=== PATIENT | female | born 1940 | race Caucasian/White ===

== ENCOUNTER → 2016-07-07 | Outpatient (CLI) | payer BC ==
[~2016-07-07] MED LIST: CALC-388 PO; CALC500C70 PO; CHOL100010 PO; CRD200 PO; CTP/1 PO; DENOINJ SC; DOCU-94 PO; FMR25 PO; FOLI1TAB8 PO; LISI40TA PO; METH2.5T PO; METO25TA3 PO; METO25TA56 PO; MULT-506 PO; ONDA8TAB6 PO; PRD/1 PO; PRED-301 PO; PROC1TAB5 PO; RIVA1TAB4 PO; TRAM-10 PO; TRIA37.5 PO; TRIATAB3 PO; XRL20 PO; ZNTT/150 PO
--- NOTE | 2016-07-07 13:46 | Discharge Instructions ---
Discharge Instructions Procedure Procedure Date: Jul 07, 2016. Reason for visit: Left Neck Mass. Discharge Discharge Date: Jul 07, 2016. Discharge Diagnosis: s/p left supraclavicular node biopsy Instructions Activity Recommendations: No limitations Return to School/Work: no limitations Recommended Home Diet: No Limitations Provider Instructions: ACTIVITY RECOMMENDATIONS: * Rest today. * Resume regular activity in one day. MEDICATIONS: * May take Tylenol or Ibuprofen as needed for pain. DIET: * Resume previous diet. SPECIAL CARE INSTRUCTIONS: Call your doctor if: * Temperature above 101 degrees F. * Pain not relieved by pain medicine ordered. * Increased drainage or redness from incision. * Notify your doctor with any questions or concerns. Call your doctor or go to the nearest Emergency Department if you experience: * Increased chest pain or shortness of breath. FOLLOW UP VISIT: Follow-up with Referring Physician as scheduled. Allergies Coded Allergies: Diphenhydramine (Verified Adverse Reaction, Mild, POOR TOLERANCE OF BENADRYL IV, 08/07/09) POOR TOLERANCE OF BENADRYL No Known Allergies (Verified , 08/19/05) Kendall Kaur Recommendations: Call your doctor if: * Temperature above 101 degrees * Pain not relieved by pain medicine ordered * There is increased drainage or redness from any incision * You have any unanswered questions or concerns. Your Doctors Instructions noted above were prepared by provider Raphael Johnson. Patient Signature Section: Patient Instructions Signature Page Vera Caban Patient (or Guardian) Signature/Date: I have read and understand the instructions given to me by my caregivers. Caregiver/RN/Doctor Signature/Date: The above-named patient and/or guardian has received patient instructions on this date. + Original Patient Signature Page (only) stays with chart. Please make copy for patient.
--- NOTE | 2016-07-07 14:33 | DIAGNOSTIC IMAGING REPORT ---
ULTRASOUND GUIDED FINE NEEDLE ASPIRATION OF LEFT SUPRACLAVICULAR MASS CLINICAL HISTORY: Left neck mass. Request for biopsy. COMPARISON STUDY: Neck CT July 01, 2016. PROCEDURE: Sonography of the left neck demonstrated several hypoechoic irregular left supraclavicular masses which measure up to 1.9 cm and correspond to the lesion shown on CT of July 01, 2016. These may reflect pathologic lymph nodes. The largest was targeted for biopsy. The procedure, risks and benefits were discussed with the patient. Informed written consent was obtained. The procedure was performed by Dr. Johnson following a timeout. Skin of the left supraclavicular region was prepped and draped in sterile fashion and local anesthesia achieved with 1% lidocaine. Under direct ultrasound guidance, 4 fine needle aspirations were performed. Initial aspiration was performed with a 25-gauge needle. The 3 subsequent aspirations were performed with 22-gauge needles. The samples were deemed preliminarily adequate by pathology. Atypical cells suspicious for malignancy were noted. The patient tolerated the procedure well and no immediate complications were evident. IMPRESSION: Ultrasound guided fine needle aspiration of 1.9 cm left supraclavicular mass/lymph node. Electronically signed by: Raphael Johnson M.D. 07/07/2016 2:31 PM Dictated Date/Time: 07/07/2016 2:28 PM
== END | disposition home or self-care (01) ==
LOC: C.ULTR 12:47
DX: C79.89 Secondary malignant neoplasm of other specified sites (principal)

== ENCOUNTER 2016-07-21 14:06 | Inpatient (IN) | payer BC, OTHER ==
[~2016-07-21] VITALS: Ht 165.1 cm; Wt 96.8 kg
[~2016-07-21 14:06] MED LIST changes: -CALC-388 PO; -CRD200 PO; -CTP/1 PO; -DENOINJ SC; -DOCU-94 PO; -FMR25 PO; +FOLI1TAB7 PO; -FOLI1TAB8 PO; -METO25TA3 PO; -METO25TA56 PO; -ONDA8TAB6 PO; -PRD/1 PO; -PROC1TAB5 PO; -RIVA1TAB4 PO; -TRAM-10 PO; -TRIA37.5 PO; -TRIATAB3 PO; -XRL20 PO
[2016-07-21] MEDS ORDERED: ACETAMINOPHEN 325 MG TAB PO PRN (14:15)
[2016-07-21] MEDS ORDERED: ONDANSETRON INJ 2 MG/ML 2 ML VIAL IV PRN (14:15)
[2016-07-21] MEDS ORDERED: POLYETHYLENE (MIRALAX) 17 GM PACK PO PRN (14:15)
[2016-07-21] MEDS ORDERED: MAGNESIUM HYDROXIDE SUSP 30 ML UDC PO PRN (14:15)
[2016-07-21 14:31] VITALS: BP 190/101; PULSE 71; TEMP 36.7; O2SAT 97; Ht 165.1 cm; Wt 96.8 kg
[2016-07-21] MEDS ORDERED: ALBUT/IPRATROP 3MG/0.5MG NEB 3 ML VIAL INH PRN (15:30)
--- NOTE | 2016-07-21 15:52 | History and Physical ---
History & Physical Date & Time of Service: Jul 21, 2016 at 15:38 Chief Complaint: Paracardial Effusion Primary Care Physician: Ernesto Becker M.D. History of Present Illness Source: patient, clinic records, hospital records This patient is a pleasant 76-year-old female that was directly admitted to the hospital from Dr. Barragan's office for worsening shortness of breath. The patient notes that she gets very winded with minimal exertion. The patient has a history of recurrent metastatic breast cancer. She had a biopsy performed on 07/07/2016 of a neck mass that confirmed it was metastatic breast CA. She also underwent a PET scan yesterday, which shows metastatic disease throughout her bones. The patient initially had breast cancer approximate 10 years ago and underwent a mastectomy and chemotherapy. She was also on tamoxifen. It was discovered that the patient had a pericardial effusion and aortic stenosis at the beginning of 2015. She was following with Dr. Jackson. There is concern that the paracardial effusion has gotten larger per PET scan yesterday and may be secondary to her metastatic disease. This is her reason for admission today. She currently denies any chest pain. No shortness of breath at rest. No recent illnesses. No fever or chills. The patient takes chronic immunosuppression, prednisone and methotrexate for a history of ankylosing spondylitis. Past Medical/Surgical History Initial breast cancer of the left breast status post mastectomy and chemotherapy in 2005 Recent discovery of a cervical mass status post biopsy confirms metastatic breast adenocarcinoma Hypertension Osteopenia Thyroid nodules Ankylosing spondylitis History of thyroid nodule status post partial thyroidectomy Secondary hyperparathyroidism GERD Social History Smoking Status: Former Smoker Alcohol Use: none Immunizations History of Influenza Vaccine: Yes History of Tetanus Vaccine?: No History of Pneumococcal: No History of Hepatitis B Vaccine: No Multi-Drug Resistant Organisms History of MDRO: No Allergies Coded Allergies: Diphenhydramine (Verified Adverse Reaction, Mild, POOR TOLERANCE OF BENADRYL IV, 08/07/09) POOR TOLERANCE OF BENADRYL No Known Allergies (Verified , 08/19/05) Home Medications Scheduled Calcium/Vitamin D (Os-Jag 500 Plus D), 1 TAB PO DAILY Cholecalciferol (Vitamin D), 1,000 INTER.UNIT PO DAILY Folic Acid (Folvite), 1 MG PO DAILY Lisinopril (Zestril), 1 TAB PO DAILY Methotrexate (Methotrexate), 2.5 MG PO Monday Multivitamin (Multivitamin), 1 TAB PO DAILY Prednisone (Prednisone), 5 MG PO DAILY Ranitidine (Zantac), 150 MG PO BID Review of Systems 10 system review performed and negative unless noted in HPI or below Physical Exam Vital Signs Date Time Temp Pulse Resp B/P Pulse Ox O2 Delivery O2 Flow Rate FiO2 07/21/16 14:31 36.7 71 18 190/101 97 Room Air GENERAL: 76-year-old female, in no acute distress, nondiaphoretic, well- developed well-nourished. SKIN: The skin was warm and dry HEAD: Normocephalic atraumatic. MOUTH: Mucous membranes slightly dry NECK: . No JVD. HEART: Regular rate and rhythm systolic murmur, muffled, at the right upper sternal border LUNGS: Mild expiratory wheeze noted bilaterally. No crackles or rhonchi. No tachypnea or accessory muscle use. ABDOMEN: Positive bowel sounds x 4.Soft, nontender, without organomegaly. No guarding or rebound tenderness. MUSCULOSKELETAL: Nonpitting edema noted in the left upper extremity. No erythema, edema or tenderness appreciated in the lower extremities bilaterally. NEURO: Patient was alert and oriented to person place and time. Normal sensation to touch. No focal neurological deficits. Diagnostics Laboratory Results Results Past 24 Hours Test 07/21/16 14:14 Range/Units Creatine Kinase MB Ratio 0-3.0 Diagnostic Radiology PET/CT SKULL-THIGH CLINICAL HISTORY: Head and neck cancer COMPARISON STUDY: CT scan dated 07/01/2016 FINDINGS: The patient was injected with 13.2 mCi of F 18 labeled FDG. Findings standard induction phase, PET/CT scanning is performed from the skull base to the upper thigh region. Within the head, there is a focus of increased FDG activity fusing to the right parietal calvarium, consistent with a metastatic deposit. Within the neck, there are multiple intensely FDG avid foci fusing to lytic lesions within the cervical spine, consistent with metastatic disease. There is an infiltrative left-sided neck mass deep to the left sternocleidomastoid muscle measuring 5 x 3.5 x 3 cm. This Is FDG avid with SUV maximum of 6.3. There is a 2.8 cm FDG avid left superior axillary/retropectoral mass with SUV maximum of 7.8. There are FDG avid supraclavicular lymph nodes. There is an FDG avid left peritonsillar mass with SUV maximum of 4.8. There are mildly FDG avid contralateral nonpathologically enlarged right jugular digastric lymph nodes. There is an FDG avid lesion within the right humeral head and right medial clavicle consistent with metastatic disease. Within the chest, there are multiple FDG avid mediastinal lymph nodes. There are multiple FDG avid rib lesions consistent with metastatic disease. There is an FDG avid right scapular lesion consistent with metastatic disease. There is a large pericardial effusion. There are small bilateral pleural effusions right greater than left. There is right middle lobe atelectasis/consolidation which is FDG avid. There are FDG avid lingular airspace opacities. There are multiple FDG avid vertebral lesions. Within the abdomen and pelvis, there are no FDG avid hepatic lesions. There are FDG avid para-aortic lymph nodes. There is an FDG avid lymph node the gastrohepatic ligament. Both adrenal glands are FDG avid, although not pathologically enlarged. There are multiple FDG avid pelvic bony metastasis. There are FDG avid lesions within the proximal femurs. . IMPRESSION: 1. Extensive FDG avid lytic bony disease involving the proximal femurs pelvis lumbar spine thoracic spine cervical spine and calvarium, consistent with metastatic disease 2. FDG avid infiltrative left neck mass measuring 5 x 3.5 x 3 cm, consistent with neoplasm 3. FDG avid left peritonsillar mass consistent with neoplasm 4. Bilateral FDG avid cervical lymph nodes consistent with metastatic disease 5. FDG avid mediastinal and hilar lymph nodes, consistent with metastatic disease 6. Large pericardial effusion 7. Small bilateral pleural effusions 8. FDG avid lymph nodes within the abdomen consistent with metastatic disease. 9. Both adrenal glands are FDG avid. Electronically signed by: Hernandez Brizuela M.D. 07/18/2016 12:12 PM Dictated Date/Time: 07/18/2016 11:54 AM The status of this report is Signed. Draft = Not yet reviewed or approved by Radiologist. Signed = Reviewed and approved by Radiologist. Impression Assessment and Plan 76-year-old female with a history of breast cancer now with recurrence and metastatic disease directly admitted to the hospital with dyspnea on exertion found to have a large pericardial effusion on the PET scan that was performed yesterday Pericardial effusion -Admit to telemetry -Stat EKG -CMP, CBC, cardiac enzymes, magnesium -Cardiology consult -echo Metastatic breast CA -Consult Dr. Barragan from oncology Hypertension-patient is significantly hypertensive today. This is likely secondary to anxiety as she is very upset about her recent diagnosis. -Continue lisinopril 40 mg daily -Hydralazine 10 mg IV q 6 hr PRN Ankylosing spondylitis -Continue outpatient prednisone 4 mg daily for now -Continue methotrexate 75 mg on Tuesdays GERD -Pantoprazole 40 mg daily while in-house -Upon discharge, resume ranitidine 150 mg daily DVT prophylaxis -Lovenox 40 mg subQ daily -TEDS, SCDs CODE STATUS -LEVEL I FULL CODE Level of Care Telemetry Advanced Directives Existing Advance Directive: Yes Existing Living Will: Yes Existing Power of Gis Web Developer: Yes Resuscitation Status FULL RESUSCITATION VTE Prophylaxis VTE Risk Assessment Done? Y/N: Yes Risk Level: Low Given or contraindicated: Enoxaparin (Lovenox)SQ, T.E.D. Stockings, SCD's Assessment and Plan Attending addendum: I have seen and examined this patient, have directed their medical care, and agree with the H&P as noted above.
[2016-07-21 16:00] VITALS: O2SAT 97
[2016-07-21 16:03] LABS: BASO % 0.3 %; BASO ABS # 0.02 K/uL (0-0.2); COMPLETE YES; EOS % 0.1 %; HEMATOCRIT 42.5 % (37-47); IG% 0.1 %; LYMPH % 18.6 %; LYMPH ABS # 1.27 K/uL (1.2-3.4); MEAN CELL VOLUME 97.7 fL (80-100); MEAN CORPUSCULAR HEMOGLOBIN 31.7 pg (25-34); MEAN CORPUSCULAR HGB CONC 32.5 g/dl (32-36); MONO % 4.4 %; NEUT % 76.5 %; PLATELET COUNT 210 K/uL (130-400); RED BLOOD COUNT 4.35 M/uL (4.2-5.4); WHITE BLOOD COUNT 6.82 K/uL (4.8-10.8)
[2016-07-21 16:10] LABS: PROTHROMBIN TIME (PATIENT) 10.9 SECONDS (9.0-12.0)
[2016-07-21 16:26] LABS: BUN/CREATININE RATIO 20.3 (10-20); CALCIUM 9.5 mg/dl (8.5-10.1); CREATININE 0.93 mg/dl (0.60-1.20); MAGNESIUM 2.3 mg/dl (1.8-2.4); POTASSIUM 4.8 mmol/L (3.5-5.1)
[2016-07-21 16:28] VITALS: BP 185/97; PULSE 73; TEMP 36.8; O2SAT 94
[2016-07-21 16:31] LABS: ALB/GLOB RATIO 0.9 (0.9-2); CKMB/CK RATIO 2.6 (0-3.0)
--- NOTE | 2016-07-21 18:36 | CARDIOLOGY CONSULTATION ---
DATE OF CONSULTATION: 07/21/2016 TIME: 1715. CONSULTING PHYSICIAN: Dr. Brasher and Elmira Coyle PA-C. REASON FOR CONSULTATION: Pericardial effusion. PRIMARY COMPLETION MANAGER: Dr. Jackson. HISTORY OF PRESENT ILLNESS: Ms. Caban is a very pleasant 76-year-old female with metastatic breast cancer, nonsevere aortic stenosis, mild cardiomyopathy, and pericardial effusion who presented to [facility] from Dr. Barragan's office due to pericardial effusion and shortness of breath. She was diagnosed with pericardial effusion in September of 2015. It was described as moderate at that time. She also had nonsevere aortic stenosis as well as reduced LV systolic function with an EF of approximately 40%. She was seen initially by Dr. Cummins who recommended cardiac catheterization and pericardiocentesis; however, she declined. She then followed with Dr. Jackson. Etiology of the pericardial effusion was not known at that time. She opted for a wait and watch approach with repeat echocardiogram in October 2015, which demonstrated stable but moderate sized pericardial effusion with no echocardiographic evidence of tamponade physiology. Her EF was 40% at that time with moderate global hypokinesis. Over the last 9 months, she has had progressively worsening dyspnea with exertion. This has slowly progressed. She can now walk only approximately half of a block before having to stop to catch her breath. She also has dyspnea with climbing 1 flight of stairs in her [place]-micky home. Bending over at the waist also causes her to have shortness of breath. She denies shortness of breath at rest, orthopnea, edema, PND, syncope, near syncope, chest pain, diaphoresis. On 07/07/2016, she had a biopsy performed of a left neck mass which demonstrated metastatic breast cancer. She underwent a PET scan earlier this week which demonstrated metastatic cancer including bone metastases. Her breast cancer was treated approximately 16 years ago with left mastectomy and chemotherapy. She did not receive radiation therapy. There was concern on PET scan that the pericardial effusion was larger than previously described. REVIEW OF SYSTEMS: As above and review of systems otherwise negative. PAST MEDICAL HISTORY: 1. Breast cancer status post mastectomy and chemotherapy greater than 10 years ago. 2. Newly found metastatic breast cancer. 3. Hypertension. 4. Aortic stenosis. 5. Cardiomyopathy. 6. Pericardial effusion. 7. Osteopenia. 8. Ankylosing spondylitis. 9. Secondary hyperparathyroidism. 10. GERD. HOME MEDICATIONS: Include lisinopril 40 mg daily, methotrexate, prednisone, multivitamin, folic acid, ranitidine. INPATIENT MEDICATIONS: Include lisinopril 40 mg daily, Lovenox 40 mg subQ daily, methotrexate 7.5 mg daily, prednisone 4 mg daily. ALLERGIES: BENADRYL HAD AN INTOLERANCE LISTED FEELING HYPER. No known drug allergies. SOCIAL HISTORY: Quit smoking in the past. Occasional alcohol. No drugs. 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 She has a son and a daughter. Her daughter, Mayito is present at the bedside. She currently lives at home alone in a 2-micky house. FAMILY HISTORY: Mother had valvular heart disease. PHYSICAL EXAMINATION: VITAL SIGNS: Temperature 36.8 degrees, heart rate 73 beats per minute, respiration rate 18, blood pressure 185/97 mmHg, oxygen saturation 94% on room air. GENERAL: In no acute distress. She is alert and oriented. HEENT: Anicteric sclerae. NECK: No appreciable JVD. No bruits. Normal carotid upstrokes. There is a left neck mass noted. It is nontender and not erythematous. CARDIAC: PMI nonpalpable. There is no ventricular heave. Regular, normal S1, S2. 2/6 mid peaking systolic ejection murmur best heard at the right upper sternal border. No rubs or gallops. LUNGS: Clear to auscultation bilaterally without wheezes, rales or rhonchi. ABDOMEN: Soft, nontender, nondistended, normoactive bowel sounds, no bruits. EXTREMITIES: No cyanosis or edema. 2+ radial pulses bilaterally. 2+ dorsalis pedis pulses bilaterally. No palpable cords. PSYCHIATRIC: Affect appears appropriate. LABORATORY DATA: White blood cell count 6.82, hemoglobin 13.8, platelets 210. Sodium 141, potassium 4.8, BUN 19, creatinine 0.9, AST 21, ALT 21, troponin 0.021, albumin 3.4. INR 1. PET scan report reviewed. PET scan 07/18/2016 demonstrated extensive FDG avid lytic bony disease involving the proximal femurs, pelvis, lumbar spine, thoracic spine, cervical spine and calvarium, consistent with metastatic disease. There is also activity including the left neck mass measuring 5 x 3.5 x 3 cm, left peritonsillar mass consistent with neoplasm, cervical lymph nodes, hilar lymph nodes, mediastinal lymph nodes. There was large pericardial effusion and small bilateral pleural effusions. There were lymph nodes with activity in the abdomen as well. Both adrenal glands also FDG avid. ECG upon presentation personally reviewed. Sinus rhythm at 75 beats per minute. First degree AV block. Echocardiogram reports reviewed. Outpatient records reviewed. ASSESSMENT AND PLAN: 1. Pericardial effusion: No evidence of tamponade physiology clinically. She is actually hypertensive and with a normal heart rate. Agree with echocardiogram which is currently pending. The etiology has not yet been defined but most likely the etiology of her pericardial effusion is metastatic breast cancer. For this reason, if she does have a large pericardial effusion, we would recommend a pericardial window rather than a pericardiocentesis as it is likely to recur. This was discussed with her in detail as well as her daughter. There is no urgent indication for pericardiocentesis and if she does have evidence of tamponade throughout her hospital stay, pericardiocentesis can be done emergently. This is not indicated at this time. 2. Aortic stenosis: Not likely severe. Echocardiogram pending tomorrow. Would likely monitor this over time. Certainly with her most recent PET scan, she is not a good surgical candidate and current plans for her metastatic cancer not yet defined. 3. Cardiomyopathy: Etiology uncertain. She has not had a cardiac catheterization to evaluate for ischemic heart disease. Would not pursue that at this time, given her metastatic cancer and other issues. She has not presented with acute coronary syndrome and her shortness of breath may be due to other factors. Also, chemotherapy could have caused her cardiomyopathy. Repeat echo is pending and if left ventricular systolic dysfunction is noted, would consider carvedilol or metoprolol succinate in addition to her DANAY inhibitor. 4. Hypertension: Continue lisinopril. If she remains hypertensive, would recommend carvedilol, given her left ventricular systolic dysfunction. 5. Shortness of breath: Could be secondary to her metastatic cancer, pericardial effusion, or other etiology. Her aortic valve has not appeared to be severely stenotic and therefore that would not likely account for her symptoms. Definitive ischemic evaluation has not been performed and would hold off on that for now. If she truly has a large pericardial effusion, she may benefit symptomatically from pericardial window as noted above. 6. Disposition: Cardiology will continue to follow highly complex medical issues. Thank you for allowing me to participate in the care of Ms. Caban.
[2016-07-21 19:35] VITALS: BP 148/85; PULSE 71; TEMP 36.8; O2SAT 91
[2016-07-21 20:54] LABS: URINE APPEARANCE CLEAR (CLEAR); URINE BILIRUBIN NEG (NEG); URINE COLOR YELLOW; URINE EPITHELIAL CELL AUTO >30 /lpf (0-5); URINE NITRITE NEG (NEG); URINE SPECIFIC GRAVITY 1.018 (1.000-1.030); UROBILINOGEN NEG (NEG)
[2016-07-21 21:04] LABS: MANUAL MICROSCOPIC REQUIRED? NO; REVIEW REQ? NO
[2016-07-21] MEDS ORDERED: TRAMADOL HCL 50 MG TAB PO PRN (22:00)
[2016-07-22] VITALS (8 sets, daily range): BP systolic 128–160; BP diastolic 78–90; PULSE 68–74; TEMP 36.6–36.9; O2SAT 91–93
[2016-07-22 07:30] LABS: BASO % 0.3 %; EOS % 1.8 %; HEMATOCRIT 41.3 % (37-47); MEAN CELL VOLUME 98.3 fL (80-100); MEAN CORPUSCULAR HEMOGLOBIN 31.7 pg (25-34); MEAN CORPUSCULAR HGB CONC 32.2 g/dl (32-36); MEAN PLATELET VOLUME 10.9 fL (7.4-10.4); MONO % 8.5 %; NEUT % 46.2 %; PLATELET COUNT 213 K/uL (130-400); WHITE BLOOD COUNT 6.03 K/uL (4.8-10.8)
[2016-07-22 07:31] LABS: BASO ABS # 0.02 K/uL (0-0.2); COMPLETE YES; IG% 0.2 %; LYMPH ABS # 2.59 K/uL (1.2-3.4)
[2016-07-22 07:41] LABS: PROTHROMBIN TIME (PATIENT) 11.2 SECONDS (9.0-12.0)
[2016-07-22 07:56] LABS: BUN/CREATININE RATIO 20.5 (10-20); CREATININE 0.99 mg/dl (0.60-1.20); MAGNESIUM 2.3 mg/dl (1.8-2.4); POTASSIUM 4.1 mmol/L (3.5-5.1)
--- NOTE | 2016-07-22 08:56 | ECHOCARDIOGRAM REPORT ---
*NOTICE TO RECEIVING DEMOCRAT AGENCY This information is strictly Confidential and protected under [place] law. [place] law prohibits you from making any further disclosure of this information unless further disclosure is expressly permitted by the written consent of the person to whom it pertains or is authorized by law. A general authorization for the release of medical or other information is not sufficient for this purpose. Hospital accepts no responsibility if the information is made available to any other person, INCLUDING THE PATIENT. Interpretation Summary * Name: IVONNE LEGGETT Study Date: 07/22/2016 07:35 AM BP: 190/101 mmHg * Patient Location: C.2T\S\E215\S\1 HR: 70 * : 1940 (M/d/yyyy) Gender: Female Height: 65 in * Age: 76 yrs Ethnicity: CA Weight: 215 lb * Ordering Physician: Elmira Coyle * Performed By: Martine Vargas RCS * * Reason For Study: PERICARDIAL EFFUSION * BSA: 2.0 m2 * -- Conclusions -- * 1. Normal left ventricular size with mildly reduced systolic function. Estimated EF 45%. Mild global hypokinesis. Mild concentric left ventricular hypertrophy. Type I diastolic dysfunction. * 2. Mild biatrial dilation. * 3. Mild aortic stenosis with trace regurgitation. * 4. Mild mitral regurgitation. * 5. Large circumferential pericardial effusion (greater than 2 cm in some views). There is right atrial compression noted. * 6. No prior study available for comparison. Procedure Details * A complete two-dimensional transthoracic echocardiogram was performed (2D, M-mode, Doppler and color flow Doppler). Left Ventricle * Normal left ventricular size with mildly reduced systolic function. Estimated EF 45%. Mild global hypokinesis. Mild concentric left ventricular hypertrophy. Type I diastolic dysfunction. Right Ventricle * The right ventricle is normal in size and function. * The right ventricular systolic function is normal as assessed by tricuspid annular plane systolic excursion (TAPSE) (normal >1.5 cm). Atria * The left atrium is mildly dilated. * The right atrium is mildly dilated. * There is no evidence of atrial septal defect, but resolution does not allow assessment for a patent foramen ovale. Mitral Valve * There is moderate to severe mitral annular calcification. * There is no mitral valve stenosis. * There is mild mitral regurgitation. Tricuspid Valve * The tricuspid valve is not well visualized, but is grossly normal. * There is no tricuspid stenosis. * There is trace tricuspid regurgitation. Aortic Valve * Mild aortic stenosis with trace regurgitation. * The aortic valve is trileaflet. Pulmonic Valve * The pulmonic valve is not well seen, but is grossly normal. * There is no pulmonic valvular stenosis. * Trace pulmonic valvular regurgitation. Great Vessels * The aortic root is normal size. Pericardium/Pleural * Large circumferential pericardial effusion (greater than 2 cm in some views). There is right atrial compression noted. Great Vessels * Top normal IVC size with normal inspiratory collapse. MMode 2D Measurements and Calculations IVSd 1.2 cm IVSs 1.8 cm LVIDd 4.6 cm LVIDs 3.3 cm LVPWd 1.4 cm LVPWs 1.8 cm IVS/LVPW 0.89 FS 28.1 % EDV(Teich) 98.0 ml ESV(Teich) 44.6 ml EF(Teich) 54.5 % EDV(cubed) 98.2 ml ESV(cubed) 36.4 ml EF(cubed) 62.9 % % IVS thick 51.4 % % LVPW thick 33.5 % LV mass(C)d 229.6 grams LV mass(C)dI 112.6 grams/m\S\2 LV mass(C)s 254.3 grams LV mass(C)sI 124.7 grams/m\S\2 SV(Teich) 53.4 ml SI(Teich) 26.2 ml/m\S\2 SV(cubed) 61.7 ml SI(cubed) 30.3 ml/m\S\2 Ao root diam 2.8 cm Ao root area 6.1 cm\S\2 LA dimension 4.6 cm LA/Ao 1.6 LVOT diam 2.1 cm LVOT area 3.3 cm\S\2 LVAd ap4 34.5 cm\S\2 LVLd ap4 8.9 cm EDV(MOD-sp4) 110.8 ml EDV(sp4-el) 113.9 ml LVAs ap4 23.3 cm\S\2 LVLs ap4 7.9 cm ESV(MOD-sp4) 57.7 ml ESV(sp4-el) 58.4 ml EF(MOD-sp4) 47.9 % EF(sp4-el) 48.7 % LVAd ap2 34.7 cm\S\2 LVLd ap2 9.1 cm EDV(MOD-sp2) 109.1 ml EDV(sp2-el) 112.3 ml LVAs ap2 25.1 cm\S\2 LVLs ap2 8.1 cm ESV(MOD-sp2) 64.2 ml ESV(sp2-el) 66.1 ml EF(MOD-sp2) 41.2 % EF(sp2-el) 41.1 % LVLd %diff -0.74 % EDV(MOD-bp) 119.6 ml LVLs %diff 2.5 % ESV(MOD-bp) 55.7 ml EF(MOD-bp) 53.5 % SV(MOD-sp4) 53.0 ml SI(MOD-sp4) 26.0 ml/m\S\2 SV(MOD-sp2) 44.9 ml SI(MOD-sp2) 22.0 ml/m\S\2 SV(MOD-bp) 64.0 ml SI(MOD-bp) 31.4 ml/m\S\2 SV(sp4-el) 55.5 ml SI(sp4-el) 27.2 ml/m\S\2 SV(sp2-el) 46.2 ml SI(sp2-el) 22.7 ml/m\S\2 Doppler Measurements and Calculations MV E max tisha 111.6 cm/sec MV A max tisha 144.0 cm/sec MV E/A 0.78 MV P1/2t max tisha 93.0 cm/sec MV P1/2t 103.0 msec MVA(P1/2t) 2.1 cm\S\2 MV dec slope 264.4 cm/sec\S\2 MV dec time 0.21 sec Ao V2 max 256.2 cm/sec Ao max PG 26.2 mmHg Ao max PG (full) 23.0 mmHg Ao V2 mean 182.8 cm/sec Ao mean PG 14.9 mmHg Ao mean PG (full) 12.8 mmHg Ao V2 VTI 55.0 cm MARII(I,A) 1.4 cm\S\2 MARII(I,D) 1.4 cm\S\2 MARII(V,A) 1.2 cm\S\2 MARII(V,D) 1.2 cm\S\2 LV V1 max PG 3.3 mmHg LV V1 mean PG 2.0 mmHg LV V1 max 90.4 cm/sec LV V1 mean 65.8 cm/sec LV V1 VTI 22.8 cm SV(Ao) 334.8 ml SI(Ao) 164.1 ml/m\S\2 SV(LVOT) 75.9 ml SI(LVOT) 37.2 ml/m\S\2 TV E max tisha 53.5 cm/sec PA V2 max 90.6 cm/sec PA max PG 3.3 mmHg
[2016-07-22] MEDS ORDERED: LISINOPRIL 40 MG TAB PO SCH (09:00)
[2016-07-22] MEDS ORDERED: ENOXAPARIN 40 MG/0.4 ML SYR SQ SCH (09:00)
[2016-07-22] MEDS ORDERED: RANITIDINE HCL 150 MG TAB PO SCH (09:00)
--- NOTE | 2016-07-22 10:18 | CARDIOLOGY PROGRESS NOTE ---
DATE: 07/22/2016 DATE: 07/22/2016. TIME: 9:34 a.m. SUBJECTIVE: She denies chest pain, shortness of breath, syncope, near syncope, or palpitations. She does feel tired today. OBJECTIVE: VITAL SIGNS: Temperature 36.6 degrees, heart rate 69 beats per minute, respiration rate 20, blood pressure 158/84 mmHg, oxygen saturation 92% on room air, weight 96.8 kg. GENERAL: No acute distress. She is alert. NECK: No appreciable JVD. CARDIAC EXAMINATION: No ventricular heave. Regular, normal S1, S2. 2/6 early to mid peaking systolic ejection murmur best heard at the right upper sternal border. No rubs or gallops. LUNGS: There was inspiratory and expiratory wheezing heard in both lung vargas. ABDOMEN: Obese, soft, nontender, nondistended. Normoactive bowel sounds. EXTREMITIES: No cyanosis or edema. PSYCHIATRIC: Affect appears appropriate. MEDICATIONS: Include lisinopril 40 mg daily, Lovenox 40 mg subQ daily, methotrexate 7.5 mg, prednisone 4 mg. LABORATORY DATA: White blood cell count 6.03, hemoglobin 13.3, platelets 213. Sodium 142, potassium 4.1, BUN 20, creatinine 0.9, magnesium 2.3. Echocardiogram images personally reviewed. Normal LV size with mildly reduced systolic function. Estimated EF 45%. Mild global hypokinesis. Type 1 diastolic dysfunction. Mild aortic stenosis and trace AI. Mild MR. There was a large circumferential pericardial effusion greater than 2 cm in some views. There was right atrial compression noted. Telemetry personally reviewed. No arrhythmia. ASSESSMENT AND PLAN: 1. Pericardial effusion: There is some compression of the right atrium from the pericardial effusion; however, clinically she is not in tamponade. This is concerning however that there is developing hemodynamic significance of the pericardial effusion and she has had worsening dyspnea with exertion. Her effusion is likely malignant given her metastatic malignancy. Recommend diagnostic and therapeutic drainage. We discussed 2 options, pericardiocentesis versus pericardial window. Given the fact that this is likely malignant and there is a higher chance of recurrence, I recommend pericardial window. This is not urgent, but does appear to be indicated and would do during this hospitalization if possible. A consultation for thoracic surgery Dr. Tena has been placed. A page has been sent however he is currently unavailable as he is in the operating room. NPO at this time in case there is a possibility of this procedure being done today. If urgent indications occur, a pericardiocentesis can be done therapeutically while awaiting possible window placement. 2. Aortic stenosis: It is nonsevere. Appeared mild on echo. This can be followed over time and would not account for her dyspnea. 3. Cardiomyopathy: Etiology uncertain but she does have mildly reduced systolic function. Could be related to prior chemotherapy. Continue DANAY inhibitor if blood pressure allows. Would also start carvedilol or metoprolol succinate however would not want to drop her blood pressure too much at this point with large pericardial effusion and therefore this can wait until after surgical intervention. 4. Hypertension: She is on lisinopril. Would not aggressively treat hypertension at this point as hypotension could precipitate worsening hemodynamic compromise from her pericardial effusion. 5. Shortness of breath: Could be related to her pericardial effusion. Hopefully, she feels much improved after therapeutic drainage. 6. Disposition: A consultation with Dr. Tena has been placed. If there are any questions or concerns over the weekend, please do not hesitate to call Dr. Babcock who will be covering from a cardiology perspective.
--- NOTE | 2016-07-22 14:41 | Discharge Instructions ---
Discharge Instructions Admission Reason for Admission: Paracardial Effusion Discharge Discharge Diagnosis / Problem: Pericardial effusion Discharge Goals Goal(s): Decrease discomfort, Improve function, Increase independence Activity Recommendations Activity Limitations: resume your previous activity . Instructions / Follow-Up Instructions / Follow-Up Follow up with Dr. Tena on 07/25/2016, at 6:45am. Do not eat or drink anything after midnight the night before surgery. Current Hospital Diet Patient's current hospital diet: AHA Diet (Heart Healthy) Discharge Diet Recommended Diet: AHA Diet (Heart Healthy) Pending Studies Studies pending at discharge: no Medical Emergencies . Who to Call and When: Medical Emergencies: If at any time you feel your situation is an emergency, please call 911 immediately. . Non-Emergent Contact Non-Emergency issues call your: Primary Care Provider Call Non-Emergent contact if: you have a fever, your pain is not controlled, your pain is worsening, you have any medication questions . . "Provider Documentation" section prepared by Robi Dobbins. VTE Core Measure Inpt VTE Proph given/why not?: Enoxaparin (Lovenox)VAN, T.E.Clare Stockings, SCD's
--- NOTE | 2016-07-22 19:21 | Discharge Summary ---
Discharge Summary Admission Date: Jul 21, 2016 at 14:06 Discharge Date: Jul 22, 2016 Discharge Disposition: Home Principal Diagnosis: Pericardial effusion Problems/Secondary Diagnoses: Metastatic breast ca, anklyosing spondylitis Immunizations: Have You Had Influenza Vaccine: Yes History of Tetanus Vaccine?: No History of Pneumococcal: No History of Hepatitis B Vaccine: No Procedures: TTE: Interpretation Summary * Name: IVONNE LEGGETT Study Date: 07/22/2016 07:35 AM BP: 190/101 mmHg * Patient Location: [facility]\S\1 HR: 70 * : 1940 (M/d/yyyy) Gender: Female Height: 65 in * Age: 76 yrs Ethnicity: CA Weight: 215 lb * Ordering Physician: Elmira Coyle * Performed By: Martine Vargas [facility] * * Reason For Study: PERICARDIAL EFFUSION * BSA: 2.0 m2 * -- Conclusions -- * 1. Normal left ventricular size with mildly reduced systolic function. Estimated EF 45%. Mild global hypokinesis. Mild concentric left ventricular hypertrophy. Type I diastolic dysfunction. * 2. Mild biatrial dilation. * 3. Mild aortic stenosis with trace regurgitation. * 4. Mild mitral regurgitation. * 5. Large circumferential pericardial effusion (greater than 2 cm in some views). There is right atrial compression noted. * 6. No prior study available for comparison. Consultations: Cardiology: Dr. Singh Cardiothoracic surgery: Dr. Tena Medication Reconciliation Continued Medications: Calcium/Vitamin D (Os-Jag 500 Plus D) Tab 1 TAB PO DAILY, TAB Cholecalciferol (Vitamin D) 1,000 Inter.unit Tab 1000 INTER.UNIT PO DAILY, TAB Folic Acid (Folvite) 1 Mg Tab 1 MG PO DAILY, TAB Lisinopril (Zestril) 40 Mg Tab 1 TAB PO DAILY for 90 Days, #90 TAB 1 Refill Methotrexate (Methotrexate) 2.5 Mg Tab 2.5 MG PO Monday, TAB Multivitamin (Multivitamin) Tab 1 TAB PO DAILY, TAB Prednisone (Prednisone) 5 Mg Tab 5 MG PO DAILY, TAB Ranitidine (Zantac) 150 Mg Tab 150 MG PO BID, TAB Discharge Exam Physical Exam: General Appearance: no apparent distress Eyes: sclerae normal Respiratory/Chest: lungs clear, no respiratory distress Cardiovascular: regular rate, rhythm, normal peripheral pulses Abdomen / GI: non tender, soft Extremities: no pedal edema Skin: warm/dry Hospital Course Ms. Leggett is a 76-year-old lady with a history of recurrent metastatic breast cancer. She had an outpatient PET scan that showed a large pericardial effusion and was seen in her oncologist's office for follow up and complained of progressive exertional dyspnea. She was admitted directly to the hospital. She was evaluated by Cardiology and underwent transthoracic echocardiogram this morning that showed some early tamponade physiology. Clinically, she had no signs of tamponade. She was evaluated by Cardiothoracic Surgery and recommended discharge home and return for pericardial window on Monday, 2016. Total Time Spent: Greater than 30 minutes This includes examination of the patient, discharge planning, medication reconciliation, and communication with other providers. Discharge Instructions Please refer to the electronic Patient Visit Report (Discharge Instructions) for additional information. Follow-Up Follow up with CT surgery on 07/25/2016 for pericardial window. Follow up with PCP within one week. Additional Copies To Ernesto Becker M.D.
[2016-08-10] MEDS ORDERED: PRD/1 PO (16:01)
--- NOTE | 2016-08-11 10:33 | SURGICAL CONSULTATION ---
DATE OF CONSULTATION: 07/22/2016 REASON FOR CONSULTATION: pericardial effusion. HISTORY OF PRESENT ILLNESS: This is a 76-year-old female with a history of breast cancer which was resected several years ago who was found to have recurrent disease in a large left neck mass which was biopsied. She also has evidence of bone metastases in her spine. She actually looks quite good. She has a right pleural effusion which was rather small and a pericardial effusion which has gotten larger. Dr. Alex Singh did an echocardiogram and was concerned about the hemodynamic effects of this. The patient is hemodynamically stable; however, I believe we are probably dealing with a malignant pleural effusion. She is going to be discharged today and I am going to bring her back to the hospital on 07/25/2016 and perform a pericardial window thoracoscopically and drain her right pleural effusion as well as her pericardial effusion. For the specifics of the rest of this consultation please refer to my history and physical date 07/22/2016, but which is for her admission on 07/25/2016. ISIDRA
[2016-08-23] MEDS ORDERED: TRIATAB3 PO (12:13)
== END 2016-07-22 16:35 | disposition home or self-care (01) | DRG 315 ==
LOC: C.2T 14:06
PROVIDERS: ADMIT Hospitalist; ATTEND Hospitalist
PROC: 0W9D40Z Drainage of Pericardial Cavity with Drainage Device, Percutaneous Endoscopic Approach (ICD-10-PCS; principal; 2016-07-22)
DX: I31.3 Pericardial effusion (noninflammatory) (principal); C79.51 Secondary malignant neoplasm of bone; I42.9 Cardiomyopathy, unspecified; N25.81 Secondary hyperparathyroidism of renal origin; J90 Pleural effusion, not elsewhere classified; C79.81 Secondary malignant neoplasm of breast; M45.9 Ankylosing spondylitis of unspecified sites in spine; Z85.3 Personal history of malignant neoplasm of breast; Z79.52 Long term (current) use of systemic steroids; Z90.12 Acquired absence of left breast and nipple; E89.0 Postprocedural hypothyroidism; M85.80 Other specified disorders of bone density and structure, unspecified site; K21.9 Gastro-esophageal reflux disease without esophagitis; Z87.891 Personal history of nicotine dependence; Z88.8 Allergy status to other drugs, medicaments and biological substances; Z79.899 Other long term (current) drug therapy; I10 Essential (primary) hypertension; I35.0 Nonrheumatic aortic (valve) stenosis; Z82.49 Family history of ischemic heart disease and other diseases of the circulatory system

== ENCOUNTER 2016-07-25 06:54 | Inpatient (IN) | payer BC, OTHER ==
--- NOTE | 2016-07-22 15:52 | Discharge Instructions ---
Discharge Instructions Admission Reason for Admission: Pericardial Effusion Discharge Discharge Diagnosis / Problem: Pericardial effusion Discharge Goals Goal(s): Decrease discomfort, Improve function, Increase independence Activity Recommendations Activity Limitations: resume your previous activity . Instructions / Follow-Up Instructions / Follow-Up You are scheduled for surgery with Dr. Tena on 07/25/2016 at 8:45am. You should arrive at 6:45am. You should not eat or drink anything after midnight on Monday night before surgery. Current Hospital Diet Patient's current hospital diet: Discharge Diet Recommended Diet: Regular Diet (Nothing to eat or drink after midnight before surgery on 07/25/2016) Procedures Procedures Performed: Echocardiogram: Interpretation Summary * Name: IVONNE LEGGETT Study Date: 07/22/2016 07:35 AM BP: 190/101 mmHg * Patient Location: [facility]\\S\\E215\\S\\1 HR: 70 * : 1940 (M/d/yyyy) Gender: Female Height: 65 in * Age: 76 yrs Ethnicity: CA Weight: 215 lb * Ordering Physician: Elmira Coyle * Performed By: Martine Vargas [facility] * * Reason For Study: PERICARDIAL EFFUSION * BSA: 2.0 m2 * -- Conclusions -- * 1. Normal left ventricular size with mildly reduced systolic function. Estimated EF 45%. Mild global hypokinesis. Mild concentric left ventricular hypertrophy. Type I diastolic dysfunction. * 2. Mild biatrial dilation. * 3. Mild aortic stenosis with trace regurgitation. * 4. Mild mitral regurgitation. * 5. Large circumferential pericardial effusion (greater than 2 cm in some views). There is right atrial compression noted. * 6. No prior study available for comparison. Pending Studies Studies pending at discharge: no Medical Emergencies . Who to Call and When: Medical Emergencies: If at any time you feel your situation is an emergency, please call 911 immediately. . Non-Emergent Contact Non-Emergency issues call your: Primary Care Provider Call Non-Emergent contact if: your pain is not controlled, your pain is worsening, you have any medication questions . . "Provider Documentation" section prepared by Robi Dobbins. VTE Core Measure Inpt VTE Proph given/why not?: Enoxaparin (Lovenox)SQ
--- NOTE | 2016-07-22 20:09 | HISTORY & PHYSICAL EXAMINATION ---
DATE OF ADMISSION: 07/25/2016 PREOPERATIVE HISTORY AND PHYSICAL REASON FOR SURGERY: Pericardial effusion. HISTORY OF PRESENT ILLNESS: Vera Caabn is a delightful 76-year-old female who presented yesterday with a pericardial effusion which has been watched for a while. She was evaluated by Dr. Eddi Barragan for worsening shortness of breath and states that this has been going on for the last few weeks. She has recurrent metastatic breast cancer and had a biopsy done on 07/07/2016 on a large right neck mass which, while not painful, was confirmed to be metastatic breast cancer from a fine needle aspiration. The patient has metastatic bony disease, picked up on PET scan yesterday. She has a history of having breast cancer 11 years ago and had a left mastectomy. She has had a small pericardial effusion which has gotten larger. The CT PET showed this and an echocardiogram was performed today and Dr. Alex Singh called me and stated that there was some collapse of the right atrium and they were concerned given her history of metastatic breast cancer this may be malignant. I agree with him that a simple pericardiocentesis would not be in order and the patient actually looks very good otherwise. I had a long talk with the patient and her daughter at the bedside today. PAST MEDICAL HISTORY: 1. Recurrent breast cancer with possible metastatic pericardial effusion. 2. History of breast cancer 16 years ago. 3. Hypertension. 4. Osteopenia. 5. Ankylosing spondylitis. 6. Secondary hyperparathyroidism. 7. Gastroesophageal reflux disease. PAST SURGICAL HISTORY: 1. 2, para 2, abort 0. 2. Left thyroid lobectomy. 3. Left modified radical mastectomy. MEDICATIONS: 1. Calcium/vitamin supplements. 2. Ranitidine. 3. Prednisone. 4. Vitamin D. 5. Folic catheter. 6. Lisinopril. 7. Methotrexate. 8. Multivitamins. ALLERGIES: 1. THE PATIENT DOES NOT TOLERATE BENADRYL WELL. SOCIAL HISTORY: The patient is originally from [facility] but immigrated to this country when she was 9 years of age. 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 She does not use alcohol, but was a smoker in the past. She is . She lives here in [place]. Her daughter who was with her is lives at [place], but is visiting today. She also has a son in the area. FAMILY MEDICAL HISTORY: The patient's mother did from valvular heart disease. Her 2 children are healthy. She has no grandchildren. REVIEW OF SYSTEMS: Her weight has been stable. Her only real complaint is she is "tired." She denies night sweats. She has no productive cough. She does have marked dyspnea. She gets quite fatigued quite easily. She has metastatic disease not only in femurs, in her pelvis and lumbar and thoracic spine but also her calvarium. Left neck mass is 5 X 3.5 X 3.0 cm and also has a left peritonsillar mass. ASSESSMENT AND PLAN: 1. Pericardial effusion which may be malignant. I had a long talk with the patient. I have her scheduled for surgery at 8:45 on 07/25/2016. She is going to be discharged today and will come back on the for her right thoracoscopy with pericardial window. She understands. I had a long talk on 2 occasions today with the patient and her daughter. ISIDRA
[~2016-07-25] VITALS: Ht 162.6 cm; Wt 96.2 kg
[2016-07-25] VITALS (8 sets, daily range): BP systolic 111–171; BP diastolic 67–89; PULSE 57–75; TEMP 36.5–37; O2SAT 91–95; Ht 162.6 cm; Wt 96.2 kg
[~2016-07-25 06:54] MED LIST changes: +LACTATED RINGER'S 1000ML 1,000 ML IV SCH
[2016-07-25] MEDS ORDERED: FENTANYL CITRATE INJ 50 MCG/1 ML 2 ML VIAL ONE (08:10)
--- NOTE | 2016-07-25 08:27 | History & Physical Bridge Note ---
H&P Re-Evaluation Bridge Note: I have examined the patient, reviewed the History & Physical and in the interval since the performance of the History & Physical I have noted the following changes of clinical significance: No changes noted
[2016-07-25] MEDS ORDERED: CEFAZOLIN SOD 1 GM VIAL ONE (09:10)
[2016-07-25] MEDS ORDERED: ETOMIDATE 2 MG/ML 20 ML VIAL IV ONE (10:00)
[2016-07-25] MEDS ORDERED: ATROPINE SULFATE 0.1 MG/ML 5ML SYR IV PRN (10:00)
[2016-07-25] MEDS ORDERED: ROCURONIUM BROMIDE 10 MG/ML 5 ML VIAL ONE (10:00)
[2016-07-25] MEDS ORDERED: HYDROCORTISONE SOD SUCCINATE 100 MG/2 ML VIAL ONE (10:00)
[2016-07-25] MEDS ORDERED: KETOROLAC TROMETHAMINE 30 MG/ML VIAL IV. PRN (10:00)
[2016-07-25] MEDS ORDERED: PROPOFOL IV EMULSION 10 MG/ML 20 ML VIAL IV ONE (10:00)
[2016-07-25] MEDS ORDERED: ONDANSETRON INJ 2 MG/ML 2 ML VIAL ONE (10:00)
[2016-07-25] MEDS ORDERED: NEOSTIGMINE METHYLSULFATE 5 MG/5 ML SYR ONE (10:00)
[2016-07-25] MEDS ORDERED: GLYCOPYRROLATE INJ 0.2 MG/ML VIAL ONE (10:00)
[2016-07-25] MEDS ORDERED: PROMETHAZINE HCL INJ 6.25 MG in SODIUM CHLORIDE 0.9% 50ML 50 ML IV PRN (10:00)
[2016-07-25] MEDS ORDERED: EpHEDrine SULFATE 50MG/5ML SYR ONE (10:00)
[2016-07-25] MEDS ORDERED: ONDANSETRON INJ 2 MG/ML 2 ML VIAL IV PRN ×2 (10:00→10:30)
[2016-07-25] MEDS ORDERED: DEXAMETHASONE SOD INJ 4 MG/ML VIAL ONE (10:00)
[2016-07-25] MEDS ORDERED: LABETALOL HCL IV 5 MG/ML 20ML IV PRN (10:00)
[2016-07-25] MEDS ORDERED: MoRPHine SULFATE 2 MG/ML CARP IV PRN (10:30)
[2016-07-25] MEDS ORDERED: OXYCODONE/ACETAMINOPHEN 5-325 TAB PO PRN (10:30)
[2016-07-25] MEDS: HYDROmorphone INJ 2 MG/ML SYR/VIAL IV PRN ×4 (10:45→11:00)
[2016-07-25] MEDS ORDERED: MIX: 266 MG EXPAREL + 40 ML INJ SALINE INJ ONE (10:54)
--- NOTE | 2016-07-25 11:18 | DIAGNOSTIC IMAGING REPORT ---
CHEST ONE VIEW PORTABLE HISTORY: pericardial window COMPARISON: Chest 09/21/2015. FINDINGS: Surgical clips within the left axilla. No pneumothorax. The heart remains moderately enlarged. Bilateral midlung zone densities. There is also patchy density left lung base. There may be trace bilateral pleural effusions. Low lung findings. Mild pulmonary vascular congestion without overt edema. IMPRESSION: 1. Stable cardiomegaly. 2. Mild pulmonary vascular congestion without overt edema. 3. Suspect trace bilateral pleural effusions. 4. Linear bilateral midlung zone densities. This favors atelectasis. There is also a patchy density at the left lung base which could represent atelectasis or pneumonia. Electronically signed by: Reynold Winn M.D. 07/25/2016 11:16 AM Dictated Date/Time: 07/25/2016 11:15 AM
--- NOTE | 2016-07-25 11:21 | Anesthesiology Progress Note ---
Anesthesia Post Op Note Date & Time Jul 25, 2016 at 11:20 Vital Signs Pain Intensity: 2 Vital Signs Past 12 Hours Date Time Temp Pulse Resp B/P Pulse Ox O2 Delivery O2 Flow Rate FiO2 07/25/16 11:10 57 16 136/63 92 Nasal Cannula 4 07/25/16 11:00 59 16 141/60 98 Nasal Cannula 4 07/25/16 10:50 59 16 161/67 98 Mask 10 07/25/16 10:40 62 16 194/80 99 Mask 10 07/25/16 10:31 36.2 62 16 224/86 100 Mask 10 07/25/16 07:35 36.7 75 18 171/89 92 Room Air Notes Mental Status: alert / awake / arousable, participated in evaluation Pt Amnestic to Procedure: Yes Nausea / Vomiting: adequately controlled Pain: adequately controlled Airway Patency, RR, SpO2: stable & adequate BP & HR: stable & adequate Hydration State: stable & adequate Anesthetic Complications: no major complications apparent
[2016-07-25] MEDS: ACETAMINOPHEN IV 1,000 MG in EMPTY BAG 0 ML IV SCH ×2 (14:01→21:41)
[2016-07-25] MEDS: D5W AND 1/2NSS 1,000 ML IV SCH ×2 (14:04→21:11)
[2016-07-25] MEDS: METOCLOPRAMIDE HCL INJ 5 MG/ML 2 ML VIAL IV. SCH ×2 (14:04→21:45)
[2016-07-25] MEDS: KETOROLAC TROMETHAMINE 15 MG/ML VIAL IV. SCH ×2 (14:05→21:46)
[2016-07-25] MEDS: CEFAZOLIN IV 2,000 MG in DEXTROSE 5% 50ML 100 ML IV SCH (19:03)
[2016-07-25] MEDS: CEFAZOLIN IV 2,000 MG in DEXTROSE 5% 50ML 50 ML IV SCH (19:19)
[2016-07-25] MEDS: RANITIDINE HCL 150 MG TAB PO SCH (21:13)
[2016-07-25] MEDS: DOCUSATE SODIUM 100 MG CAP PO SCH (21:13)
[2016-07-25] MEDS ORDERED: NURSING VERBAL MED ORDER ONE (21:30)
[2016-07-25] MEDS: TRAMADOL HCL 50 MG TAB PO PRN (21:35)
--- NOTE | 2016-07-25 23:44 | OPERATIVE REPORT ---
DATE OF OPERATION: 07/25/2016 PREOPERATIVE DIAGNOSES: 1. A pericardial effusion. 2. Widely metastatic breast cancer. POSTOPERATIVE DIAGNOSIS: Same. PROCEDURE: Thoracoscopic pericardial window. SURGEON: Dr. Tena. RESIN REMOVER: CINTIA Mcdaniels. ANESTHESIA: General anesthesia with single-lumen tube. SPECIFICS OF PROCEDURE: This is a delightful 76-year-old female I met last week. She has had evidence of widely metastatic breast cancer and I was asked to evaluate her for a pericardial effusion. It appeared to be exhibiting some signs of collapse. After a long discussion, we elected to discharge the patient over the weekend, I brought her back this morning. On 07/25/2016, the patient underwent an uncomplicated thoracoscopic pericardial window. The pericardium was glistening. We did two 5-mm ports and a 10-mm port and easily made a large window. She also had a pleural effusion. We drained both of these and sent both off for evaluation. I did an Exparel block and left the PleurX catheter in place. She tolerated it well. PROCEDURE: The patient was brought to the operating room and laid in supine position. General anesthesia induced and endotracheal intubation was performed. We did not place a Montes catheter, a double-lumen tube or an arterial line. The patient was placed in the left lateral decubitus position. Right chest prepped and draped in usual sterile fashion. We gently ventilated her by hand and I made a small 5-mm incision at the interspace below the tip of the scapula. A 5-mm scope was placed in the trocar. We could see there were no adhesions. There was some fluid. I then placed a 10-mm trocar at about the 7th interspace anteriorly. I then used a sucker tip through this to drain the pleural fluid, which was probably about 400 or 500 mL The pericardium could be seen; however, the lung was overlying this. I placed one more 5-mm incision at the interspace below these 2 original ports and midway between them to triangulate it and then, put a cotton-tipped Kitner in to pull the lung back. I was then able to see the pericardium quite nicely. A hook cautery was placed in the anterior port and I opened the pericardium. About 500 mL of fluid was suctioned out and sent for analysis. I then used a Harmonic scalpel to make a pericardiotomy, about 10 cm in length. I then switched out my Kitner for a grasper and grasped the pericardium and cut about a 5-cm wide strip of pericardium off with some pericardial fat with the Harmonic scalpel. We got into no bleeding with this at all. This was then removed from the field via the 10-mm port. There was no significant bleeding. 266 mg of Exparel were mixed with 40 mL of normal saline to make 60 mL total fluid. I then injected 5 mL above each interspace from the 2nd to the 11th rib spaces. A PleurX catheter was then placed through one of the 5-mm ports and laid along the diaphragm. This was sutured in place with heavy silk suture. A single 0 Vicryl was used to close the 10-mm port. 3-0 Vicryl was used in a running subcuticular fashion to approximate the wound edges. She tolerated it quite well. She was extubated in the room. I attest to the content of the Intraoperative Record and any orders documented therein. Any exceptio ns are noted below.
[2016-07-26] VITALS (11 sets, daily range): BP systolic 119–164; BP diastolic 61–79; PULSE 63–75; TEMP 36.4–36.9; O2SAT 89–96
[2016-07-26] MEDS ORDERED: ZOLPIDEM TARTRATE 5 MG TAB PO PRN (00:30)
[2016-07-26] MEDS: CEFAZOLIN IV 2,000 MG in DEXTROSE 5% 50ML 100 ML IV SCH (02:28)
[2016-07-26] MEDS: CEFAZOLIN IV 2,000 MG in DEXTROSE 5% 50ML 50 ML IV SCH (02:29)
[2016-07-26] MEDS: METOCLOPRAMIDE HCL INJ 5 MG/ML 2 ML VIAL IV. SCH (06:08)
[2016-07-26] MEDS: ACETAMINOPHEN IV 1,000 MG in EMPTY BAG 0 ML IV SCH ×3 (06:08→21:48)
[2016-07-26] MEDS: KETOROLAC TROMETHAMINE 15 MG/ML VIAL IV. SCH ×3 (06:08→21:48)
[2016-07-26] MEDS: D5W AND 1/2NSS 1,000 ML IV SCH (06:18)
--- NOTE | 2016-07-26 07:27 | DIAGNOSTIC IMAGING REPORT ---
CHEST ONE VIEW PORTABLE HISTORY: Status post pericardial window COMPARISON: Chest 07/25/2016. FINDINGS: No pneumothorax. Surgical clips within the left axilla. Bilateral midlung zone densities remain unchanged. Patchy airspace opacities within the left lung base persist. Increasing patchy airspace opacities within the right lung base. The heart remains mildly enlarged. Suspect small bilateral pleural effusions. Mild pulmonary vascular congestion is again noted. IMPRESSION: 1. Bilateral midlung zone linear densities remain unchanged. 2. Right basilar patchy airspace opacity has progressed and the left basilar patchy airspace opacity persists. 3. Small bilateral pleural effusions and mild pulmonary vascular congestion. Electronically signed by: Reynold Winn M.D. 07/26/2016 7:25 AM Dictated Date/Time: 07/26/2016 7:24 AM
[2016-07-26] MEDS: DOCUSATE SODIUM 100 MG CAP PO SCH ×2 (08:59→21:09)
[2016-07-26] MEDS: CALCIUM 600MG + VIT D 400 IU TAB PO SCH (08:59)
[2016-07-26] MEDS: ENOXAPARIN 40 MG/0.4 ML SYR SQ SCH (09:00)
[2016-07-26] MEDS: RANITIDINE HCL 150 MG TAB PO SCH ×2 (09:00→21:09)
[2016-07-26] MEDS: MULTIVITAMIN TAB PO SCH (09:00)
[2016-07-26] MEDS: CHOLECALCIFEROL 1000 INTER.UNIT TAB PO SCH (09:00)
[2016-07-26] MEDS ORDERED: METHOTREXATE 2.5 MG TAB PO SCH (09:00)
[2016-07-26] MEDS: LISINOPRIL 40 MG TAB PO SCH (09:04)
--- NOTE | 2016-07-26 09:59 | Anesthesiology Progress Note ---
Anesthesia Post Op Note Date & Time Jul 26, 2016 at 09:58 Vital Signs Vital Signs Past 12 Hours Date Time Temp Pulse Resp B/P Pulse Ox O2 Delivery O2 Flow Rate FiO2 07/26/16 09:04 120/78 07/26/16 08:09 36.7 63 16 119/74 94 2.0 07/26/16 07:20 94 Nasal Cannula 2.0 07/26/16 06:50 94 Nasal Cannula 4.0 07/26/16 06:35 89 Room Air 07/26/16 03:30 36.4 69 16 164/61 96 Nasal Cannula 4.0 07/26/16 00:00 Nasal Cannula 4.0 07/25/16 23:10 36.7 68 18 111/67 92 Nasal Cannula 4.0 Notes Mental Status: alert / awake / arousable, participated in evaluation Pt Amnestic to Procedure: Yes Nausea / Vomiting: adequately controlled Pain: adequately controlled Airway Patency, RR, SpO2: stable & adequate BP & HR: stable & adequate Hydration State: stable & adequate Anesthetic Complications: no major complications apparent
[2016-07-26] MEDS: TRAMADOL HCL 50 MG TAB PO PRN (11:58)
--- NOTE | 2016-07-26 19:16 | SURGERY PROGRESS NOTE ---
DATE: 07/26/2016 I saw Ms. Caban today with her daughter. We have disconnected her PleurX catheter from the Yazmin and drained her today for about 100 mL of fluid. She had some reexpansion pain. Review of her x-ray shows she does have some fluid in the fissure, but she feels well and I think looks quite good. She is on room air 93% saturations. She has very little in the way of pain. She has walked in the hallway. I am probably going to let her go home tomorrow. I am really quite happy with her. I do want to check a chest x-ray before she leaves in the a.m. to make sure we have not run into a problem with her collecting fluid. ISIDRA
[2016-07-27 00:21] VITALS: O2SAT 93
[2016-07-27] MEDS: TRAMADOL HCL 50 MG TAB PO PRN (02:47)
[2016-07-27] MEDS: KETOROLAC TROMETHAMINE 15 MG/ML VIAL IV. SCH (05:49)
[2016-07-27] MEDS: ACETAMINOPHEN IV 1,000 MG in EMPTY BAG 0 ML IV SCH (05:49)
[2016-07-27 07:17] VITALS: BP 153/81; PULSE 68; TEMP 36.7; O2SAT 95
[2016-07-27 07:20] VITALS: O2SAT 95
[2016-07-27] MEDS: DOCUSATE SODIUM 100 MG CAP PO SCH (08:40)
[2016-07-27] MEDS: CALCIUM 600MG + VIT D 400 IU TAB PO SCH (08:41)
[2016-07-27] MEDS: RANITIDINE HCL 150 MG TAB PO SCH (08:41)
[2016-07-27] MEDS: MULTIVITAMIN TAB PO SCH (08:42)
[2016-07-27] MEDS: CHOLECALCIFEROL 1000 INTER.UNIT TAB PO SCH (08:42)
[2016-07-27] MEDS: LISINOPRIL 40 MG TAB PO SCH (08:46)
[2016-07-27] MEDS: ENOXAPARIN 40 MG/0.4 ML SYR SQ SCH (08:47)
[2016-07-27] MEDS ORDERED: LIDOCAINE HCL 1% 20 ML VIAL ONE (12:32)
[2016-07-27] MEDS ORDERED: XYLOCAINE 1%/SOD BICARB 20 ML VIAL INFIL ONE (12:45)
[2016-07-27] MEDS ORDERED: TRAM-10 PO (12:51)
--- NOTE | 2016-07-27 12:54 | Discharge Instructions ---
Discharge Instructions Admission Reason for Admission: Pericardial Effusion Discharge Discharge Diagnosis / Problem: Pericardial Effusion Discharge Goals Goal(s): Improve function, Learn about illness Activity Recommendations Activity Limitations: resume your previous activity (in 24 hours) Lifting Limitations: none 1. Do not shower until seen by Dr. Tena. . Instructions / Follow-Up Instructions / Follow-Up 1. 1-[address] Tena. Office will call you with date and time of appointment. You will need a chest x-ray prior to appointment. 2. Visiting nurses will assist you with pleurex drainage and dressing changes. 3. If you notice drainage from incision, you may re-dress it with gauze. Current Hospital Diet Patient's current hospital diet: Regular Diet Discharge Diet Recommended Diet: Regular Diet Procedures Procedures Performed: Right thoracoscopy; pericardial window Pending Studies Studies pending at discharge: no Medical Emergencies . Who to Call and When: Medical Emergencies: If at any time you feel your situation is an emergency, please call 911 immediately. . Non-Emergent Contact Non-Emergency issues call your: Surgeon Call Non-Emergent contact if: you have a fever, your pain is not controlled, wound has increased drainage . "Provider Documentation" section prepared by Karl Crain. VTE Core Measure Inpt VTE Proph given/why not?: Enoxaparin (Lovenox)SQ
[2016-07-27 13:12] VITALS: BP 153/81; PULSE 68; TEMP 36.7; O2SAT 95
--- NOTE | 2016-07-27 15:10 | DISCHARGE SUMMARY ---
DISCHARGE DIAGNOSES: 1. Widely metastatic breast cancer. 2. 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 3. 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 PROCEDURE: Right thoracoscopy with pericardial window. HOSPITAL COURSE: This is a very nice 76-year-old female who had a history of breast cancer several years ago underwent a mastectomy on the left side, who was found to have widely metastatic breast cancer to bone. She also had a right pleural effusion which was small but more importantly she had a fairly significant pericardial effusion. We had a long talk about this and felt that a pericardial window should be offered. On 07/25/2016, the patient underwent uncomplicated right thoracoscopy with pericardial window. Pericardium was glistening. She had a small left pleural effusion. She had about 300 mL of pleural fluid and about 500 mL of pericardial fluid. Unfortunately, both of these are metastatic. There was no studding of the pericardium or pleura. The patient tolerated it well, in fact I had considered sending her home on postop day 1 as we watched on the floor and I only placed a PleurX catheter; however, she was a bit uncomfortable with this and had some drainage around her tube. The following day she looked much better. We drained her PleurX and really we did not get very much fluid, this morning only about 10 mL. However, she was draining around it. After draining 480 mL on the first postoperative night. I placed another suture to tighten up the entrance site of the PleurX catheter. She had no evidence of pneumothorax. Quite frankly, I was happy with her despite her terrible prognosis and disease. I will see her back in the office in 1 week to assess her PleurX catheter with a chest x-ray. ISIDRA
[2016-08-10] MEDS ORDERED: PRD/1 PO (16:01)
[2016-08-23] MEDS ORDERED: TRIATAB3 PO (12:13)
== END 2016-07-27 14:24 | disposition home health service (06) | DRG 315 ==
LOC: ENRESERVDT → ENRESERVTM → C.ACU 06:54 → C.MSN 08:25
PROVIDERS: ADMIT Surgery; ATTEND Surgery
PROC: 0W9D40Z Drainage of Pericardial Cavity with Drainage Device, Percutaneous Endoscopic Approach (ICD-10-PCS; principal; 2016-07-25 08:45)
DX: I31.3 Pericardial effusion (noninflammatory) (principal); N25.81 Secondary hyperparathyroidism of renal origin; J90 Pleural effusion, not elsewhere classified; C79.81 Secondary malignant neoplasm of breast; I10 Essential (primary) hypertension; M85.80 Other specified disorders of bone density and structure, unspecified site; K21.9 Gastro-esophageal reflux disease without esophagitis

== ENCOUNTER → 2016-07-29 | Outpatient (CLI) | payer BC ==
[~2016-07-29] MED LIST changes: +CALC-388 PO; +CRD200 PO; +CTP/1 PO; +DOCU-94 PO; -LACTATED RINGER'S 1000ML 1,000 ML IV SCH; +METO25TA3 PO; +ONDA8TAB6 PO; +PRD/1 PO; +PROC1TAB5 PO; +TRAM-10 PO; +TRIATAB3 PO; +XRL20 PO
--- NOTE | 2016-07-29 10:59 | DIAGNOSTIC IMAGING REPORT ---
CHEST 2 VIEWS ROUTINE CLINICAL HISTORY: Pericardial effusion. Right pleural effusion. Note that breast cancer. Status post pericardial window. COMPARISON STUDY: PET/CT July 18, 2016 and chest radiograph July 26, 2016. FINDINGS: Left axillary surgical clips are noted. There is no pneumothorax. Lateral view demonstrates a possible pericardial effusion which is suboptimally assessed on this exam. Linear midlung opacities likely reflect atelectasis with possible right-sided fissural fluid. Small bilateral pleural effusions are noted. IMPRESSION: 1. Small bilateral pleural effusions. 2. Possible pericardial effusion shown on lateral projection. 3. No evidence of pulmonary edema. Electronically signed by: Raphael Johnson M.D. 07/29/2016 10:57 AM Dictated Date/Time: 07/29/2016 10:52 AM
== END | disposition home or self-care (01) ==
LOC: C.RAD 09:27
PROVIDERS: ATTEND Surgery
DX: I31.3 Pericardial effusion (noninflammatory) (principal)

== ENCOUNTER → 2016-08-04 | Outpatient (CLI) | payer BC ==
--- NOTE | 2016-08-04 14:43 | DIAGNOSTIC IMAGING REPORT ---
CHEST 2 VIEWS ROUTINE CLINICAL HISTORY: I31.3 pleural effusion COMPARISON STUDY: 07/29/2016 FINDINGS: Unchanging small bilateral pleural effusions. Unchanging bibasilar atelectatic change. Thickening of the major fissures the mid pulmonary lines. Postoperative changes left axilla. Upper lungs are clear. Postoperative changes left axilla consistent with axonal no dissection. IMPRESSION: Stable evaluation of the chest with unchanging small bilateral pleural effusions and mid lung atelectatic change Electronically signed by: Rios Love M.D. 08/04/2016 2:42 PM Dictated Date/Time: 08/04/2016 2:37 PM
== END | disposition home or self-care (01) ==
LOC: C.RAD 13:59
PROVIDERS: ATTEND Surgery
DX: I31.3 Pericardial effusion (noninflammatory) (principal)

== ENCOUNTER 2016-08-20 16:43 | Emergency (ER) | payer BC ==
[~2016-08-20] VITALS: Ht 162.6 cm; Wt 96.0 kg
[~2016-08-20 16:43] MED LIST changes: -CALC-388 PO; -CRD200 PO; -CTP/1 PO; -DOCU-94 PO; -METO25TA3 PO; -ONDA8TAB6 PO; -PRED-301 PO; -PROC1TAB5 PO; -TRIATAB3 PO; -XRL20 PO
[2016-08-20 16:49] VITALS: TEMP 36.7; O2SAT 96
[2016-08-20] MEDS ORDERED: SODIUM CHLORIDE 0.9% 1000ML 500 ML IV ONE (17:17)
[2016-08-20 17:25] LABS: BASO % 0.4 %; BASO ABS # 0.02 K/uL (0-0.2); COMPLETE YES; EOS % 0.4 %; LYMPH % 34.5 %; LYMPH ABS # 1.72 K/uL (1.2-3.4); MEAN CELL VOLUME 96.4 fL (80-100); MEAN CORPUSCULAR HGB CONC 33.3 g/dl (32-36); MEAN PLATELET VOLUME 10.8 fL (7.4-10.4); MONO % 0.8 %; NEUT % 63.9 %; PLATELET COUNT 208 K/uL (130-400); RED BLOOD COUNT 4.15 M/uL (4.2-5.4); WHITE BLOOD COUNT 4.99 K/uL (4.8-10.8)
[2016-08-20 17:28] VITALS: Ht 162.6 cm; Wt 96.0 kg
[2016-08-20 17:34] LABS: PARTIAL THROMBOPLASTIN RATIO 1.1; PROTHROMBIN TIME (PATIENT) 10.6 SECONDS (9.0-12.0)
--- NOTE | 2016-08-20 17:35 | EMERGENCY ROOM VISIT NOTE ---
History Report prepared by Rajivibkevin: Tomeka Mcmahon Under the Supervision of: Dr. Robi Gordillo M.D. First contact with patient: 17:05 Chief Complaint: SYNCOPE (NEAR SYNCOPE) Stated Complaint: SYNCOPE Nursing Triage Summary: Pt to ED via ALS. 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 Pt states "I feel wobbly. I just don't feel right." Sitting on couch and found self laying on left side. Denies fully passing out or hitting head. Hx breast cancer with recent reoccurance. Pleurex placed left side of rib cage "because the cancer cells are in the fluid." Dressing D/I. Home health drains fluid every other day and was drained today. Pt just started chemo last Monday. Hx lymphodema. History of Present Illness The patient is a 76 year old female who presents to the Emergency Room via ALS with complaints of a near syncopal episode occurring today. She was sitting on her couch when she felt lightheaded. She denies losing consciousness or hitting her head. She also complains of a cough. She currently denies any pain. The patient also denies fevers, chills, abdominal pain, or any other complaints. She was recently diagnosed with recurrent breast cancer. Her last chemotherapy session was 5 days ago. She also recently had a Pleurx placed in the left side of her chest. She had fluid drained today. She normally has fluid drained every other day. She has a history of pericardial effusion. She had an echocardiogram 4 days ago. The patient is on lisinopril. Source of History: patient Onset: today Position: other (global) Symptom Intensity: No pain Quality: other (near syncope) Associated Symptoms: No abdominal pain, No chills, No fevers Review of Systems See HPI for pertinent positives & negatives. A total of 10 systems reviewed and were otherwise negative. Past Medical & Surgical Medical Problems: (1) Ankylosing spondylitis (2) Breast cancer (3) Gastroesophageal reflux disease (4) Hyperparathyroidism (5) Hypertension (6) Osteopenia (7) Pericardial effusion Surgical Problems: (1) H/O mastectomy Family History Patient reports no known family medical history. Social History Smoking Status: Former Smoker Marital Status: Occupation Status: retired Current/Historical Medications Scheduled Calcium/Vitamin D (Os-Jag 500 Plus D), 1 TAB PO QAM Cholecalciferol (Vitamin D), 1,000 INTER.UNIT PO QAM Folic Acid (Folvite), 1 MG PO QAM Lisinopril (Zestril), 1 TAB PO QAM Methotrexate (Methotrexate), 2.5 MG PO Monday Metoprolol Succinate (Toprol Xl), 1 TAB PO DAILY Multivitamin (Multivitamin), 1 TAB PO QAM Prednisone (Prednisone), 4 TAB PO QAM Ranitidine (Zantac), 150 MG PO QAM Scheduled PRN Tramadol (Ultram), 50 MG PO Q4H PRN for Pain Allergies Coded Allergies: Diphenhydramine (Verified Adverse Reaction, Mild, POOR TOLERANCE OF BENADRYL IV, 08/20/16) POOR TOLERANCE OF BENADRYL Physical Exam Vital Signs Date Time Temp Pulse Resp B/P Pulse Ox O2 Delivery O2 Flow Rate FiO2 08/20/16 20:56 79 16 175/99 99 08/20/16 18:55 77 18 193/118 96 Room Air 08/20/16 17:50 75 08/20/16 16:49 36.7 79 18 193/77 94 Room Air 08/20/16 16:49 96 Room Air Physical Exam GENERAL: Patient is a healthy-appearing well-nourished HEAD: Normocephalic atraumatic EYES: Ocular movements intact pupils equal and react to light OROPHARYNX mucous membranes are moist no exudates present no erythema or edema present NECK: Supple no nuchal rigidity CHEST: Good equal expansion LUNGS: Clear and equal to auscultation CARDIAC: Normal S1 and S2 ABDOMEN: Soft nontender no guarding BACK: No CVA tenderness EXTREMITIES: No pain upon palpation normal muscle strength in all groups no clubbing cyanosis or edema NEURO: Patient is following commands is answering questions appropriately. Alert and oriented x3 Cranial Nerves 2-12 grossly intact Medical Decision & Procedures ER Provider Diagnostic Interpretation: X-ray results as stated below per my interpretation and radiologist interpretation. CT results as stated below per my review and radiologist interpretation: CHEST ONE VIEW PORTABLE HISTORY: Sepsis COMPARISON: Chest 08/04/2016. FINDINGS: No change in the right greater than left midlung zone linear densities and small bilateral pleural effusions. The heart remains mildly enlarged. Surgical clips within the left axilla. No pneumothorax. Bibasilar linear densities are also unchanged. These favor subsegmental atelectasis are scarring. No evidence for pulmonary edema. IMPRESSION: Overall, no significant change compared to the prior study. Small bilateral pleural effusions and bibasilar linear densities persist. Electronically signed by: Reynold Winn M.D. 08/20/2016 5:48 PM Dictated Date/Time: 08/20/2016 5:[address] CT DOSE: 623.48 mGy.cm HISTORY: Altered mental status. TECHNIQUE: Multiaxial CT images of the head were performed without the use of intravenous contrast. Automated exposure control was utilized for this study. Comparison: Head CT 03/28/2005. PET CT 07/18/2016. Findings: The paranasal sinuses and mastoid air cells are clear. There are 2 adjacent lytic left parietal bone lesions within largest measuring 2 cm consistent with metastatic foci. These remain unchanged. Mild motion artifact. No definite mass, hematoma, midline shift, acute infarct. Patchy. White matter hypodensity is nonspecific but favors microvascular ischemic change. Impression: No acute intracranial abnormality. Metastatic calvarial lesions are again noted. Electronically signed by: Reynold Winn M.D. 08/20/2016 6:44 PM Dictated Date/Time: 08/20/2016 6:37 PM Laboratory Results 08/20/16 17:00 Red Blood Count 4.15, Mean Corpuscular Volume 96.4, Mean Corpuscular Hemoglobin 32.0, Mean Corpuscular Hemoglobin Concent 33.3, Mean Platelet Volume 10.8, Neutrophils (%) (Auto) 63.9, Lymphocytes (%) (Auto) 34.5, Monocytes (%) (Auto) 0.8, Eosinophils (%) (Auto) 0.4, Basophils (%) (Auto) 0.4, Neutrophils # (Auto) 3.19, Lymphocytes # (Auto) 1.72, Monocytes # (Auto) 0.04, Eosinophils # (Auto) 0.02, Basophils # (Auto) 0.02 08/20/16 17:00 Test 08/20/16 17:00 08/20/16 17:40 08/20/16 18:07 White Blood Count 4.99 K/uL (4.8-10.8) Red Blood Count 4.15 M/uL (4.2-5.4) Hemoglobin 13.3 g/dL (12.0-16.0) Hematocrit 40.0 % (37-47) Mean Corpuscular Volume 96.4 fL (80-100) Mean Corpuscular Hemoglobin 32.0 pg (25-34) Mean Corpuscular Hemoglobin Concent 33.3 g/dl (32-36) Platelet Count 208 K/uL (130-400) Mean Platelet Volume 10.8 fL (7.4-10.4) Neutrophils (%) (Auto) 63.9 % Lymphocytes (%) (Auto) 34.5 % Monocytes (%) (Auto) 0.8 % Eosinophils (%) (Auto) 0.4 % Basophils (%) (Auto) 0.4 % Neutrophils # (Auto) 3.19 K/uL (1.4-6.5) Lymphocytes # (Auto) 1.72 K/uL (1.2-3.4) Monocytes # (Auto) 0.04 K/uL (0.11-0.59) Eosinophils # (Auto) 0.02 K/uL (0-0.5) Basophils # (Auto) 0.02 K/uL (0-0.2) RDW Standard Deviation 47.7 fL (36.4-46.3) RDW Coefficient of Variation 13.5 % (11.5-14.5) Immature Granulocyte % (Auto) 0.0 % Immature Granulocyte # (Auto) 0.00 K/uL (0.00-0.02) Prothrombin Time 10.6 SECONDS (9.0-12.0) Prothromb Time International Ratio 1.0 (0.9-1.1) Activated Partial Thromboplast Time 27.5 SECONDS (21.0-31.0) Partial Thromboplastin Ratio 1.1 Anion Gap 8.0 mmol/L (3-11) Est Creatinine Clear Calc Drug Dose 48.2 ml/min Estimated GFR () 56.1 Estimated GFR (Non- 48.4 BUN/Creatinine Ratio 16.0 (10-20) Calcium Level 8.5 mg/dl (8.5-10.1) Total Bilirubin 0.4 mg/dl (0.2-1) Aspartate Amino Transf (AST/SGOT) 38 U/L (15-37) Alanine Aminotransferase (ALT/SGPT) 54 U/L (12-78) Alkaline Phosphatase 138 U/L (45-117) Total Creatine Kinase 58 U/L (26-192) Creatine Kinase MB 1.7 ng/ml (0.5-3.6) Creatine Kinase MB Ratio 2.9 (0-3.0) Troponin I 0.027 ng/ml (0-0.045) Total Protein 7.2 gm/dl (6.4-8.2) Albumin 3.3 gm/dl (3.4-5.0) Globulin 3.9 gm/dl (2.5-4.0) Albumin/Globulin Ratio 0.8 (0.9-2) Urine Color YELLOW Urine Appearance CLEAR (CLEAR) Urine pH 6.5 (4.5-7.5) Urine Specific [place] 1.003 (1.000-1.030) Urine Protein NEG (NEG) Urine Glucose (UA) NEG (NEG) Urine Ketones NEG (NEG) Urine Occult Blood NEG (NEG) Urine Nitrite NEG (NEG) Urine Bilirubin NEG (NEG) Urine Urobilinogen NEG (NEG) Urine Leukocyte Esterase NEG (NEG) Urine WBC (Auto) 1-5 /hpf (0-5) Urine RBC (Auto) 0-4 /hpf (0-4) Urine Hyaline Casts (Auto) 1-5 /lpf (0-5) Urine Epithelial Cells (Auto) >30 /lpf (0-5) Urine Bacteria (Auto) NEG (NEG) Bedside Lactic Acid Venous 1.01 mmol/L (0.90-1.70) Labs reviewed by ED physician. Medications Administered Medications (Trade) Dose Ordered Sig/Mau Route Start Time Stop Time Status Last Admin Dose Admin Sodium Chloride (Nss 1000ml) 500 ml @ 999 mls/hr Q31M ONCE IV 08/20/16 17:17 08/20/16 17:47 DC 08/20/16 18:16 999 MLS/HR Metoprolol Tartrate (Lopressor Tab) 25 mg NOW STAT PO 08/20/16 19:50 08/20/16 19:51 DC 08/20/16 20:39 25 MG Procedure Bed pericardial view which did not show any evidence of free fluid. ECG Indication: syncope (near) Rate (beats per minute): 80 Rhythm: sinus rhythm Findings: 1st degree AV block, no acute ischemic change, no ectopy, other (no electrical alternans present) ED Course 1704: Past medical records reviewed. The patient was evaluated in room B10. A complete history and physical examination was performed. 1716: Sodium Chloride 500 ml @ 999 mls/hr IV 1949: Lopressor Tab 25 mg PO 2044: Upon reexamination the patient is resting comfortably. I discussed results and treatment plan with the patient. She verbalizes agreement and understanding. The patient is ready for discharge. Medical Decision Differential diagnosis: Etiologies such as metabolic, infection, hypo/hyperglycemia, electrolyte abnormalities, cardiac sources, intracerebral event, toxicologic, neurologic, as well as others were entertained. This is a 76-year-old female who presents emergency department complaining of near syncopal episode at home. The patient recently restarted chemotherapy. Based on this finding along with the patient's hypertension IV was established, patient given a bolus. She has a normal CBC normal renal profile normal liver profile. CAT scan of the head is concerning for what appears to be to the bones of the skull. I offered the patient admission to the hospital however she is requesting ago home. For this reason I will trial the patient on a beta gianna with close follow-up with cardiology on Monday. The patient will return for symptoms worsen. Patient was in agreement with the treatment plan. Impression Primary Impression: Near syncope Additional Impression: Hypertension Scribe Attestation The scribe's documentation has been prepared under my direction and personally reviewed by me in its entirety. I confirm that the note above accurately reflects all work, treatment, procedures, and medical decision making performed by me. Departure Information Dispostion Home / Self-Care Prescriptions Metoprolol Succinate (TOPROL XL) 25 Mg Tabcr 1 TAB PO DAILY for 10 Days, #10 TAB Prov: Robi Gordillo MD 08/20/16 Referrals Ernesto Becker M.D. (PCP) Rubio Jackson M.D. Forms HOME CARE DOCUMENTATION FORM, IMPORTANT VISIT INFORMATION Patient Instructions ED Hypertension Poss, ED Near Syncope Unkn, Hypertension Control, My [facility] Additional Instructions You have been examined and treated today on an emergency basis only. This is not a substitute for, or an effort to provide, complete comprehensive medical care. It is impossible to recognize and treat all injuries or illnesses in a single emergency department visit. It is therefore important that you follow up closely with Dr Pro. Call as soon as possible for an appointment. Thank you for your time and consideration. I look forward to speaking with you again soon. Please don't hesitate to call us if you have any questions. Problem Qualifiers Additional Impression: Hypertension Hypertension type: essential hypertension Qualified Codes: I10 - Essential ( primary) hypertension
[2016-08-20 17:37] LABS: CALCIUM 8.5 mg/dl (8.5-10.1); CREATININE 1.1 mg/dl (0.60-1.20)
[2016-08-20 17:42] LABS: ALB/GLOB RATIO 0.8 (0.9-2); CKMB/CK RATIO 2.9 (0-3.0)
--- NOTE | 2016-08-20 17:49 | DIAGNOSTIC IMAGING REPORT ---
CHEST ONE VIEW PORTABLE HISTORY: Sepsis COMPARISON: Chest 08/04/2016. FINDINGS: No change in the right greater than left midlung zone linear densities and small bilateral pleural effusions. The heart remains mildly enlarged. Surgical clips within the left axilla. No pneumothorax. Bibasilar linear densities are also unchanged. These favor subsegmental atelectasis are scarring. No evidence for pulmonary edema. IMPRESSION: Overall, no significant change compared to the prior study. Small bilateral pleural effusions and bibasilar linear densities persist. Electronically signed by: Reynold Winn M.D. 08/20/2016 5:48 PM Dictated Date/Time: 08/20/2016 5:47 PM
[2016-08-20 18:20] LABS: URINE APPEARANCE CLEAR (CLEAR); URINE BILIRUBIN NEG (NEG); URINE COLOR YELLOW; URINE EPITHELIAL CELL AUTO >30 /lpf (0-5); URINE NITRITE NEG (NEG); URINE PH 6.5 (4.5-7.5); URINE SPECIFIC GRAVITY 1.003 (1.000-1.030); UROBILINOGEN NEG (NEG); ZZUR CULT IF INDIC CLEAN CATCH NO
[2016-08-20 18:21] LABS: MANUAL MICROSCOPIC REQUIRED? NO; REVIEW REQ? YES
--- NOTE | 2016-08-20 18:45 | DIAGNOSTIC IMAGING REPORT ---
HEAD CT NONCONTRAST CT DOSE: 623.48 mGy.cm HISTORY: Altered mental status. TECHNIQUE: Multiaxial CT images of the head were performed without the use of intravenous contrast. Automated exposure control was utilized for this study. Comparison: Head CT 03/28/2005. PET CT 07/18/2016. Findings: The paranasal sinuses and mastoid air cells are clear. There are 2 adjacent lytic left parietal bone lesions within largest measuring 2 cm consistent with metastatic foci. These remain unchanged. Mild motion artifact. No definite mass, hematoma, midline shift, acute infarct. Patchy. White matter hypodensity is nonspecific but favors microvascular ischemic change. Impression: No acute intracranial abnormality. Metastatic calvarial lesions are again noted. Electronically signed by: Reynold Winn M.D. 08/20/2016 6:44 PM Dictated Date/Time: 08/20/2016 6:37 PM
[2016-08-20] MEDS ORDERED: METOPROLOL TARTRATE 25 MG TAB PO STA (19:50)
[2016-08-20] MEDS ORDERED: METO25TA3 PO (19:53)
[2016-08-20 20:56] VITALS: BP 175/99; PULSE 79; O2SAT 99
[2016-08-23] MEDS ORDERED: TRIATAB3 PO (12:13)
== END 2016-08-20 20:59 | disposition home or self-care (01) ==
LOC: EDBD 16:43 → C.EDB 16:46
DX: R55 Syncope and collapse (principal); I10 Essential (primary) hypertension; E21.3 Hyperparathyroidism, unspecified; K21.9 Gastro-esophageal reflux disease without esophagitis; Z85.3 Personal history of malignant neoplasm of breast; Z90.10 Acquired absence of unspecified breast and nipple; Z87.891 Personal history of nicotine dependence

== ENCOUNTER 2016-08-24 07:03 | Day surgery (SDC) | payer BC ==
[2016-08-10 16:01] VITALS: BMI 35.0
[~2016-08-24] VITALS: Ht 165.1 cm; Wt 93.5 kg
--- NOTE | 2016-08-24 06:30 | History and Physical ---
History & Physical Date Aug 24, 2016. History of Present Illness The patient is a 76 year old female with recurrent metastatic breast cancer in need of chemotherapy for access port placement h/o Rt pleural effusion, and pericardial effusion (malignant)- s/p drainage Past Medical/Surgical History Medical Problems: (1) Ankylosing spondylitis (2) Breast cancer (3) Gastroesophageal reflux disease (4) Hyperparathyroidism (5) Hypertension (6) Osteopenia (7) Pericardial effusion Surgical Problems: (1) H/O mastectomy Additional History Endocrine Disorder: No Kidney Disease: No Hypertension: Yes Heart Disease: No Allergies Coded Allergies: Diphenhydramine (Verified Adverse Reaction, Mild, POOR TOLERANCE OF BENADRYL IV, 08/24/16) POOR TOLERANCE OF BENADRYL Home Medications Scheduled Calcium/Vitamin D (Os-Jag 500 Plus D), 1 TAB PO QAM Cholecalciferol (Vitamin D), 1,000 INTER.UNIT PO QAM Folic Acid (Folvite), 1 MG PO QAM Lisinopril (Zestril), 1 TAB PO QAM Methotrexate (Methotrexate), 2.5 MG PO Monday Metoprolol Succinate (Toprol Xl), 1 TAB PO DAILY Multivitamin (Multivitamin), 1 TAB PO QAM Prednisone (Prednisone), 4 TAB PO QAM Ranitidine (Zantac), 150 MG PO QAM Triamterene/Hctz (Triamterene/Hctz 37.5-25MG), 1 TAB PO Q2D Scheduled PRN Ondansetron Hcl (Zofran), 8 MG PO Q8 PRN for Nausea Prochlorperazine Maleate (Compazine), 1 TAB PO Q6 PRN for Nausea or Vomiting Tramadol (Ultram), 50 MG PO Q4H PRN for Pain Physical Examination Skin: warm/dry Eyes: sclerae normal Head: normocephalic Neck: supple Cardiovascular: regular rate, rhythm Abdomen / GI: non tender Extremities: normal inspection Neurologic/Psych: alert Diagnosis metastatic breast cancer Plan of Treatment for access port
[~2016-08-24 07:03] MED LIST changes: +CEFAZOLIN 2000 MG/60 ML D5W IV SCH; +LACTATED RINGER'S 1000ML 1,000 ML IV SCH; +METO25TA3 PO; +TRIATAB3 PO
[2016-08-24] MEDS ORDERED: FENTANYL CITRATE INJ 50 MCG/1 ML 2 ML VIAL ONE (07:19)
[2016-08-24] MEDS ORDERED: PROPOFOL IV EMULSION 10 MG/ML 20 ML VIAL IV ONE (07:19)
[2016-08-24] MEDS ORDERED: LIDOCAINE HCL 2% 2 ML VIAL (20MG/ML) ONE (07:19)
[2016-08-24] MEDS ORDERED: MIDAZOLAM HCL 1 MG/ML 2ML VIAL ONE (07:20)
[2016-08-24] MEDS ORDERED: ONDA8TAB6 PO (07:32)
[2016-08-24] MEDS ORDERED: PROC1TAB5 PO (07:32)
[2016-08-24 07:36] VITALS: BP 150/76; PULSE 86; TEMP 37.1; O2SAT 92; Ht 165.1 cm; Wt 93.5 kg
[2016-08-24] MEDS ORDERED: NURSING VERBAL MED ORDER ONE (08:00)
[2016-08-24] MEDS ORDERED: ONDANSETRON INJ 2 MG/ML 2 ML VIAL IV STA (08:19)
[2016-08-24] MEDS ORDERED: THROMBIN FOR SOLN 20000 UNIT KIT ONE (08:22)
[2016-08-24] MEDS ORDERED: CEFAZOLIN SOD 1 GM VIAL ONE (08:23)
[2016-08-24] MEDS ORDERED: HEPARIN SOD (PORCINE) 1000 UNIT/ML 10 ML VIAL ONE (08:23)
[2016-08-24] MEDS ORDERED: LIDOCAINE HCL 1% 20 ML VIAL ONE (08:23)
--- NOTE | 2016-08-24 09:15 | Discharge Instructions ---
Discharge Instructions Visit Reason for Visit: Malignant Neoplasm Of Female Breast Discharge Discharge Diagnosis / Problem: A-port placement Activity Recommendations Activity Limitations: as noted below Shower/Bathe: keep incision dry (for 2 days) Anesthesia . Post Anesthesia Instructions: If you have had General Anesthesia or IV Sedation: * Do not drive today. * Resume driving when surgeon permits. * Do not make important decisions or sign legal documents today. * Call surgeon for: 1. Temperature elevations greater than 101 degrees F. 2. Uncontrollable pain. 3. Excessive bleeding. 4. Persistent nausea and vomiting. 5. Medication intolerance (nausea, vomiting or rash). * For nausea and vomiting use only clear liquids such as: tea, soda, bouillon until nausea subsides, then gradually increase diet as tolerated. * If you have any concerns or questions, call your surgeon's office. If physician is unavailable and it is an emergency, call 911 or go to the nearest emergency room. . Instructions / Follow-Up Instructions / Follow-Up Dr. Soria's office in 2 weeks to have sutures removed Diet Recommendations Recommended Home Diet: no limitations Pending Studies Studies pending at discharge: no Medical Emergencies . Who to Call and When: Medical Emergencies: If at any time you feel your situation is an emergency, please call 911 immediately. . Non-Emergent Contact Non-Emergency issues call your: Surgeon Call Non-Emergent contact if: you have a fever, temperature is above 101.5, your pain is not controlled, wound has increased redness . . "Provider Documentation" section prepared by Rolo Stokes.
[2016-08-24] MEDS ORDERED: EpHEDrine SULFATE INJ 50 MG/ML AMP IV PRN (09:30)
[2016-08-24] MEDS ORDERED: ONDANSETRON INJ 2 MG/ML 2 ML VIAL IV PRN ×3 (09:30→09:45)
[2016-08-24] MEDS ORDERED: FENTANYL CITRATE INJ 50 MCG/1 ML 2 ML VIAL IV PRN (09:30)
[2016-08-24] MEDS ORDERED: ATROPINE SULFATE 0.1 MG/ML 5ML SYR IV PRN (09:30)
[2016-08-24] MEDS ORDERED: LACTATED RINGER'S 1000ML 1,000 ML IV SCH (09:33)
--- NOTE | 2016-08-24 09:41 | [facility] Post Operative Brief Note ---
Immediate Operative Summary Operative Date Aug 24, 2016. Pre-Operative Diagnosis Recurrent metastatic breast cancer Post-Operative Diagnosis same as preop Procedure(s) Performed Infusaport insertion into right subclavian vein Surgeon Dr. 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
[2016-08-24] MEDS ORDERED: HYDROCODONE/ACETAMOPHEN 5/325MG TAB PO PRN ×2 (09:45)
[2016-08-24] MEDS ORDERED: MoRPHine SULFATE 2 MG/ML CARP IV PRN (09:45)
[2016-08-24] MEDS ORDERED: TRAMADOL HCL 50 MG TAB PO PRN (09:45)
--- NOTE | 2016-08-24 10:19 | Anesthesiology Progress Note ---
Anesthesia Post Op Note Date & Time Aug 24, 2016 at 10:20 Vital Signs Pain Intensity: 0 Vital Signs Past 12 Hours Date Time Temp Pulse Resp B/P Pulse Ox O2 Delivery O2 Flow Rate FiO2 08/24/16 10:13 37.3 77 20 193/100 94 Nasal Cannula 2 08/24/16 10:12 36.6 79 20 194/99 95 Nasal Cannula 2 08/24/16 10:00 36.6 84 20 201/84 96 Nasal Cannula 2 08/24/16 09:50 36.6 82 18 176/100 96 Nasal Cannula 2 08/24/16 09:40 36.6 89 18 182/87 97 Nasal Cannula 2 08/24/16 07:36 37.1 86 20 150/76 92 Room Air Notes Mental Status: alert / awake / arousable, participated in evaluation Pt Amnestic to Procedure: Yes Nausea / Vomiting: adequately controlled Pain: adequately controlled Airway Patency, RR, SpO2: stable & adequate BP & HR: stable & adequate Hydration State: stable & adequate Anesthetic Complications: no major complications apparent
--- NOTE | 2016-08-24 10:19 | DIAGNOSTIC IMAGING REPORT ---
CHEST ONE VIEW PORTABLE CLINICAL HISTORY: port placement COMPARISON STUDY: 08/20/2016 FINDINGS: Central catheter place in superior vena cava. No evidence of pneumothorax. All remaining findings are similar. IMPRESSION: Central catheter place in superior vena cava. No evidence pneumothorax. Electronically signed by: Rios Love M.D. 08/24/2016 10:17 AM Dictated Date/Time: 08/24/2016 10:08 AM
--- NOTE | 2016-08-24 10:24 | OPERATIVE REPORT ---
DATE OF OPERATION: 08/24/2016 PREOPERATIVE DIAGNOSIS: Metastatic breast cancer. POSTOPERATIVE DIAGNOSIS: Same. NAME OF OPERATION: Access port placement. STAFF SURGEON: Dr. Soria. ANESTHESIA: 1% plain lidocaine with sedation. PROCEDURE: The patient brought in the operating room and placed on the operating table in supine position. Her chest was prepped and draped in usual fashion, on the right side specifically. Using 1% plain lidocaine, skin and subcutaneous tissue over the right deltopectoral groove were anesthetized. Incision made carrying dissection down through significant adipose tissue. I did identify the deltopectoral groove, but could not identify significant cephalic vein. At this point, patient was placed in Trendelenburg position. Then, using a puncture technique, the right subclavian vein was localized with a needle, a wire passed under fluoroscopy and then the needle removed. At this point, the wire was in place. A dilator and introducer passed over the wire under fluoroscopy. The dilator and wire removed. Catheter then passed down into the distal superior vena cava and then the introducer removed. At this point, the catheter was aspirated and flushed with heparinized solution. A pocket was fashioned in the subcutaneous tissue and then the port attached to the catheter. The port was then placed into the pocket and secured to the tissue using 3-0 Prolene suture. It was irrigated with antibiotic solution. The port was aspirated and flushed with heparinized solution. Then the subcutaneous tissue was reapproximated using 2-0 chromic catgut suture then the skin reapproximated using 4-0 nylon suture. The patient was transferred to recovery room in stable condition. I attest to the content of the Intraoperative Record and any orders documented therein. Any exceptio ns are noted below.
[2016-08-24 10:30] VITALS: BP 178/79; PULSE 89; TEMP 36.5; O2SAT 91
[2016-08-24 11:00] VITALS: BP 194/85; PULSE 84; O2SAT 91
[2016-08-24 11:25] VITALS: BP 198/83; PULSE 80; TEMP 36.9; O2SAT 95
[2016-08-24] MEDS ORDERED: CTP/1 PO (17:54)
[2016-08-24] MEDS ORDERED: CALC-388 PO (17:54)
[2016-08-24] MEDS ORDERED: CHOL100010 PO (17:54)
== END 2016-08-24 11:30 | disposition home or self-care (01) ==
LOC: C.ACU 07:03
PROVIDERS: ATTEND Surgery
DX: C79.81 Secondary malignant neoplasm of breast (principal); I10 Essential (primary) hypertension; E66.9 Obesity, unspecified; Z68.35 Body mass index [BMI] 35.0-35.9, adult; Z90.10 Acquired absence of unspecified breast and nipple; Z96.653 Presence of artificial knee joint, bilateral; Z98.41 Cataract extraction status, right eye; Z98.42 Cataract extraction status, left eye; Z87.891 Personal history of nicotine dependence

== ENCOUNTER 2016-08-24 16:56 | Observation (INO) | payer BC ==
[~2016-08-24] VITALS: Ht 165.1 cm; Wt 92.5 kg
[~2016-08-24 16:56] MED LIST changes: -CEFAZOLIN 2000 MG/60 ML D5W IV SCH; -LACTATED RINGER'S 1000ML 1,000 ML IV SCH; +ONDA8TAB6 PO; +PROC1TAB5 PO
[2016-08-24] MEDS ORDERED: ONDANSETRON INJ 2 MG/ML 2 ML VIAL IV STA (17:27)
[2016-08-24] MEDS ORDERED: ACETAMINOPHEN 500 MG TAB PO STA (17:28)
--- NOTE | 2016-08-24 17:50 | DIAGNOSTIC IMAGING REPORT ---
CHEST ONE VIEW PORTABLE HISTORY: fever COMPARISON: Chest 08/24/2016. FINDINGS: Right subclavian Port-A-Cath terminates in the SVC. No pneumothorax. Low lung volumes. Left axillary clips. Linear densities within the mid to lower lung zones persist. Small bilateral pleural effusions and mild cardiomegaly remain unchanged. Mild central pulmonary vascular congestion without overt edema. IMPRESSION: Overall, similar appearance to the prior study. Bilateral mid to lower lung zone densities and small bilateral pleural effusions persist. There is mild central pulmonary vascular congestion without overt edema. Electronically signed by: Reynold Winn M.D. 08/24/2016 5:48 PM Dictated Date/Time: 08/24/2016 5:47 PM
[2016-08-24] MEDS ORDERED: CHOL100010 PO (17:54)
[2016-08-24] MEDS ORDERED: CALC-388 PO (17:54)
[2016-08-24] MEDS ORDERED: CTP/1 PO (17:54)
[2016-08-24 18:36] LABS: COMPLETE YES; HEMATOCRIT 42.7 % (37-47); LYMPH % 5.6 %; LYMPH ABS # 0.39 K/uL (1.2-3.4); MEAN CELL VOLUME 96.6 fL (80-100); MEAN CORPUSCULAR HEMOGLOBIN 32.8 pg (25-34); MEAN PLATELET VOLUME 10.6 fL (7.4-10.4); MONO % 0.1 %; NEUT % 94.3 %; PLATELET COUNT 106 K/uL (130-400); RED BLOOD COUNT 4.42 M/uL (4.2-5.4); WHITE BLOOD COUNT 6.98 K/uL (4.8-10.8)
--- NOTE | 2016-08-24 18:37 | EMERGENCY ROOM VISIT NOTE ---
History Report prepared by Jewel: Mao Chicas Under the Supervision of: Dr. Ian Walker M.D. First contact with patient: 17:21 Chief Complaint: OTHER COMPLAINT Stated Complaint: PORT PUT IN THIS MORNING; VOMITING, FEVER History of Present Illness The patient is a 76 year old female who presents to the Emergency Room with complaints of a persistent fever beginning five and a half hours prior to arrival. She associates nausea, cough, and shortness of breath with today's symptoms. As per daughter, the patient had a port placed in her right chest this morning by Dr. Soria for chemotherapy for breast cancer. She states the patient began experiencing her symptoms upon returning home. The patient notes she received her second session of chemotherapy two days ago. She states she has not vomited but coughs up phlegm. The patient notes a history of a hysterectomy. She denies a rash, burning with urination, diarrhea, and abdominal pain. 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 A total of 10 systems reviewed and were otherwise negative. Past Medical & Surgical Medical Problems: (1) Ankylosing spondylitis (2) Breast cancer (3) Gastroesophageal reflux disease (4) Hyperparathyroidism (5) Hypertension (6) Metastatic breast cancer (7) Osteopenia (8) Pericardial effusion (9) Vomiting Surgical Problems: (1) H/O mastectomy (2) S/P hysterectomy Family History Patient reports no known family medical history. Social History Smoking Status: Former Smoker Marital Status: Occupation Status: retired Current/Historical Medications Scheduled Calcium Carbonate-Vitamin D (Calcium + D3 600-200 mg-Unit), 1 TAB PO QAM Cholecalciferol (Vitamin D), 2,000 UNIT PO QAM Folic Acid (Folvite), 1 MG PO QAM Lisinopril (Zestril), 40 MG PO QAM Methotrexate (Methotrexate), 2.5 MG PO Monday Prednisone (Prednisone), 4 MG PO QAM Ranitidine (Zantac), 150 MG PO QAM Triamterene/Hctz (Triamterene/Hctz 37.5-25MG), 1 TAB PO Q2D Scheduled PRN Clonidine Hcl (Catapres), 0.1 MG PO BID PRN for PRN Ondansetron Hcl (Zofran), 8 MG PO Q8 PRN for Nausea Prochlorperazine Maleate (Compazine), 1 TAB PO Q6 PRN for Nausea or Vomiting Tramadol (Ultram), 50 MG PO Q4H PRN for Pain Allergies Coded Allergies: Diphenhydramine (Verified Adverse Reaction, Mild, POOR TOLERANCE OF BENADRYL IV, 08/24/16) POOR TOLERANCE OF BENADRYL Physical Exam Vital Signs Date Time Temp Pulse Resp B/P Pulse Ox O2 Delivery O2 Flow Rate FiO2 08/24/16 22:59 88 18 121/59 96 Room Air 08/24/16 18:42 178/80 08/24/16 17:16 38.5 99 20 151/73 87 Room Air Physical Exam GENERAL: Patient is ill appearing and in mild distress. HEENT: No acute trauma, normocephalic atraumatic, mucous membranes moist, no nasal congestion, no scleral icterus. NECK: No stridor, no adenopathy, no meningismus, trachea is midline. LUNGS: Mildly dyspneic. Decreased breath sounds in right lower lobe. HEART: Regular rate and rhythm. No murmurs, rubs, gallops appreciated. ABDOMEN: Soft, nontender, bowel sounds positive, no masses appreciated, no peritonitis. BACK: No midline tenderness, no CVA tenderness EXTREMITIES: Lymphedema of left arm. Mild edema in bilateral lower legs. Normal motion all extremities, no cyanosis. NEUROLOGIC: Alert and oriented, no acute motor or sensory deficits, no focal weakness, cranial nerves grossly intact. SKIN: Recently placed Mediport in right upper chest, dressed. PeriVac in right lower chest. No rash, no jaundice, no diaphoresis. Medical Decision & Procedures ER Provider Diagnostic Interpretation: X ray results are stated below per my interpretation and the radiologist's interpretation. CHEST ONE VIEW PORTABLE HISTORY: fever COMPARISON: Chest 08/24/2016. FINDINGS: Right subclavian Port-A-Cath terminates in the SVC. No pneumothorax. Low lung volumes. Left axillary clips. Linear densities within the mid to lower lung zones persist. Small bilateral pleural effusions and mild cardiomegaly remain unchanged. Mild central pulmonary vascular congestion without overt edema. IMPRESSION: Overall, similar appearance to the prior study. Bilateral mid to lower lung zone densities and small bilateral pleural effusions persist. There is mild central pulmonary vascular congestion without overt edema. Electronically signed by: Reynold Winn M.D. 08/24/2016 5:48 PM Laboratory Results 08/24/16 18:20 Red Blood Count 4.42, Mean Corpuscular Volume 96.6, Mean Corpuscular Hemoglobin 32.8, Mean Corpuscular Hemoglobin Concent 34.0, Mean Platelet Volume 10.6, Neutrophils (%) (Auto) 94.3, Lymphocytes (%) (Auto) 5.6, Monocytes (%) (Auto) 0.1, Eosinophils (%) (Auto) 0.0, Basophils (%) (Auto) 0.0, Neutrophils # (Auto) 6.58, Lymphocytes # (Auto) 0.39, Monocytes # (Auto) 0.01, Eosinophils # (Auto) 0.00, Basophils # (Auto) 0.00 08/24/16 18:20 Test 08/24/16 18:20 White Blood Count 6.98 K/uL (4.8-10.8) Red Blood Count 4.42 M/uL (4.2-5.4) Hemoglobin 14.5 g/dL (12.0-16.0) Hematocrit 42.7 % (37-47) Mean Corpuscular Volume 96.6 fL (80-100) Mean Corpuscular Hemoglobin 32.8 pg (25-34) Mean Corpuscular Hemoglobin Concent 34.0 g/dl (32-36) Platelet Count 106 K/uL (130-400) Mean Platelet Volume 10.6 fL (7.4-10.4) Neutrophils (%) (Auto) 94.3 % Lymphocytes (%) (Auto) 5.6 % Monocytes (%) (Auto) 0.1 % Eosinophils (%) (Auto) 0.0 % Basophils (%) (Auto) 0.0 % Neutrophils # (Auto) 6.58 K/uL (1.4-6.5) Lymphocytes # (Auto) 0.39 K/uL (1.2-3.4) Monocytes # (Auto) 0.01 K/uL (0.11-0.59) Eosinophils # (Auto) 0.00 K/uL (0-0.5) Basophils # (Auto) 0.00 K/uL (0-0.2) RDW Standard Deviation 47.8 fL (36.4-46.3) RDW Coefficient of Variation 13.5 % (11.5-14.5) Immature Granulocyte % (Auto) 0.0 % Immature Granulocyte # (Auto) 0.00 K/uL (0.00-0.02) Anion Gap 8.0 mmol/L (3-11) Est Creatinine Clear Calc Drug Dose 54.0 ml/min Estimated GFR () 68.7 Estimated GFR (Non- 59.3 BUN/Creatinine Ratio 14.8 (10-20) Calcium Level 9.1 mg/dl (8.5-10.1) Magnesium Level 2.3 mg/dl (1.8-2.4) Total Bilirubin 0.9 mg/dl (0.2-1) Direct Bilirubin 0.2 mg/dl (0-0.2) Aspartate Amino Transf (AST/SGOT) 29 U/L (15-37) Alanine Aminotransferase (ALT/SGPT) 40 U/L (12-78) Alkaline Phosphatase 145 U/L (45-117) Total Creatine Kinase 136 U/L (26-192) Creatine Kinase MB 1.5 ng/ml (0.5-3.6) Creatine Kinase MB Ratio 1.1 (0-3.0) Troponin I 0.041 ng/ml (0-0.045) Total Protein 8.2 gm/dl (6.4-8.2) Albumin 3.5 gm/dl (3.4-5.0) Laboratory results as reviewed by me. Medications Administered Medications (Trade) Dose Ordered Sig/Mau Route Start Time Stop Time Status Last Admin Dose Admin Ondansetron HCl (Zofran Inj) 4 mg NOW STAT IV 08/24/16 17:27 08/24/16 17:29 DC 08/24/16 18:41 4 MG Acetaminophen (Tylenol Tab) 1,000 mg NOW STAT PO 08/24/16 17:28 08/24/16 17:29 DC 08/24/16 18:07 1,000 MG ECG Indication: nausea Rate (beats per minute): 87 Rhythm: normal sinus Findings: no acute ischemic change, no ectopy ED Course 1725: The patient was evaluated in room C10. A complete history and physical exam was performed. 172: Ordered Zofran Inj 4 mg IV. 1727: Ordered Tylenol Tab 1,000 mg PO. 1815: Reevaluated the patient at this time, and she is breathing better on oxygen. 1919: I spoke to ANDREE Rouse (Hospitalist) about the patient's case, and he will follow the patient for further evaluation. Medical Decision Differential: Viral, Pharyngitis, Cellulitis, Pneumonia, Influenza, Meningitis, Sepsis, Bacteremia, UTI/Pyelonephritis, Endocrine, Toxicologic, amongst other pathologies entertained. 76 yr old female arrives with complaint of shortness of breath and not feeling well. Just had port placed this morning. CXR without acute change nor pneumothorax. WBC OK, no overt clear source of fever. Will defer abx to hospitalist though with hypoxia will clearly need to come in. I suspect that she has post op atelectasis and possibly some fluid overload. Question is whether she has risk of seeding new port? Will plan on bringing in for further evaluation/treatment. Stable throughout ED stay while on [place] O2. Consults Time Called: 1917 Consulting Physician: ANDREE Rouse (Hospitalist) Returned Call: 1919 I spoke to ANDREE Rouse (Hospitalist) about the patient's case, and he will follow the patient for further evaluation. Impression Primary Impression: Postoperative fever Additional Impression: Hypoxia Scribe Attestation The scribe's documentation has been prepared under my direction and personally reviewed by me in its entirety. I confirm that the note above accurately reflects all work, treatment, procedures, and medical decision making performed by me. Departure Information Dispostion Being Evaluated By Hospitalist (ANDREE Rouse (Hospitalist)) Referrals Pro,Ernesto Arguelles M.D. (PCP) Problem Qualifiers
[2016-08-24 18:58] LABS: BUN/CREATININE RATIO 14.8 (10-20); CALCIUM 9.1 mg/dl (8.5-10.1); CREATININE 0.93 mg/dl (0.60-1.20); MAGNESIUM 2.3 mg/dl (1.8-2.4); POTASSIUM 4.5 mmol/L (3.5-5.1)
[2016-08-24 19:13] LABS: CKMB/CK RATIO 1.1 (0-3.0)
[2016-08-24] MEDS ORDERED: DOCUSATE SODIUM 100 MG CAP PO PRN (20:00)
[2016-08-24] MEDS ORDERED: POLYETHYLENE (MIRALAX) 17 GM PACK PO PRN (20:00)
[2016-08-24] MEDS ORDERED: TRAMADOL HCL 50 MG TAB PO PRN (20:00)
[2016-08-24] MEDS ORDERED: ONDANSETRON INJ 2 MG/ML 2 ML VIAL IV PRN ×2 (20:00)
[2016-08-24] MEDS ORDERED: SODIUM CHLORIDE 0.9% 1000ML 1,000 ML IV ONE (20:00)
[2016-08-24] MEDS ORDERED: ACETAMINOPHEN 325 MG TAB PO PRN (20:00)
[2016-08-24] MEDS ORDERED: MAGNESIUM HYDROXIDE SUSP 30 ML UDC PO PRN (20:00)
[2016-08-24] MEDS ORDERED: CLONIDINE HCL 0.1 MG TAB PO PRN (20:00)
[2016-08-24] MEDS ORDERED: ALUMINUM/MAGNESIUM/SIMETH (MAALOX MAX) 30 ML UDC PO PRN (20:00)
[2016-08-24] MEDS ORDERED: ONDANSETRON 8 MG TAB PO PRN (20:00)
[2016-08-24] MEDS ORDERED: IV FLUIDS COMPLETED PRN (20:15)
--- NOTE | 2016-08-24 20:56 | History and Physical ---
History & Physical Date & Time of Service: Aug 24, 2016 at 20:38 Chief Complaint: Port Put In This Morning; Vomiting, Fever Primary Care Physician: Ernesto Becker M.D. History of Present Illness Source: patient, family (daughter) The patient is a 76-year-old female who presents to the hospital today with sudden onset nausea and vomiting. This morning at 7 AM she had a port placement procedure done by Dr. Soria in the [facility] [place]. Postoperatively she did well and was discharged home at approximately 11:30. She did get food at home and ate a sandwich with cheese, but no meat or mayonnaise. Then at 13:30 PM had sudden onset nausea and vomiting. He did have a home nurse come to the house today who recommended having her come to the ED for further evaluation. She notes that prior to her procedure this morning she has been doing extremely well. She has not had any nausea or vomiting. No abdominal pain. No diarrhea. She does not being constipated for the past 2 days and has not had a BM since then. She has not had fevers chills or night sweats. Her daughter does note that she has been coughing more in the past 2 days, and has been bringing up a mixed clear/yellow sputum. No blood. She does have a noted history of metastatic breast cancer. He is currently following with Dr. Barragan. She has been on a combination of paclitaxel and Gemzar. She has had 2 treatment sessions thus far, her last one was 3 days ago. She notes that up until now she has tolerated it. She has had complications from the malignancy including a persistent right-sided malignant effusion for which she has had Pleurx catheter placed one month ago by Dr. Tena. She has also had a pericardial effusion and has had a pericardial window procedure. Past Medical/Surgical History Medical Problems: (1) Ankylosing spondylitis Status: Chronic (2) Breast cancer Status: Resolved (3) Gastroesophageal reflux disease Status: Chronic (4) Hyperparathyroidism Status: Chronic (5) Hypertension Status: Chronic (6) Osteopenia Status: Resolved Surgical Problems: (1) H/O mastectomy Status: Resolved (2) S/P hysterectomy Status: Resolved Hypertension Family History Patient reports no known family medical history. 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[employer]) Immunizations History of Influenza Vaccine: Yes History of Tetanus Vaccine?: No History of Pneumococcal: No History of Hepatitis B Vaccine: No Multi-Drug Resistant Organisms History of MDRO: No Allergies Coded Allergies: Diphenhydramine (Verified Adverse Reaction, Mild, POOR TOLERANCE OF BENADRYL IV, 08/24/16) POOR TOLERANCE OF BENADRYL Home Medications Scheduled Calcium Carbonate-Vitamin D (Calcium + D3 600-200 mg-Unit), 1 TAB PO QAM Cholecalciferol (Vitamin D), 2,000 UNIT PO QAM Folic Acid (Folvite), 1 MG PO QAM Lisinopril (Zestril), 40 MG PO QAM Methotrexate (Methotrexate), 2.5 MG PO Monday Prednisone (Prednisone), 4 MG PO QAM Ranitidine (Zantac), 150 MG PO QAM Triamterene/Hctz (Triamterene/Hctz 37.5-25MG), 1 TAB PO Q2D Scheduled PRN Clonidine Hcl (Catapres), 0.1 MG PO BID PRN for PRN Ondansetron Hcl (Zofran), 8 MG PO Q8 PRN for Nausea Prochlorperazine Maleate (Compazine), 1 TAB PO Q6 PRN for Nausea or Vomiting Tramadol (Ultram), 50 MG PO Q4H PRN for Pain Review of Systems A 10 point review of systems was negative unless stated above in the history of present illness Physical Exam Vital Signs Date Time Temp Pulse Resp B/P Pulse Ox O2 Delivery O2 Flow Rate FiO2 08/24/16 18:42 178/80 08/24/16 17:16 38.5 99 20 151/73 87 Room Air General Appearance: WD/WN, no apparent distress Head: normocephalic, atraumatic Eyes: normal inspection, EOMI ENT: hearing grossly normal, pharynx normal Neck: supple, no adenopathy, no JVD Respiratory/Chest: chest non-tender, + pertinent finding (diminished breath sounds right greater than left, questionable crackles at the right base) Cardiovascular: regular rate, rhythm, no gallop, no murmur Abdomen/GI: normal bowel sounds, non tender, soft Back: normal inspection, no CVA tenderness, no muscle spasm Extremities/Musculoskelatal: no calf tenderness, no pedal edema Neurologic/Psych: alert, normal mood/affect, oriented x 3 Skin: normal color, warm/dry, no rash Lymphatic: no adenopathy Diagnostics Laboratory Results Results Past 24 Hours Test 08/24/16 18:20 Range/Units White Blood Count 6.98 4.8-10.8 K/uL Red Blood Count 4.42 4.2-5.4 M/uL Hemoglobin 14.5 12.0-16.0 g/dL Hematocrit 42.7 37-47 % Mean Corpuscular Volume 96.6 80-100 fL Mean Corpuscular Hemoglobin 32.8 25-34 pg Mean Corpuscular Hemoglobin Concent 34.0 32-36 g/dl Platelet Count 106 130-400 K/uL Mean Platelet Volume 10.6 7.4-10.4 fL Neutrophils (%) (Auto) 94.3 % Lymphocytes (%) (Auto) 5.6 % Monocytes (%) (Auto) 0.1 % Eosinophils (%) (Auto) 0.0 % Basophils (%) (Auto) 0.0 % Neutrophils # (Auto) 6.58 1.4-6.5 K/uL Lymphocytes # (Auto) 0.39 1.2-3.4 K/uL Monocytes # (Auto) 0.01 0.11-0.59 K/uL Eosinophils # (Auto) 0.00 0-0.5 K/uL Basophils # (Auto) 0.00 0-0.2 K/uL RDW Standard Deviation 47.8 36.4-46.3 fL RDW Coefficient of Variation 13.5 11.5-14.5 % Immature Granulocyte % (Auto) 0.0 % Immature Granulocyte # (Auto) 0.00 0.00-0.02 K/uL Sodium Level 134 136-145 mmol/L Potassium Level 4.5 3.5-5.1 mmol/L Chloride Level 98 98-107 mmol/L Carbon Dioxide Level 28 21-32 mmol/L Anion Gap 8.0 3-11 mmol/L Blood Urea Nitrogen 14 7-18 mg/dl Creatinine 0.93 0.60-1.20 mg/dl Est Creatinine Clear Calc Drug Dose 54.0 ml/min Estimated GFR () 68.7 Estimated GFR (Non- 59.3 BUN/Creatinine Ratio 14.8 10-20 Random Glucose 122 70-99 mg/dl Calcium Level 9.1 8.5-10.1 mg/dl Magnesium Level 2.3 1.8-2.4 mg/dl Total Bilirubin 0.9 0.2-1 mg/dl Direct Bilirubin 0.2 0-0.2 mg/dl Aspartate Amino Transf (AST/SGOT) 29 15-37 U/L Alanine Aminotransferase (ALT/SGPT) 40 12-78 U/L Alkaline Phosphatase 145 45-117 U/L Total Creatine Kinase 136 26-192 U/L Creatine Kinase MB 1.5 0.5-3.6 ng/ml Creatine Kinase MB Ratio 1.1 0-3.0 Troponin I 0.041 0-0.045 ng/ml Total Protein 8.2 6.4-8.2 gm/dl Albumin 3.5 3.4-5.0 gm/dl Microbiology Results 08/24/16 Blood Culture, Received Pending 08/24/16 Blood Culture, Darren Batch Pending Diagnostic Radiology CHEST ONE VIEW PORTABLE HISTORY: fever COMPARISON: Chest 08/24/2016. FINDINGS: Right subclavian Port-A-Cath terminates in the SVC. No pneumothorax. Low lung volumes. Left axillary clips. Linear densities within the mid to lower lung zones persist. Small bilateral pleural effusions and mild cardiomegaly remain unchanged. Mild central pulmonary vascular congestion without overt edema. IMPRESSION: Overall, similar appearance to the prior study. Bilateral mid to lower lung zone densities and small bilateral pleural effusions persist. There is mild central pulmonary vascular congestion without overt edema. Electronically signed by: Reynold Winn M.D. 08/24/2016 5:48 PM Dictated Date/Time: 08/24/2016 5:47 PM Impression Assessment and Plan 76-year-old female with metastatic breast cancer currently on chemotherapy, who presents for nausea vomiting following A-port placement this morning. Having examined her clinically, she is noted to have diminished breath sounds worse in the right base compared to the left, and despite negatively reported radiographic findings, there may be evidence of right-sided crackles per my exam. With her history of vomiting combined with likely degree of immunosuppression from chemotherapy, I would be concerned that she may have an underlying pneumonia, maybe secondary to aspiration. However she does have a chronic right-sided pleural effusion which gets drained every 2 days, which may confound with this finding. At this time she is comfortable and not in any pain. Our plan for her is as follows. Nausea and vomiting - ? Self-limited gastroenteritis? ?UTI? vs ?PNA? vs. ? Side effect of chemotherapy? - Blood cultures are pending - Urinalysis with reflex culture indicated - IV Zofran 4 mg every 4 when necessary; if this does not help, we can try IV Compazine which patient takes at home - Patient does not appear clinically dehydrated. Labs do not suggest biochemical dehydration Start patient on gentle hydration with maintenance fluid, NSS 125 mL/hour , Aspiration pneumonia - Patient has crackles at the right base - Hypoxic on arrival - Chest x-ray reported negative for acute process, but would consider an underlying pneumonia due to background of possible immunosuppression - I strongly recommended to the patient and antibiotic treatment at least until the Pleurx catheter can be drained and a repeat chest x-ray couldn't rule out a superimposing pneumonia The patient refuses antibiotic treatment at this time stating "I want as little as done as possible, until I speak to Dr. Barragan and Dr. Tena" Patient was counseled on the risks of not having IV antibiotic treatment in case there was an underlying infection, particularly worsening of infection and prolonged hospital course, along with risk of septicemia and ultimately if untreated Patient agrees to risks and continues to refuse empiric IV antibiotics until discussed with Dr. Barragan Chronic metastatic right-sided pleural effusion - Pleurx catheter in place, draining every 2 days by home nurse - Last drainage was 2 days ago - Patient was hypoxic on arrival, maintaining saturations on 2 L by nasal cannula - I recommended the patient have effusion drained. Patient is uncomfortable having a floor nurse drain the Pleurx and as such is requesting Dr. Tena be consulte to drain Pleurx at the bedside - I have placed orders for nursing to drain the Pleurx catheter if patient will allow If patient refuses, it is okay to defer to CT surgery as long as the patient' s oxygen saturations can be maintained on nasal cannula If patient desaturates, without improvement from supplemental oxygen, Pleurx catheter will need to be drained emergently - CT surgery consulted Metastatic breast cancer - Follows with Dr. Brooks - Dr. Barragan consulted to be consulted to determine whether her presentation main fact be secondary effect of her chemotherapy and if so any recommendations for regarding her treatment Ankylosing spondylitis - Patient takes Methotrexate every Monday; continue in hospital if needed Hypertension - Continue triamterene/hydrochlorothiazide - Continue lisinopril - Continue clonidine Constipation - Colace ordered for patient, she notes this helps with constipation - Milk of Magnesia ordered DVT prophylaxis - SCD - Teds - Will hold off on pharmacological anticoagulation, at least until tomorrow as patient has just had a procedure this morning - She would be moderate to high risk for DVT/PE given metastatic malignancy, so I would start her on pharmacological prophylaxis as soon as tolerated CODE STATUS - Level V DO NOT RESUSCITATE - She designates her daughter Kristi Caban, as substitute decision-maker if she cannot make decisions for herself Disposition - Med/Surg - OT/PT consults have been placed - Patient gets 3 days of home nursing visits facilitated through home nursing agency Level of Care Med/Surg Resuscitation Status DO NOT RESUSCITATE VTE Prophylaxis VTE Risk Assessment Done? Y/N: Yes Risk Level: Moderate Given or contraindicated: Contraindicated (procedure done this morning) Assessment and Plan Attending Addendum: I have physically seen and examined this patient, have directed their medical care, have supervised the medical residents activities, and agree with the H&P as noted above, with the following changes: NONE The patient is awake, well-developed and adequately nourished, alert and oriented 3, normocephalic and atraumatic, lying in bed and in no acute distress. HEENT--PERRL, EOMI, mucous membranes and oropharynx dry. Neck--supple, no JVD or bruits, thyroid normal, trachea midline, no adenopathy. Heart--normal S1 and S2, no extra beats, no murmurs, rubs or gallops. Lungs--decreased breath sounds at the bases bilaterally right greater than left , crackles at right base, no respiratory distress, no accessory muscle use. Abdomen--normal bowel sounds and soft, nontender and nondistended, no hernias or masses, no organomegaly. Extremities--no cyanosis, clubbing or edema. There are good distal pulses b/l. Dermatologic--normal skin turgor, normal color, warm and dry, no abnormal lymph nodes, no rash. Neurologic--cranial nerves II through XII grossly intact, motor and sensory examination normal. Rheumatologic--normal range of motion, nontender, muscles and joints. Psychiatric--normal affect. Assessment and Plan: Right lower lobe pneumonia/right sided Pleurx catheter--patient has not had the Pleurx drained in 3 days, and this may be the cause of her breathing issues, but she also has a strong possibility of an infection. Patient refuses to take any form of treatment until seen by Dr. Brooks and Dr. Tena. She does agree to continue nasal cannula 2 L O2 in the interim. Chronic metastatic right pleural effusion/status post Pleurx catheter-- management per Dr. Tena. Metastatic breast cancer--for Dr. Brooks. Hypertension--continue triamterene/HCTZ, lisinopril, clonidine.
[2016-08-25 00:45] VITALS: BP 158/78; PULSE 84; TEMP 37.2; O2SAT 90; BMI 34.2
[2016-08-25 03:56] VITALS: BP 149/77; PULSE 77; TEMP 37.3; O2SAT 98
[2016-08-25 06:49] VITALS: Ht 165.1 cm; Wt 92.5 kg
[2016-08-25 07:51] VITALS: PULSE 79; TEMP 37.5; O2SAT 95
[2016-08-25] MEDS ORDERED: CALCIUM 600MG + VIT D 400 IU TAB PO SCH (08:00)
[2016-08-25] MEDS ORDERED: RANITIDINE HCL 150 MG TAB PO SCH (08:00)
[2016-08-25] MEDS ORDERED: LISINOPRIL 40 MG TAB PO SCH (08:00)
--- NOTE | 2016-08-25 08:34 | Discharge Instructions ---
Discharge Instructions Admission Reason for Admission: Metastatic Breast Cancer, Vomiting Discharge Discharge Diagnosis / Problem: Metastatic breast cancer, vomiting Discharge Goals Goal(s): Decrease discomfort, Improve function, Increase independence, Improve disease control, Learn about illness, Diagnostic testing, Therapeutic intervention Activity Recommendations Activity Limitations: resume your previous activity Exercise/Sports Limitations: none . Instructions / Follow-Up Instructions / Follow-Up Patient to be discharged home Will need to follow up with Dr Barragan and Dr Tena in 1-2 weeks Will need to follow up with Dr. Becker in 1-2 weeks If worsening fevers, nausea, vomiting, chest pain, or shortness of breath please report to ER Current Hospital Diet Patient's current hospital diet: Regular Diet Discharge Diet Recommended Diet: Regular Diet Pending Studies Studies pending at discharge: no Medical Emergencies . Who to Call and When: Medical Emergencies: If at any time you feel your situation is an emergency, please call 911 immediately. . Non-Emergent Contact Non-Emergency issues call your: Primary Care Provider Call Non-Emergent contact if: you have a fever, your pain is worsening . . "Provider Documentation" section prepared by Tirso Love. VTE Core Measure Inpt VTE Proph given/why not?: Contraindicated (procedure done this morning)
--- NOTE | 2016-08-25 08:45 | Medical Consult ---
Consultation Note Date of Service Aug 25, 2016. Consultation Note Consult Dictated #[id number]
--- NOTE | 2016-08-25 08:55 | ONCOLOGY CONSULTATION ---
DATE OF CONSULTATION: 08/25/2016 REASON FOR CONSULTATION: Intractable nausea secondary to chemotherapeutic effect. HISTORY OF PRESENT ILLNESS: Vera is a 76-year-old female patient, well known to [facility], recently diagnosed with metastatic breast cancer involving regional lymphadenopathy and pericardial effusion. Apparently, the patient had had her port placed by Dr. Soria in the morning of admission. Postoperatively, she did well and was discharged home around noon. She did eat small amount of lunch. She then developed sudden nausea and vomiting roughly an hour later. Visiting nurses were contacted and recommended she come to the ED. Vera's original diagnosis was established many years ago. More recently, she had developed decline in exercise tolerance, shortness of breath and chest pain. She had also developed a left cervical mass, which was subsequently biopsied, confirming metastatic breast cancer. She was hospitalized after a PET scan, revealing pericardial and bilateral pleural effusions. PleurX catheter was placed in the right side and continues to yield pleural fluid, which was also proven to be malignant. More recently, she was started on modified paclitaxel and gemcitabine. Her last chemotherapy was administered about 3 days ago. PAST MEDICAL HISTORY: Significant for metastatic breast cancer, ankylosing spondylitis, gastroesophageal reflux disease, hyperparathyroidism, hypertension, and osteopenia. PAST SURGICAL HISTORY: Problems including mastectomy and previous hysterectomy. MEDICATIONS: Prior to admission include triamterene/hydrochlorothiazide 37.5/25 one tablet p.o. daily, Zantac 150 mg p.o. q. daily, prednisone 4 mg p.o. q. daily, methotrexate 2.5 mg p.o. once weekly, lisinopril 40 mg p.o. q.a.m., folic acid 1 mg p.o. q.a.m., cholecalciferol 2000 units p.o. q. daily, and calcium with vitamin D 1 tablet p.o. q. daily. ALLERGIES: DIPHENHYDRAMINE. FAMILY HISTORY: No history of breast or ovarian cancer. SOCIAL HISTORY: The patient is retired. She is nonsmoker and nondrinker. Lives independently. REVIEW OF SYSTEMS: GENERAL: As per HPI and most notably for a low-grade fever and nausea and vomiting. SKIN: No rashes or lesions. HEENT: She denies headaches, lightheadedness or dizziness. No visual or hearing deficits. No sinus symptoms, sore throat or dysphagia. LYMPHATICS: Positive for metastatic lymphadenopathy. CARDIAC: Positive for previous pericardial effusion, status post pericardial window with malignant effusion. She currently denies chest pain or palpitations. PULMONARY: Positive for malignant pleural effusion, status post PleurX catheter placement in the right side. She is not presently short of breath or dyspneic. No orthopnea reported. GASTROINTESTINAL: Positive for nausea and vomiting. No abdominal pain. Positive for constipation. She reports no diarrhea, hematochezia or melena. GENITOURINARY: No hematuria, dysuria, or urinary incontinence. PSYCHIATRIC: Negative for anxiety, depression or psychoses. ENDOCRINE: Positive for hyperparathyroidism. NEUROLOGIC: Negative for seizure, stroke, or migraine headache. HEMATOLOGIC: Negative for anemia or thrombophilia. Positive for mild thrombocytopenia, most likely attributable to chemotherapeutic effect. PHYSICAL EXAMINATION: GENERAL: Vera is sitting at bedside, awake, alert, conversant and appropriate. VITAL SIGNS: Temperature 37.5, pulse 79, respirations 16, and blood pressure 149/77. SKIN: Warm, dry, and noncyanotic without petechia, rash or ecchymosis. HEENT: Head: Atraumatic and normocephalic. Eyes: PERRLA, EOMI. Sclerae nonicteric. Nares are patent. Throat is clear. Tongue midline. No buccal lesions or ulcerations. NECK: Supple. HEART: Regular rate and rhythm, 2/6 holosystolic murmur heard in the left precordium. RESPIRATORY: Breath sounds are diminished in the right base. Otherwise, no rales or rhonchi appreciated. ABDOMEN: Soft, nontender, and nondistended without palpable hepatosplenomegaly. EXTREMITIES: No calf tenderness or swelling. No clubbing, cyanosis or edema. MUSCULOSKELETAL: Strength and pulses are equal. NEUROLOGICALLY: She is awake, alert and oriented x3. Cranial nerves II-XII are intact. LABORATORY DATA: WBC count 6980, hemoglobin 14.5, and platelet count 106,000. Sodium 134, potassium 4.5, chloride 98, carbon dioxide 28, BUN 14, and creatinine 0.93. LFTs otherwise unremarkable. Chest x-ray done on admission, overall similar appearance to prior study, bilateral mid to lower lung zone densities, small bilateral pleural effusions persist. IMPRESSION: 1. Adverse chemotherapeutic effect. 2. Pleural and pericardial effusions by history. 3. Metastatic breast cancer. 4. Thrombocytopenia (mild). 5. Low grade fever. PLAN: Vera is a pleasant 76-year-old female patient who is currently suffering from metastatic breast cancer as described in the HPI. She recently started salvage modified gemcitabine and paclitaxel. Her last chemo was administered 3 days ago. She recently had a MediPort placed and shortly thereafter developed nausea, which I suspect is attributable to chemotherapeutic effect as is her mild thrombocytopenia. Low grade fever is also commonly associated with gemcitabine. She appears to have no other evidence of infection. Blood cultures are pending. I would continue to provide IV hydration and aggressive anti-emesis therapy. She also was somewhat constipated and will work on her bowels throughout the day. I would prefer she not remain in hospital for a prolonged period of time unless there is a medical reason to do so. We will consider changing her anti-emesis regimen. I encouraged Vera to call the office if she develops nausea, especially during the business week as we can manage these symptoms readily as an outpatient. I have nothing further to add at this time. Thank you for allowing me to participate in her care.
[2016-08-25] MEDS ORDERED: TRIAMTERENE/HCTZ 37.5/25MG TAB PO SCH (09:00)
[2016-08-25 09:05] VITALS: BP 149/77; PULSE 79; TEMP 37.5; O2SAT 95
--- NOTE | 2016-08-25 09:09 | CONSULTATION REPORT ---
DATE OF CONSULTATION: 08/25/2016 HISTORY OF PRESENT ILLNESS: PleurX catheter management. HISTORY OF PRESENT ILLNESS: This is a 76-year-old female, well known to our service. The patient has a history of metastatic breast cancer and she subsequently developed a metastatic pericardial effusion. Dr. Tena was consulted during her previous hospitalization. The patient ultimately underwent a thorascopic pericardial window as well as placement of a left PleurX catheter on July 25. The patient has continued to have a PleurX catheter drained by visiting nurse as an outpatient and has done quite well. The patient subsequently had an A-port placed by Dr. Soria yesterday and following this procedure, developed some intractable nausea and vomiting. Because of this, she was admitted to the hospital and it was felt the patient was suffering from self-limiting gastroenteritis. I discussed with the patient at bedside and she says that her nausea and vomiting is largely resolved. Concerning other symptomatology, there have been no falls, head injuries, visual changes, tinnitus or sore throat. She denies neck pain, chest pain and has not been short of breath. She currently denies any nausea, vomiting, or abdominal pain. No dysuria is noted. She has no history of stroke, seizure, migraine headache, anxiety, depression, DVT, or PE. Concerning the patient's PleurX catheter, the patient says that she has been having a PleurX catheter drained every other day and sometimes, she is getting approximately 100 mL or more. We have been asked to see the patient as the patient was reluctant to have the floor nurses drain her PleurX catheter without Dr. Tena's involvement. She did, however, allow the bedside nurses to drain the PleurX catheter for approximately 500 mL of fluid yesterday and she is doing quite well. PAST MEDICAL HISTORY: Includes the followin. Breast cancer. 2. History of metastatic pericardial effusion. 3. Hypertension. 4. Osteopenia. 5. Ankylosing spondylitis. 6. Secondary hyperparathyroidism. 7. GERD. PAST SURGICAL HISTORY: Includes, 1. Left thyroid lobectomy. 2. Left mastectomy. 3. Pericardial window with a left PleurX catheter placement on July 25 of this year. 4. A-port placement yesterday. ALLERGIES: BENADRYL. OUTPATIENT MEDICATIONS: Include the followin. Calcium carbonate with vitamin D daily. 2. Vitamin D 2000 units daily. 3. Catapres 0.1 mg twice daily as needed. 4. Folic acid 1 mg daily except for Tuesdays. 5. Lisinopril 40 mg daily. 6. Methotrexate 2.5 mg daily. 7. Zofran as needed. 8. Prednisone 4 mg daily. 9. Compazine as needed. 10. Zantac 150 mg daily. 11. Ultram as needed. 12. Triamterene/HCTZ 37.5/25 daily. SOCIAL HISTORY: She is a former smoker. FAMILY HISTORY: Positive for valvular heart disease. REVIEW OF SYSTEMS: See above. PHYSICAL EXAMINATION: VITAL SIGNS: The patient is afebrile with temperature 37.5, pulse 79 and regular, respirations are 16 unlabored, blood pressure 149/77, and pulse ox 95% on 2 liters. SKIN: Warm with good turgor. GENERAL: She is alert. She is oriented x3. She is in no distress. HEENT: Head is atraumatic and normocephalic. Eyes: Pupils equal, round and reactive to light and accommodation. Extraocular motions are intact. Ears: Auditory acuity is grossly intact. Nose: Nasal patency was intact. Sinuses are nontender. Mouth: Moist without exudates. NECK: Supple. There is no JVD. CARDIOVASCULAR: Regular rate and rhythm. LUNGS: Bilaterally clear to auscultation with good air movement even at the bases. No use of accessory muscles noted. ABDOMEN: Soft and nontender. EXTREMITIES: Revealed no cyanosis, clubbing or edema. NEUROLOGIC: Revealed cranial nerves II through XII are grossly intact. No focal deficits are noted. DIAGNOSTIC DATA: The patient did have a chest x-ray yesterday that showed small bilateral pleural effusions. CBC at the time of admission showed hemoglobin, hematocrit, and white blood cell count were all normal. platelet count was slightly low at 106. Chemistry profile showed sodium was low at 134. Potassium, BUN and creatinine were all within the normal range. IMPRESSION: A 76-year-old female with metastatic breast cancer. PLAN: I have discussed with the patient that while she remains hospitalized, it is okay for the bedside nurses to drain her PleurX catheter once daily and also as needed. She is agreeable to this. I have discussed with her that upon discharge from the hospital, she will continue to have visiting nurses to drain her PleurX catheter and she will see us in the office next week for further management concerning her PleurX.
--- NOTE | 2016-08-25 13:32 | Discharge Summary ---
Discharge Summary Date of Service Aug 25, 2016. Discharge Summary Admission Date: Aug 24, 2016 at 19:58 Discharge Date: Aug 25, 2016 Discharge Disposition: Home Principal Diagnosis: Fever, metastatic breast cancer Immunizations: Have You Had Influenza Vaccine: Yes History of Tetanus Vaccine?: No History of Pneumococcal: No History of Hepatitis B Vaccine: No Consultations: Thoracic surgery Hematology/oncology Medication Reconciliation Continued Medications: Calcium Carbonate-Vitamin D (Calcium + D3 600-200 mg-Unit) 1 Tab Tab 1 TAB PO QAM Cholecalciferol (Vitamin D) 1,000 Unit Tab 2000 UNIT PO QAM Clonidine Hcl (Catapres) 0.1 Mg Tab 0.1 MG PO BID PRN for PRN, TAB PRN BP 170 MMHG OR HIGH MAY TAKE UPTO 2 TABS Folic Acid (Folvite) 1 Mg Tab 1 MG PO QAM, TAB DOES NOT TAKE ON TUESDAYS Lisinopril (Zestril) 40 Mg Tab 40 MG PO QAM for 90 Days, #90 TAB 1 Refill Methotrexate (Methotrexate) 2.5 Mg Tab 2.5 MG PO Monday, TAB TAKES IN AM Ondansetron Hcl (Zofran) 8 Mg Tab 8 MG PO Q8 PRN for Nausea, TAB Prednisone (Prednisone) 1 Mg Tab 4 MG PO QAM, TAB Prochlorperazine Maleate (Compazine) 10 Mg Tab 1 TAB PO Q6 PRN for Nausea or Vomiting for 7 Days, #30 TAB 3 Refills Ranitidine (Zantac) 150 Mg Tab 150 MG PO QAM, TAB Tramadol (Ultram) 50 Mg Tab 50 MG PO Q4H PRN for Pain for 30 Days, #120 TAB Triamterene/Hctz (Triamterene/Hctz 37.5-25MG) 1 Tab Tab 1 TAB PO Q2D, TAB Discharge Exam Review of Systems: Constitutional: No chills, No fever Respiratory: No cough, No dyspnea on exertion, No shortness of breath, No sputum, No wheezing Cardiovascular: No chest pain, No orthopnea Abdomen: No diarrhea, No nausea, No pain, No vomiting Musculoskeletal: No joint pain, No muscle pain Genitourinary - Female: No dysuria, No urinary frequency, No urinary urgency Neurologic: No paralysis, No weakness Physical Exam: General Appearance: WD/WN, no apparent distress Neck: supple, no adenopathy Respiratory/Chest: lungs clear, normal breath sounds Cardiovascular: no edema, no gallop Abdomen / GI: non tender, soft Neurologic/Psychiatric: alert, oriented x 3 Hospital Course 76-year-old female with metastatic breast cancer currently on chemotherapy, who presents for nausea vomiting following A-port placement this morning. Nausea and vomiting - ? Self-limited gastroenteritis? ?UTI? vs ?PNA? vs. ? Side effect of chemotherapy? - Blood cultures are pending - Urinalysis with reflex culture indicated - IV Zofran 4 mg every 4 when necessary - Patient does not appear clinically dehydrated. Labs do not suggest biochemical dehydration Start patient on gentle hydration with maintenance fluid, NSS 125 mL/hour -Discharged pt home following day, no further fevers, likely from chemo vs cancer, f/u with Dr Barragan and Dr Tena Aspiration pneumonia - Patient has crackles at the right base - Hypoxic on arrival - Chest x-ray reported negative for acute process, but would consider an underlying pneumonia due to background of possible immunosuppression - I strongly recommended to the patient and antibiotic treatment at least until the Pleurx catheter can be drained and a repeat chest x-ray couldn't rule out a superimposing pneumonia The patient refuses antibiotic treatment at this time stating "I want as little as done as possible, until I speak to Dr. Barragan and Dr. Tena" Patient was counseled on the risks of not having IV antibiotic treatment in case there was an underlying infection, particularly worsening of infection and prolonged hospital course, along with risk of septicemia and ultimately if untreated Patient agrees to risks and continues to refuse empiric IV antibiotics until discussed with Dr. Barragan Chronic metastatic right-sided pleural effusion - Pleurx catheter in place, draining every 2 days by home nurse - Last drainage was 2 days ago - Patient was hypoxic on arrival, maintaining saturations on 2 L by nasal cannula - I recommended the patient have effusion drained. Patient is uncomfortable having a floor nurse drain the Pleurx and as such is requesting Dr. Tena be consulted to drain Pleurx at the bedside - I have placed orders for nursing to drain the Pleurx catheter if patient will allow If patient refuses, it is okay to defer to CT surgery as long as the patient' s oxygen saturations can be maintained on nasal cannula If patient desaturates, without improvement from supplemental oxygen, Pleurx catheter will need to be drained emergently - CT surgery consulted Metastatic breast cancer - Follows with Dr. Brooks - Dr. Barragan consulted to be consulted to determine whether her presentation main fact be secondary effect of her chemotherapy and if so any recommendations for regarding her treatment Ankylosing spondylitis - Patient takes Methotrexate every Monday; continue in hospital if needed Hypertension - Continue triamterene/hydrochlorothiazide - Continue lisinopril - Continue clonidine Constipation - Colace ordered for patient, she notes this helps with constipation - Milk of Magnesia ordered DVT prophylaxis - SCD - Teds - Will hold off on pharmacological anticoagulation, at least until tomorrow as patient has just had a procedure this morning - She would be moderate to high risk for DVT/PE given metastatic malignancy, so I would start her on pharmacological prophylaxis as soon as tolerated CODE STATUS - Level V DO NOT RESUSCITATE - She designates her daughter Kristi Caban, as substitute decision-maker if she cannot make decisions for herself Total Time Spent: Greater than 30 minutes This includes examination of the patient, discharge planning, medication reconciliation, and communication with other providers. Discharge Instructions Please refer to the electronic Patient Visit Report (Discharge Instructions) for additional information. Additional Copies To Ernesto Becker M.D.
[2016-08-30] MEDS ORDERED: METHOTREXATE 2.5 MG TAB PO SCH (09:00)
== END 2016-08-25 10:14 | disposition home or self-care (01) ==
LOC: ENRESERVDT → ENRESERVTM → C.EDB 16:57 → C.4E 19:58 → EDBEDREQSVC 20:14
PROVIDERS: ADMIT Student in an Organized Health Care Education/Training Program; ATTEND Hospitalist
DX: J69.0 Pneumonitis due to inhalation of food and vomit (principal); R11.2 Nausea with vomiting, unspecified; R50.9 Fever, unspecified; C50.912 Malignant neoplasm of unspecified site of left female breast; J91.0 Malignant pleural effusion; K59.00 Constipation, unspecified; K21.9 Gastro-esophageal reflux disease without esophagitis; M45.9 Ankylosing spondylitis of unspecified sites in spine; I10 Essential (primary) hypertension; N25.81 Secondary hyperparathyroidism of renal origin; Z79.52 Long term (current) use of systemic steroids; Z90.12 Acquired absence of left breast and nipple; Z87.891 Personal history of nicotine dependence; Z90.710 Acquired absence of both cervix and uterus; Z79.899 Other long term (current) drug therapy; Z66 Do not resuscitate; Z82.49 Family history of ischemic heart disease and other diseases of the circulatory system; C79.81 Secondary malignant neoplasm of breast; E66.9 Obesity, unspecified; Z68.35 Body mass index [BMI] 35.0-35.9, adult; Z90.10 Acquired absence of unspecified breast and nipple; Z96.653 Presence of artificial knee joint, bilateral; Z98.41 Cataract extraction status, right eye; Z98.42 Cataract extraction status, left eye

== ENCOUNTER → 2016-09-04 | Outpatient (CLI) | payer BC ==
[~2016-09-04] MED LIST changes: +CALC-388 PO; -CALC500C70 PO; +CRD200 PO; +CTP/1 PO; +DOCU-94 PO; -METO25TA3 PO; -MULT-506 PO; +XRL20 PO
== END | disposition home or self-care (01) ==
LOC: C.LABSPEC 12:09
PROVIDERS: ATTEND Internal Medicine
DX: I31.3 Pericardial effusion (noninflammatory) (principal)

== ENCOUNTER → 2016-09-22 | Outpatient (CLI) | payer BC ==
--- NOTE | 2016-09-22 12:12 | DIAGNOSTIC IMAGING REPORT ---
CHEST 2 VIEWS ROUTINE HISTORY: I31.3 Pericardial [id number] COMPARISON: Chest 08/24/2016. FINDINGS: No pneumothorax. Right subclavian Port-A-Cath terminates in the distal SVC. The heart remains mildly enlarged. Small bilateral pleural effusions persist. Pulmonary gastric congestion has improved. There are surgical clips within the left axilla. Patchy bibasilar densities persist. Stable right midlung zone density which may represent fluid within the minor fissure. IMPRESSION: 1. Improved interstitial thickening/edema. 2. Small bilateral pleural effusions and bibasilar densities persist. 3. Stable cardiomegaly. Electronically signed by: Reynold Winn M.D. 09/22/2016 12:11 PM Dictated Date/Time: 09/22/2016 12:07 PM
== END | disposition home or self-care (01) ==
LOC: C.RAD1850 11:53
PROVIDERS: ATTEND Surgery
DX: I31.3 Pericardial effusion (noninflammatory) (principal)

== ENCOUNTER → 2016-10-11 | Outpatient (CLI) | payer BC ==
[~2016-10-11] MED LIST changes: +DENOINJ SC; +FMR25 PO; +METO25TA56 PO; +RIVA1TAB4 PO; +TRIA37.5 PO
--- NOTE | 2016-10-11 11:29 | DIAGNOSTIC IMAGING REPORT ---
TWO VIEW CHEST CLINICAL HISTORY: Pericardial effusion. FINDINGS: PA and lateral chest radiographs are compared to study dated 09/22/2016. A right subclavian central venous infusion port is unchanged in position. The cardiac silhouette is enlarged and there is atherosclerotic calcification of the thoracic aorta. The pulmonary vasculature is noncongested. Chronic interstitial thickening is observed. Linear atelectasis versus scarring is again noted in the right midlung. Small pleural effusions are identified and there are bibasilar airspace opacities. There is no pneumothorax. The skeletal structures are osteopenic. Degenerative change is present throughout the thoracic spine. Surgical clips are present in the left axilla. IMPRESSION: 1. Cardiomegaly without radiographic evidence of congestive failure. 2. Small pleural effusions and bibasilar airspace opacities are similar to previous. Electronically signed by: Luigi Leon M.D. 10/11/2016 11:27 AM Dictated Date/Time: 10/11/2016 11:25 AM
== END | disposition home or self-care (01) ==
LOC: C.RAD1850 10:22
PROVIDERS: ATTEND Physician Assistant
DX: I31.3 Pericardial effusion (noninflammatory) (principal); I51.7 Cardiomegaly; J90 Pleural effusion, not elsewhere classified

== ENCOUNTER 2016-10-14 08:08 | Inpatient (IN) | payer BC, OTHER ==
[~2016-10-14] VITALS: Ht 165.1 cm; Wt 92.1 kg
[2016-10-14] VITALS (10 sets, daily range): BP systolic 81–133; BP diastolic 44–71; PULSE 56–69; TEMP 36.4–37.1; O2SAT 94–98; Ht 165.1 cm; Wt 92.1 kg
[~2016-10-14 08:08] MED LIST changes: -CRD200 PO; -DENOINJ SC; -DOCU-94 PO; -FMR25 PO; -METO25TA56 PO; -RIVA1TAB4 PO; -TRAM-10 PO; -TRIA37.5 PO; -XRL20 PO
[2016-10-14] MEDS ORDERED: TRAM-10 PO (08:39)
[2016-10-14] MEDS ORDERED: DOCU-94 PO (08:39)
[2016-10-14] MEDS ORDERED: NURSING VERBAL MED ORDER ONE ×2 (10:15→10:30)
[2016-10-14] MEDS ORDERED: TRAMADOL HCL 50 MG TAB ONE (10:28)
[2016-10-14] MEDS ORDERED: TALC 6 GM/PKT EXT ONE (11:00)
--- NOTE | 2016-10-14 11:06 | Discharge Instructions ---
Discharge Instructions Date of Service Oct 14, 2016. Visit Reason for Visit: Breast Cancer -Talc Pleurodesis Discharge Discharge Diagnosis / Problem: alc Pleurodesis Discharge Goals Goal(s): Decrease discomfort, Increase independence Activity Recommendations Activity Limitations: resume your previous activity Lifting Limitations: none Anesthesia . Post Anesthesia Instructions: If you have had General Anesthesia or IV Sedation: * Do not drive today. * Resume driving when surgeon permits. * Do not make important decisions or sign legal documents today. * Call surgeon for: 1. Temperature elevations greater than 101 degrees F. 2. Uncontrollable pain. 3. Excessive bleeding. 4. Persistent nausea and vomiting. 5. Medication intolerance (nausea, vomiting or rash). * For nausea and vomiting use only clear liquids such as: tea, soda, bouillon until nausea subsides, then gradually increase diet as tolerated. * If you have any concerns or questions, call your surgeon's office. If physician is unavailable and it is an emergency, call 911 or go to the nearest emergency room. . Instructions / Follow-Up Instructions / Follow-Up 1. Keep your scheduled appointment with Dr. Tena on October 18, 2016 @ 2:30. You will need a chest x-ray prior to this appointment. 2. Report to the Emergency Department at [facility] on October 15 at 8:[address] Tena when you arrive and he will drain your catheter and consider removing it if the the drainage amount is acceptable. 3. You may experience aches, chills, and fevers--this is the result of the talc. You may take ultram or tylenol for pain or discomfort. Call physician if your fever exceeds 101.5. Diet Recommendations Recommended Home Diet: resume previous diet Pending Studies Studies pending at discharge: no Medical Emergencies . Who to Call and When: Medical Emergencies: If at any time you feel your situation is an emergency, please call 911 immediately. . Non-Emergent Contact Non-Emergency issues call your: Surgeon Call Non-Emergent contact if: temperature is above 101.5 . . "Provider Documentation" section prepared by Karl Crain.
--- NOTE | 2016-10-14 12:18 | History and Physical ---
History & Physical Date of Service Oct 14, 2016. History & Physical H & P Dictated #[id number]
[2016-10-14] MEDS ORDERED: ONDANSETRON INJ 2 MG/ML 2 ML VIAL IV PRN (12:30)
[2016-10-14] MEDS ORDERED: ONDANSETRON INJ 2 MG/ML 2 ML VIAL ONE (12:39)
--- NOTE | 2016-10-14 12:46 | HISTORY & PHYSICAL EXAMINATION ---
DATE OF ADMISSION: 10/14/2016 CHIEF COMPLAINT: Nausea and vomiting. HISTORY OF PRESENT ILLNESS: This is a very pleasant 76-year-old female, well known to our service. The patient is known to our service as she has had a previous left video-assisted thoracoscopy with drainage of pericardial effusion as well as placement of PleurX catheter on July 25 of this year. The patient has since been discharged home and we have been following her PleurX catheter on an outpatient basis. During the patient's most recent office visit, it was determined that the patient's PleurX catheter drainage was such a sclerosing process. We had talked pleurisy that was to be attempted and she presented to the ambulatory staging unit today for this issue. Earlier today, the patient had a PleurX catheter drained and then approximately 6 grams of talc was instilled using 60 mL of sterile water. Following the procedure, the patient had significant back pain. She recovered nicely from this issue; however, shortly after, the patient went to sit up and she became lightheaded and diaphoretic and she had some significant nausea and vomiting. Due to this condition, it was felt that it would be best if the patient would be admitted to the hospital. I revisited the patient in the ambulatory stage unit and her previous complaints other than some lightheadedness had resolved. The patient does have a history of breast cancer and appears somewhat weak and dehydrated. She was also noted to be hypotensive, so we elected to admit the patient to the hospital. Since arrival to the hospital, she has not had any falls or loss of consciousness. She denies any blurred vision. No tinnitus was reported. No neck pain or chest pain is noted. She did note some pain in her left arm that has resolved spontaneously. She is currently not short of breath. No abdominal pain is noted, but she does have nausea, vomiting and experienced some emesis. No dysuria is noted. The patient has no history of stroke and there has been no witnessed seizure activity. The patient's most recent labs performed by her oncology team were reviewed, were from 2 days ago on October 12 and her hemoglobin, hematocrit, platelet count and white blood cell count were all noted to be normal. Sodium and potassium were noted to be normal. Her BUN and creatinine were elevated at 25 and 1.4. The patient notes that her most recent chemotherapy session was held due to these labs. PAST MEDICAL HISTORY: Includes the followin. Breast cancer. 2. History of metastatic pericardial effusion. 3. Hypertension. 4. Osteopenia. 5. Ankylosing spondylitis. 6. Secondary hyperparathyroidism. 7. GERD. 8. Moderate aortic stenosis. 9. History of cardiomyopathy with a 40% ejection fraction. It should be noted that her most recent dobutamine stress echo was in December of 2015, which was negative for myocardial ischemia. PAST SURGICAL HISTORY: Includes, 1. Left thyroid lobectomy. 2. History of left mastectomy. 3. Left PleurX catheter via left VATs along with a pericardial window at the same time. 4. A-port placement. 5. Talc pleurodesis performed today. ALLERGIES: INCLUDE BENADRYL. OUTPATIENT MEDICATION REGIMEN: Includes the followin. Calcium with vitamin D daily. 2. Vitamin D 2000 units daily. 3. Catapres 0.1 mg twice daily as needed. 4. Colace 100 mg twice daily. 5. Folic acid 1 mg daily. 6. Lisinopril 40 mg daily. 7. Methotrexate 2.5 mg on Tuesdays. 8. Zofran as needed for nausea. 9. Prednisone 4 mg daily. 10. Carbamazepine 10 mg every 6 hours as needed for nausea and vomiting. 11. Ranitidine 150 mg daily. 12. Ultram 50 mg every 8 hours as needed for pain. 13. Triamterene/HCTZ 37.5/25 tablet every other day. SOCIAL HISTORY: She is a former smoker. FAMILY HISTORY: Positive for valvular heart disease. REVIEW OF SYSTEMS: As described above. PHYSICAL EXAMINATION: VITAL SIGNS: The patient is afebrile with temperature 36.8, pulse 63 and regular, respirations are 20 and unlabored, blood pressure is 85/64, and pulse ox 96% on room air. SKIN: Warm with good turgor. GENERAL: She is alert. She is oriented x3. She is not in any distress at this time. HEENT: Head is atraumatic and normocephalic. EYES: Pupils equal, round and reactive to light and accommodation. Extraocular motions are intact. EARS: Auditory acuity is grossly intact. NOSE: Nasal patency was intact. Sinuses are nontender. MOUTH: Has dry mucous membranes. NECK: Supple. There is no tracheal shift or stridor. CARDIOVASCULAR: Regular rate and rhythm. LUNGS: Revealed no rales, rhonchi or wheezing. She was not using accessory muscles. She had breath sounds noted bilaterally. ABDOMEN: Rotund, soft and nonpainful to palpation. EXTREMITIES: Revealed the patient to have significant lymphedema in the left upper extremity. There is no edema noted in the right extremity. Her lower extremities exhibited trace lower extremity edema. NEUROLOGIC: Revealed cranial nerves II through XII are grossly intact. No focal deficits are noted. IMPRESSION: A 76-year-old female with a history of breast cancer with nausea, vomiting and lightheadedness. PLAN: Due to these symptoms that the patient exhibited following her talc pleurodesis, we will admit the patient to the hospital. She does appear to be clinically dehydrated. We will therefore admit her to the hospital. We will check some repeat labs. We will hydrate her with IV fluids, antiemetics will be provided and analgesics will be provided. Due to left arm pain that the patient exhibited, we will check a baseline EKG with appropriate interventions to follow thereafter. Concerning her recent talc pleurodesis, we will reassess this tomorrow while draining her PleurX and if the drainage is acceptable, we will consider removing the PleurX tomorrow. The patient does have a history of hypertension. As she is hypotensive at this time, we will hold her hypertensive medications, particularly her diuretic and monitor her clinical response and reinitiate her medicines as indicated. We will place the patient on Lovenox for DVT prevention. I discussed with the patient and her daughter at bedside a code status and she is a level 5, do not resuscitate.
[2016-10-14 14:34] LABS: BASO % 0.1 %; BASO ABS # 0.01 K/uL (0-0.2); COMPLETE YES; EOS % 0.4 %; HEMATOCRIT 38.8 % (37-47); IG% 0.2 %; LYMPH % 13.5 %; LYMPH ABS # 1.13 K/uL (1.2-3.4); MEAN CELL VOLUME 98.5 fL (80-100); MEAN CORPUSCULAR HGB CONC 32.5 g/dl (32-36); MEAN PLATELET VOLUME 10.7 fL (7.4-10.4); MONO % 6.8 %; PLATELET COUNT 241 K/uL (130-400); RED BLOOD COUNT 3.94 M/uL (4.2-5.4); WHITE BLOOD COUNT 8.34 K/uL (4.8-10.8)
[2016-10-14] MEDS: SODIUM CHLORIDE 0.9% 1000ML 1,000 ML IV SCH ×2 (15:05→22:48)
[2016-10-14 15:07] LABS: BUN/CREATININE RATIO 16.1 (10-20); CALCIUM 8.7 mg/dl (8.5-10.1); CREATININE 1.2 mg/dl (0.60-1.20); MAGNESIUM 2.1 mg/dl (1.8-2.4); POTASSIUM 3.9 mmol/L (3.5-5.1)
[2016-10-14] MEDS: TRAMADOL HCL 50 MG TAB PO PRN ×2 (15:13→23:45)
--- NOTE | 2016-10-14 15:57 | DIAGNOSTIC IMAGING REPORT ---
CHEST ONE VIEW PORTABLE HISTORY: s/p talc pleurodesis COMPARISON: Chest 10/11/2016. FINDINGS: Right subclavian Port-A-Cath terminus in the distal SVC. The heart remains mildly enlarged. No pneumothorax. Small bilateral pleural effusions have slightly progressed. The right midlung zone linear density remains unchanged. Stable mild right pleural thickening. Linear density within the left midlung zone favors atelectasis. This is also unchanged. Surgical clips within the left axilla. No evidence for pulmonary edema. The bibasilar densities have slightly progressed. IMPRESSION: 1. Slight increase in size in the small bilateral pleural effusions and bibasilar densities. 2. Stable cardiomegaly. Electronically signed by: Reynold Winn M.D. 10/14/2016 3:55 PM Dictated Date/Time: 10/14/2016 3:53 PM
--- NOTE | 2016-10-14 16:29 | HISTORY & PHYSICAL EXAMINATION ---
DATE OF ADMISSION: 10/14/2016 HISTORY OF PRESENT ILLNESS: Ms. Caban has a right pleural catheter which is in place since July. We have been draining pleural fluid for malignant effusion from breast cancer. It had gotten to the point where we felt we could sclerose her and brought her in today on 10/14/2016 and instilled 5 grams of talc and 60 mL of normal saline. She had an extreme amount of pain with this. Also, she became a bit more hypoxic. She then developed nausea and vomiting and became lightheaded. After extended period of time in the resident care director unit, I elected to admit her. By the time she was seen a few hours later, she looked better, but I am still concerned about her. Her x-ray showed no evidence of acute lung injury or ARDS. She has a very little in the way of pleural effusion on the right, although she has one on the left is a little larger. If her x-ray looks good tomorrow, we will pull her PleurX catheter and let her go home. [id number]
[2016-10-14] MEDS: ACETAMINOPHEN 325 MG TAB PO PRN (19:29)
[2016-10-14] MEDS: DOCUSATE SODIUM 100 MG CAP PO SCH (21:30)
[2016-10-14] MEDS: ENOXAPARIN 30 MG/0.3 ML SYR SC SCH (21:32)
[2016-10-15] VITALS (11 sets, daily range): BP systolic 107–129; BP diastolic 60–82; PULSE 74–92; TEMP 36.7–37.1; O2SAT 90–95
[2016-10-15] MEDS: ACETAMINOPHEN 325 MG TAB PO PRN ×3 (03:55→22:00)
[2016-10-15] MEDS: TRAMADOL HCL 50 MG TAB PO PRN ×2 (07:24→16:28)
[2016-10-15] MEDS: MoRPHine SULFATE 2 MG/ML CARP IV PRN ×2 (08:26→12:46)
[2016-10-15] MEDS: SODIUM CHLORIDE 0.9% 1000ML 1,000 ML IV SCH (08:27)
[2016-10-15] MEDS ORDERED: ONDANSETRON 8 MG/54 ML D5W IV ONE (08:30)
[2016-10-15] MEDS ORDERED: LIDOCAINE HCL 1% 20 ML VIAL ONE (08:41)
[2016-10-15] MEDS ORDERED: ONDANSETRON INJ 8 MG in DEXTROSE 5% 50ML 50 ML IV SCH (08:45)
[2016-10-15] MEDS ORDERED: ONDANSETRON 8 MG/54 ML D5W IV PRN (09:00)
--- NOTE | 2016-10-15 09:23 | SURGERY PROGRESS NOTE ---
DATE: 10/15/2016 DATE: 10/15/2016. Ms. Caban is seen today. She had pain overnight with the talc. Her maximal temperature is 37.1. Her vital signs have been stable. Her saturations are 94% on 2 liters. I drained her for about 150 mL of a yellow fluid removed from her PleurX catheter this morning. She tolerated it well. Her site was clean. She still is in a considerable amount of pain and is requiring oxygen which she did not at home. I am going to keep her 1 more day and admit her as a full admission, as she is concerning to me with her chest pain which was precipitated by the talc confusion. She is going to require parenteral narcotics and antiemetics.
--- NOTE | 2016-10-15 09:29 | OPERATIVE REPORT ---
DATE OF OPERATION: 10/15/2016 PROCEDURE NOTE: PROCEDURE: Removal of right PleurX catheter. SURGEON: Dr. Tena. ANESTHESIA: Local. SPECIFICS OF PROCEDURE: With the patient in a left lateral decubitus position, right chest was evaluated and prepped with alcohol. The suture was cut and removed. I then used a forceps and scissors to remove the adhesions to the fibrous cuff. After draining her for about 150 mL of fluid I then removed her PleurX catheter. Antimicrobial dressing was placed. She tolerated it well. I attest to the content of the Intraoperative Record and any orders documented therein. Any exceptio ns are noted below.
--- NOTE | 2016-10-15 09:40 | DIAGNOSTIC IMAGING REPORT ---
CHEST 2 VIEWS ROUTINE HISTORY: s/p pleurx removal COMPARISON: Chest 10/14/2016. FINDINGS: No pneumothorax. Small bilateral pleural effusions and bibasilar densities. The heart remains mildly enlarged. Right subclavian Port-A-Cath terminates in the distal SVC. Left axillary surgical clips. Increased density within the right lung base. IMPRESSION: 1. No pneumothorax. 2. Small bilateral pleural effusions persist. 3. Increased density within the right lung base. Electronically signed by: Reynold Winn M.D. 10/15/2016 9:37 AM Dictated Date/Time: 10/15/2016 9:36 AM
[2016-10-15] MEDS: RANITIDINE HCL 150 MG TAB PO SCH (09:58)
[2016-10-15] MEDS: PROCHLORPERAZINE MALEATE 10 MG TAB PO PRN (09:58)
[2016-10-15] MEDS: CALCIUM 600MG + VIT D 400 IU TAB PO SCH (09:59)
[2016-10-15] MEDS: DOCUSATE SODIUM 100 MG CAP PO SCH ×2 (10:00→21:29)
[2016-10-15] MEDS: CHOLECALCIFEROL 1000 INTER.UNIT TAB PO SCH (10:00)
[2016-10-15] MEDS ORDERED: NURSING DECISION MEDICATION ORDER SCH (12:00)
[2016-10-15] MEDS: ONDANSETRON INJ 8 MG in DEXTROSE 5% 50ML 50 ML IV PRN ×2 (12:09→16:28)
[2016-10-15] MEDS ORDERED: ONDANSETRON INJ 8 MG in DEXTROSE 5% 50ML 50 ML IV PRN (12:15)
[2016-10-15] MEDS: ENOXAPARIN 30 MG/0.3 ML SYR SC SCH (21:00)
[2016-10-16] VITALS (9 sets, daily range): BP systolic 115–162; BP diastolic 60–82; PULSE 73–95; TEMP 36.7–37.1; O2SAT 78–97
[2016-10-16] MEDS: TRAMADOL HCL 50 MG TAB PO PRN ×3 (00:15→21:53)
[2016-10-16] MEDS: CHOLECALCIFEROL 1000 INTER.UNIT TAB PO SCH (08:24)
[2016-10-16] MEDS: RANITIDINE HCL 150 MG TAB PO SCH (08:25)
[2016-10-16] MEDS: CALCIUM 600MG + VIT D 400 IU TAB PO SCH (08:25)
[2016-10-16] MEDS: DOCUSATE SODIUM 100 MG CAP PO SCH ×2 (10:13→19:39)
--- NOTE | 2016-10-16 10:24 | SURGERY PROGRESS NOTE ---
DATE: 10/16/2016 Ms. Caban seen today. She has now been in the hospital for 2 days. She is requiring oxygen, which she did not require before. She does have decreased breath sounds in the right base. I am concerned about her. I am going to keep her in the hospital another day and as her pain is still not well controlled even with parenteral narcotics. I am going to check her chest x-ray tomorrow. Her dressings are dry. I was a bit surprised how decreased her breath sounds in the right base posteriorly are. She is moving air much better anteriorly. We will see how her x-ray looks in the morning and hopefully will be able to discharge her. ISIDRA
[2016-10-16] MEDS: ENOXAPARIN 30 MG/0.3 ML SYR SC SCH (19:38)
[2016-10-16] MEDS: ONDANSETRON INJ 8 MG in DEXTROSE 5% 50ML 50 ML IV PRN (21:23)
[2016-10-17] MEDS: TRAMADOL HCL 50 MG TAB PO PRN ×2 (06:37→15:48)
[2016-10-17] MEDS: PROCHLORPERAZINE MALEATE 10 MG TAB PO PRN (06:38)
[2016-10-17 07:03] VITALS: BP 121/76; PULSE 75; TEMP 37; O2SAT 96
[2016-10-17] MEDS: DOCUSATE SODIUM 100 MG CAP PO SCH (08:35)
[2016-10-17] MEDS: CHOLECALCIFEROL 1000 INTER.UNIT TAB PO SCH (08:35)
[2016-10-17] MEDS: CALCIUM 600MG + VIT D 400 IU TAB PO SCH (08:36)
[2016-10-17] MEDS: RANITIDINE HCL 150 MG TAB PO SCH (08:36)
--- NOTE | 2016-10-17 09:33 | DIAGNOSTIC IMAGING REPORT ---
CHEST ONE VIEW PORTABLE HISTORY: s/p pleurodesis COMPARISON: Chest 10/15/2016. FINDINGS: No pneumothorax. Left axillary surgical clips. The heart remains mildly enlarged. Small bilateral pleural effusions have progressed. Bibasilar densities are again noted. There is slight progression of the mild interstitial pulmonary edema. IMPRESSION: 1. Slight progression of the mild interstitial pulmonary edema and small bilateral pleural effusions. 2. No pneumothorax. 3. Bibasilar densities persist. Electronically signed by: Reynold Winn M.D. 10/17/2016 9:31 AM Dictated Date/Time: 10/17/2016 9:30 AM
--- NOTE | 2016-10-17 10:51 | Discharge Instructions ---
Discharge Instructions Date of Service Oct 17, 2016. Admission Reason for Admission: Breast Cancer -Talc Pleurodesis Discharge Discharge Diagnosis / Problem: Breast Cancer -Talc Pleurodesis Discharge Goals Goal(s): Increase independence Activity Recommendations Activity Limitations: resume your previous activity Lifting Limitations: none . Instructions / Follow-Up Instructions / Follow-Up 1. Your appointment with Dr. Tena on October 18 has been canceled. His office will call you to re-schedule the appointment. You will need a chest x- ray prior to your appointment. 2. Yo may shower, but no tub baths. 3. Use oxygen with activity. Current Hospital Diet Patient's current hospital diet: Regular Diet Discharge Diet Recommended Diet: Regular Diet Procedures Procedures Performed: Bedside talc pleurodesis Pending Studies Studies pending at discharge: no Medical Emergencies . Who to Call and When: Medical Emergencies: If at any time you feel your situation is an emergency, please call 911 immediately. . Non-Emergent Contact Non-Emergency issues call your: Surgeon Call Non-Emergent contact if: temperature is above 101.5, your pain is not controlled, your pain is worsening . "Provider Documentation" section prepared by Karl Crain. VTE Core Measure Inpt VTE Proph given/why not?: Enoxaparin (Lovenox)SQ
--- NOTE | 2016-10-17 14:49 | DISCHARGE SUMMARY ---
DATE OF DISCHARGE: 10/17/2016. DISCHARGE DIAGNOSES: 1. 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 2. Relative hypoxemia after undergoing a talc pleurodesis. 3. Widely metastatic breast cancer. 4. Obesity. HOSPITAL COURSE: Vera Caban is a delightful 76-year-old female who has a history of breast cancer years ago but then had a recurrence and had a malignant right pleural effusion, malignant pericardial effusion. Back in July of this year, I performed a right thoracoscopy and a pericardial window. The PleurX catheter was inserted at that time and we had been using that to drain her effusion but it has gotten less and less over the last few weeks. She really does not have much in the way of accumulation of fluid. She has a tremendous amount of pain when this is drained. After much discussion, we elected to proceed with removal of this catheter. On 10/14/2016 in the care transition mgr unit I drained this catheter and then we placed 5 grams of talc. She had terrible pain with this, became relatively hypoxemic and lightheaded. We watched her for a couple hours in the medical treatment unit and finally elected to admit her. The following morning I was happy with her from a pleural fluid standpoint and removed her PleurX catheter. She still continued to do poorly. She had pain that had to be controlled with parenteral narcotics. She was requiring more oxygen, which she did not require before. This eventually improved and on the morning of 10/17/2016 her pain improved to the point where we could transition her to oral medications. We will continue the Zofran for her. One thing is she is going to have to be on oxygen and we will arrange for that. I will see her back in the office in a week or two with an x-ray.
[2016-10-17 15:19] VITALS: BP 121/76; PULSE 75; TEMP 37; O2SAT 96
[2016-10-18] MEDS ORDERED: METHOTREXATE 2.5 MG TAB PO SCH (09:00)
--- NOTE | 2016-10-20 09:57 | OPERATIVE REPORT ---
DATE OF OPERATION: 10/14/2016 DATE OF PROCEDURE: 10/14/2016. PREOPERATIVE DIAGNOSIS: Instillation of talc for talc pleurodesis for malignant right pleural effusion. SURGEON: Dr. Tena. ROVING INSPECTOR: Peyman Crain PA-C. SPECIFICS OF PROCEDURE: Five grams of talc was reconstituted with 50 mL of normal saline. This had been adequately mixed together in a sterile syringe. The PleurX catheter cap was removed and under sterile conditions this was prepped with alcohol and then 50 mL of talc slurry was injected without difficulty. Unfortunately, she had a tremendous amount of pain with this. We did inject it and clamped it. This should settle down and hopefully we will be able to discharge her today. I attest to the content of the Intraoperative Record and any orders documented therein. Any exceptio ns are noted below.
[2017-05-05] MEDS ORDERED: TRIA37.5 PO (14:45)
[2017-05-05] MEDS ORDERED: METO25TA56 PO (14:45)
[2017-05-05] MEDS ORDERED: DENOINJ SC (14:45)
[2017-05-05] MEDS ORDERED: RIVA1TAB4 PO (14:45)
[2017-05-05] MEDS ORDERED: FMR25 PO (14:45)
== END 2016-10-17 14:00 | disposition home health service (06) | DRG 315 ==
LOC: ENRESERVTM → ENRESERVDT → C.ACU 08:08 → C.2E 12:28 → EDBEDREQ 10-15 09:33 → C.MSN 10-15 10:43
PROVIDERS: ADMIT Surgery; ATTEND Surgery
PROC: 0BPQX0Z Removal of Drainage Device from Pleura, External Approach (ICD-10-PCS; principal; 2016-10-15)
DX: I95.9 Hypotension, unspecified (principal); J91.0 Malignant pleural effusion; I42.9 Cardiomyopathy, unspecified; C79.9 Secondary malignant neoplasm of unspecified site; C50.919 Malignant neoplasm of unspecified site of unspecified female breast; G89.18 Other acute postprocedural pain; R09.02 Hypoxemia; E86.0 Dehydration; I10 Essential (primary) hypertension; M45.9 Ankylosing spondylitis of unspecified sites in spine; K21.9 Gastro-esophageal reflux disease without esophagitis; E21.1 Secondary hyperparathyroidism, not elsewhere classified; M85.80 Other specified disorders of bone density and structure, unspecified site; E66.9 Obesity, unspecified; Z68.33 Body mass index [BMI] 33.0-33.9, adult; Z79.899 Other long term (current) drug therapy; Z79.52 Long term (current) use of systemic steroids; Z79.891 Long term (current) use of opiate analgesic; I31.3 Pericardial effusion (noninflammatory); I51.7 Cardiomegaly; J90 Pleural effusion, not elsewhere classified

== ENCOUNTER → 2016-10-25 | Outpatient (CLI) | payer BC, OTHER ==
[~2016-10-25] MED LIST changes: +CRD200 PO; +DENOINJ SC; +DOCU-94 PO; +FMR25 PO; +METO25TA56 PO; +RIVA1TAB4 PO; +TRAM-10 PO; +TRIA37.5 PO; +XRL20 PO
--- NOTE | 2016-10-25 13:21 | DIAGNOSTIC IMAGING REPORT ---
CHEST 2 VIEWS ROUTINE HISTORY: I31.3 Pericardial [id number] History of breast [id number] COMPARISON: Chest 10/17/2016. FINDINGS: Mild interstitial pulmonary edema is again noted. No pneumothorax. Bilateral pleural effusions and bibasilar densities persist. The heart remains mildly enlarged. Right subclavian catheter terminates in the SVC. Surgical clips within the left axilla. IMPRESSION: No change in the mild interstitial pulmonary edema, small bilateral pleural effusions, and bibasilar densities. Electronically signed by: Reynold Winn M.D. 10/25/2016 1:18 PM Dictated Date/Time: 10/25/2016 1:17 PM
== END | disposition home or self-care (01) ==
LOC: C.RAD1850 12:54
PROVIDERS: ATTEND Surgery
DX: Z85.3 Personal history of malignant neoplasm of breast (principal); I31.3 Pericardial effusion (noninflammatory)

== ENCOUNTER → 2016-11-16 | Outpatient (CLI) | payer BC ==
--- NOTE | 2016-11-16 13:09 | DIAGNOSTIC IMAGING REPORT ---
CT ABD/PELVIS IV AND ORAL CONT CLINICAL HISTORY: Metastatic breast carcinoma COMPARISON STUDY: None. TECHNIQUE: Following the IV administration of 94 mL of Optiray-320, CT scan of the abdomen and pelvis was performed from the lung bases to the proximal femurs. Images are reviewed in the axial, sagittal, and coronal planes. IV contrast was administered without complication. CT DOSE: FINDINGS: Lower chest: There are moderate bilateral pleural effusions. There is dependent hyperdense material within the right pleural space. There are bilateral airspace opacities likely representing compressive atelectasis. Liver: The contrast-enhanced liver is normal in size, contour, and attenuation. There is no intrahepatic biliary ductal dilatation. The hepatic veins and portal veins are patent. Gallbladder: Unremarkable. Spleen: Normal in size and attenuation. Pancreas: Unremarkable. Adrenal glands: Unremarkable. Kidneys: No solid renal masses are visualized. The right kidney is small and demonstrates diminished enhancement. There is dense plaque at right renal artery origin, and renal artery stenosis is suspected. There is a 2 mm nonobstructing lower pole right renal calculus. Bowel: There are no transition zones to indicate bowel obstruction. By history the appendix is absent. There is no acute diverticulitis. Peritoneum: There is no intraperitoneal free air or abdominal ascites. Vasculature: The abdominal aorta is normal in course and caliber. Adenopathy: There is no pathologic adenopathy by size criteria. There are few calcified central mesenteric lymph nodes. Pelvic viscera: The uterus appears surgically absent. Skeletal structures: There are scattered mixed lytic and sclerotic lesions, viewed as suspicious for widespread skeletal metastasis. IMPRESSION: 1. Moderate bilateral pleural effusions 2. Multiple lytic and mixed lytic and blastic skeletal lesions viewed as highly suspicious for skeletal metastasis 3. Small right kidney with diminished enhancement. Right renal artery stenosis is suspected 4. No evidence of hepatic metastasis Electronically signed by: Hernandez Brizuela M.D. 11/16/2016 1:08 PM Dictated Date/Time: 11/16/2016 1:02 PM
--- NOTE | 2016-11-16 13:11 | DIAGNOSTIC IMAGING REPORT ---
CHEST CT WITH CONTRAST CT DOSE: 1194.80 mGy.cm HISTORY: Breast carcinoma HX BREAST CA TECHNIQUE: Multiaxial CT images of the chest were performed following the intravenous administration of contrast. COMPARISON: PET scan 07/18/2016 FINDINGS: Moderate interval decrease in size of a left axillary mass with multiple surrounding surgical clips. Left supraclavicular and left parapharyngeal mass is mildly diminished. Mediastinal and hilar nodes are stable to slightly diminished. Pericardial effusion the prior study. Resolving. There are bilateral pleural effusions slightly increased from the prior study. Bilateral lower lobe atelectatic changes are present. Partial atelectasis medial aspect right middle lobe slightly progressive compared to the prior study. Bony metastatic disease considered generally stable. IMPRESSION: 1. Somewhat mixed findings compared to the prior study. 2. Mild improvement in the patient's left supraclavicular soft tissue mass, left axillary mass, as well as mediastinal adenopathy. 3. Slight increase in volume bilateral pleural effusions with slightly progressive bilateral lower lobe and right middle lobe atelectatic change. 4. Stable diffuse bony metastatic change. Electronically signed by: Rios Love M.D. 11/16/2016 1:10 PM Dictated Date/Time: 11/16/2016 1:02 PM
== END ==
LOC: C.CTS 12:08
PROVIDERS: ATTEND Nurse Practitioner Family
DX: C50.912 Malignant neoplasm of unspecified site of left female breast (principal)

== ENCOUNTER → 2016-12-05 | Outpatient (CLI) | payer BC ==
--- NOTE | 2016-12-05 10:34 | DIAGNOSTIC IMAGING REPORT ---
CHEST 2 VIEWS ROUTINE CLINICAL HISTORY: C50.919 Breast [id number] COMPARISON STUDY: 10/25/2016 FINDINGS: The heart remains enlarged. There are persistent bilateral pleural effusions. There is thickening of the minor fissure. Surgical clips project over the left axillary region. A right-sided A-Port catheter is again visualized. There are bibasilar opacities, similar to the prior study, and likely atelectatic.[ IMPRESSION: 1. Cardiomegaly and persistent bilateral pleural effusions 2. Persistent bibasilar opacities, likely atelectatic. Electronically signed by: Hernandez Brizuela M.D. 12/05/2016 10:33 AM Dictated Date/Time: 12/05/2016 10:32 AM
== END | disposition home or self-care (01) ==
LOC: C.RAD1850 10:13
PROVIDERS: ATTEND Surgery
DX: C50.919 Malignant neoplasm of unspecified site of unspecified female breast (principal); I51.7 Cardiomegaly; J90 Pleural effusion, not elsewhere classified

== ENCOUNTER 2016-12-06 18:11 | Inpatient (IN) | payer BC, OTHER ==
[~2016-12-06] VITALS: Ht 165.1 cm; Wt 86.6 kg
[~2016-12-06 18:11] MED LIST changes: -CRD200 PO; -DENOINJ SC; -FMR25 PO; -METO25TA56 PO; -RIVA1TAB4 PO; -TRIA37.5 PO; -XRL20 PO
--- NOTE | 2016-12-06 19:37 | EMERGENCY ROOM VISIT NOTE ---
History Report prepared by Jewel: Madhuri Raygoza Under the Supervision of: Dr. Ian Walker M.D. First contact with patient: 18:47 Chief Complaint: RESPIRATORY PROBLEMS Stated Complaint: TROUBLE BREATHING Nursing Triage Summary: Pt states she had chemo this afternoon and then later while her daughter was visiting she felt her heart palpitation and then realized she was having a hard time breathing. History of the same. Pleurix catheter placed, but removed a month ago. Breast Ca. Lymphedema in left arm. History of Present Illness The patient is a 76 year old female who presents to the Emergency Room with complaints of sudden trouble with breathing. The patient reports that she had chemotherapy for breast cancer earlier today. When she got home, she was talking on the phone and felt sudden chest congestion. She states that her face turned red, she felt short of breath, and had a dry mouth. The patient is on Oxygen at home. She reports feeling less short of breath now than when she came in, but still feels pressure in her chest. The patient is not on any blood thinners. Source of History: patient Onset: this afternoon Position: chest Quality: other (trouble with breathing ) Timing: other (sudden) Associated Symptoms: + SOB Note: additional symptoms: face turned red, dry mouth Review of Systems See HPI for pertinent positives & negatives. A total of 10 systems reviewed and were otherwise negative. Past Medical & Surgical Medical Problems: (1) Ankylosing spondylitis (2) Aortic stenosis (3) Atrial fibrillation (4) Breast cancer (5) Difficulty breathing (6) Gastroesophageal reflux disease (7) Hyperparathyroidism (8) Hypertension (9) Metastatic breast cancer (10) Osteopenia (11) Pericardial effusion (12) Vomiting Surgical Problems: (1) H/O mastectomy (2) S/P hysterectomy Family History Patient reports no known family medical history. No pertinent family history stated. Social History Smoking Status: Former Smoker Drug Use: none Marital Status: Occupation Status: retired Current/Historical Medications Scheduled Calcium Carbonate-Vitamin D (Calcium + D3 600-200 mg-Unit), 1 TAB PO QAM Cholecalciferol (Vitamin D), 2,000 UNIT PO QAM Docusate Sodium (Colace), 1 CAP PO BID Folic Acid (Folvite), 1 MG PO QAM Lisinopril (Zestril), 40 MG PO QAM Methotrexate (Methotrexate), 2.5 MG PO Monday Prednisone (Prednisone), 4 MG PO QAM Ranitidine (Zantac), 150 MG PO QAM Triamterene/Hctz (Triamterene/Hctz 37.5-25MG), 1 TAB PO Q2D Scheduled PRN Clonidine Hcl (Catapres), 0.1 MG PO BID PRN for PRN Ondansetron Hcl (Zofran), 8 MG PO Q8 PRN for Nausea Prochlorperazine Maleate (Compazine), 1 TAB PO Q6 PRN for Nausea or Vomiting Tramadol (Ultram), 50 MG PO Q8H PRN for Pain Allergies Coded Allergies: Diphenhydramine (Verified Adverse Reaction, Mild, hyperactive, 12/06/16) POOR TOLERANCE OF BENADRYL; becomes hyper Physical Exam Vital Signs Date Time Temp Pulse Resp B/P (MAP) Pulse Ox O2 Delivery O2 Flow Rate FiO2 12/06/16 20:18 76 36 152/86 98 Nasal Cannula 3.0 12/06/16 19:09 85 12/06/16 18:33 98 Nasal Cannula 3.0 12/06/16 18:32 142/84 12/06/16 18:20 36.6 95 19 100 Room Air Physical Exam GENERAL: Patient is elderly appearing, and chronically unwell appearing. HEENT: No acute trauma, normocephalic atraumatic, mucous membranes moist, no nasal congestion, no scleral icterus. NECK: No stridor, no adenopathy, no meningismus, trachea is midline. LUNGS: Mildly dyspneic. Decreased breath sounds bilaterally. Lower lobes with mild crackles. No wheezing appreciated. HEART: Irregular heart rate. No murmurs, rubs, gallops appreciated. ABDOMEN: Soft, nontender, bowel sounds positive, no masses appreciated, no peritonitis. BACK: No midline tenderness, no CVA tenderness EXTREMITIES: Normal motion all extremities, no cyanosis, no edema. NEUROLOGIC: Alert and oriented, no acute motor or sensory deficits, no focal weakness, cranial nerves grossly intact. SKIN: No rash, no jaundice, no diaphoresis. Medical Decision & Procedures ER Provider Diagnostic Interpretation: X ray results are stated below per my interpretation and the radiologist's interpretation. SINGLE VIEW CHEST CLINICAL HISTORY: Atypical chest pain. FINDINGS: An AP, portable, upright chest radiograph is compared to study dated 12/05/2016 and correlated with chest CT dated 11/16/2016. The examination is degraded by portable technique and patient rotation. A right subclavian central venous infusion port is unchanged in position. The heart is enlarged and there is atherosclerotic calcification of the thoracic aorta. The pulmonary vasculature is noncongested. Chronic interstitial thickening is observed. Foci of linear scarring are again seen in both lungs. Layering pleural effusions with bibasilar consolidation is unchanged from yesterday. There is no pneumothorax. The skeletal structures are osteopenic. Degenerative change is present throughout the thoracic spine. Surgical clips are present in the left axilla. IMPRESSION: 1. Cardiomegaly without radiographic evidence of congestive failure. 2. Layering pleural effusions with bibasilar consolidation. This is unchanged from yesterday. Electronically signed by: Luigi Leon M.D. 12/06/2016 7:43 PM Dictated Date/Time: 12/06/2016 7:41 PM Laboratory Results 12/06/16 19:35 Red Blood Count 4.09, Mean Corpuscular Volume 98.3, Mean Corpuscular Hemoglobin 30.3, Mean Corpuscular Hemoglobin Concent 30.8, Mean Platelet Volume 10.3, Neutrophils (%) (Auto) 93.9, Lymphocytes (%) (Auto) 5.3, Monocytes (%) (Auto) 0.7, Eosinophils (%) (Auto) 0.0, Basophils (%) (Auto) 0.0, Neutrophils # (Auto) 6.42, Lymphocytes # (Auto) 0.36, Monocytes # (Auto) 0.05, Eosinophils # (Auto) 0.00, Basophils # (Auto) 0.00 12/06/16 19:35 Test 12/06/16 19:35 White Blood Count 6.84 K/uL (4.8-10.8) Red Blood Count 4.09 M/uL (4.2-5.4) Hemoglobin 12.4 g/dL (12.0-16.0) Hematocrit 40.2 % (37-47) Mean Corpuscular Volume 98.3 fL (80-100) Mean Corpuscular Hemoglobin 30.3 pg (25-34) Mean Corpuscular Hemoglobin Concent 30.8 g/dl (32-36) Platelet Count 323 K/uL (130-400) Mean Platelet Volume 10.3 fL (7.4-10.4) Neutrophils (%) (Auto) 93.9 % Lymphocytes (%) (Auto) 5.3 % Monocytes (%) (Auto) 0.7 % Eosinophils (%) (Auto) 0.0 % Basophils (%) (Auto) 0.0 % Neutrophils # (Auto) 6.42 K/uL (1.4-6.5) Lymphocytes # (Auto) 0.36 K/uL (1.2-3.4) Monocytes # (Auto) 0.05 K/uL (0.11-0.59) Eosinophils # (Auto) 0.00 K/uL (0-0.5) Basophils # (Auto) 0.00 K/uL (0-0.2) RDW Standard Deviation 57.1 fL (36.4-46.3) RDW Coefficient of Variation 15.8 % (11.5-14.5) Immature Granulocyte % (Auto) 0.1 % Immature Granulocyte # (Auto) 0.01 K/uL (0.00-0.02) Prothrombin Time 11.6 SECONDS (9.0-12.0) Prothromb Time International Ratio 1.1 (0.9-1.1) Activated Partial Thromboplast Time 27.8 SECONDS (21.0-31.0) Partial Thromboplastin Ratio 1.1 Anion Gap 6.0 mmol/L (3-11) Est Creatinine Clear Calc Drug Dose 55.2 ml/min Estimated GFR () 68.7 Estimated GFR (Non- 59.3 BUN/Creatinine Ratio 17.4 (10-20) Calcium Level 8.4 mg/dl (8.5-10.1) Phosphorus Level 3.9 mg/dl (2.5-4.9) Magnesium Level 2.3 mg/dl (1.8-2.4) Total Creatine Kinase 45 U/L (26-192) Creatine Kinase MB 1.5 ng/ml (0.5-3.6) Creatine Kinase MB Ratio 3.3 (0-3.0) Troponin I 0.022 ng/ml (0-0.045) Thyroid Stimulating Hormone (TSH) 0.470 uIu/ml (0.300-4.500) Laboratory results as reviewed by me. Medications Administered Medications (Trade) Dose Ordered Sig/Mau Route Start Time Stop Time Status Last Admin Dose Admin Tramadol HCl (Ultram Tab) 50 mg Q8H PRN PO 12/06/16 21:30 01/05/17 21:29 12/07/16 00:10 50 MG ECG Indication: SOB/dyspnea Rate (beats per minute): 83 Rhythm: atrial fibrillation Findings: no acute ischemic change, other (acute change from previous 2 EKG's which were sinus in nature; QTC of 446) ED Course 1847: The patient was evaluated in room C4. A complete history and physical exam was performed. 2006: I checked up on the patient, and she is still experiencing shortness of breath. 2021: I checked in with the patient. She can't decide about BiPAP. She is going to think about it. 2030: I discussed the patient's case with Dr. Nieves. 2329: Upon reevaluation, the patient is resting comfortably. Discussed results and treatment plan with the patient. She verbalized understanding and agreement with the treatment plan. The patient will be evaluated for further management. Medical Decision Differential: Sepsis, Infectious (UTI/Pneumonia/Meningitis/etc), Metabolic/ Electrolyte Abnormality, Cardiac, Hepatic, Endocrine, Toxicologic, Neurologic, amongst other pathologies entertained. Medication Reconciliation: I attest that I have personally reviewed the patient 's current medication list. Blood pressure screening: Patient was found to have normal blood pressure on screening and does not require follow-up. 76 yr old female arrives with acute onset shortness of breath and chest tightness this afternoon. Ongoing Chemo tx and recent pleural drains removed. She is dyspneic though not acutely hypoxic on her normal NC O2. She is stable though EKG shows new onset Afib without ischemia. Attempted BiPAP due to SHOB but patient declines due to discomfort. Not requiring intubation and sats good currently. Discussed she may feel better on bipap though she still declines. CXR read not acutely worse though clearly she is shob. Discussed with hospitalist given new onset afib with history of chemo/ca and the chest pain she was having earlier. Reviewed with hospitalist and will hold off on ED CT PE study given other likely causes of shob higher probability than PE. Consults Time Called: [phone] Consulting Physician: Dr. Nieves - [facility] Returned Call: [phone] Discussed the patient's case. The patient will be evaluated for further treatment and disposition. Impression Primary Impression: Atrial fibrillation Additional Impressions: Dyspnea Congestive heart failure Bilateral pleural effusion Tightness in chest Scribe Attestation The scribe's documentation has been prepared under my direction and personally reviewed by me in its entirety. I confirm that the note above accurately reflects all work, treatment, procedures, and medical decision making performed by me. Departure Information Dispostion Being Evaluated By Hospitalist Referrals No Doctor, Assigned (PCP) Patient Instructions My [facility] Problem Qualifiers
--- NOTE | 2016-12-06 19:44 | DIAGNOSTIC IMAGING REPORT ---
SINGLE VIEW CHEST CLINICAL HISTORY: Atypical chest pain. FINDINGS: An AP, portable, upright chest radiograph is compared to study dated 12/05/2016 and correlated with chest CT dated 11/16/2016. The examination is degraded by portable technique and patient rotation. A right subclavian central venous infusion port is unchanged in position. The heart is enlarged and there is atherosclerotic calcification of the thoracic aorta. The pulmonary vasculature is noncongested. Chronic interstitial thickening is observed. Foci of linear scarring are again seen in both lungs. Layering pleural effusions with bibasilar consolidation is unchanged from yesterday. There is no pneumothorax. The skeletal structures are osteopenic. Degenerative change is present throughout the thoracic spine. Surgical clips are present in the left axilla. IMPRESSION: 1. Cardiomegaly without radiographic evidence of congestive failure. 2. Layering pleural effusions with bibasilar consolidation. This is unchanged from yesterday. Electronically signed by: Luigi Leon M.D. 12/06/2016 7:43 PM Dictated Date/Time: 12/06/2016 7:41 PM
[2016-12-06 19:51] LABS: COMPLETE YES; HEMATOCRIT 40.2 % (37-47); IG% 0.1 %; LYMPH % 5.3 %; LYMPH ABS # 0.36 K/uL (1.2-3.4); MEAN CELL VOLUME 98.3 fL (80-100); MEAN CORPUSCULAR HEMOGLOBIN 30.3 pg (25-34); MEAN CORPUSCULAR HGB CONC 30.8 g/dl (32-36); MEAN PLATELET VOLUME 10.3 fL (7.4-10.4); MONO % 0.7 %; NEUT % 93.9 %; PLATELET COUNT 323 K/uL (130-400); RED BLOOD COUNT 4.09 M/uL (4.2-5.4); WHITE BLOOD COUNT 6.84 K/uL (4.8-10.8)
[2016-12-06 20:06] LABS: INR 1.1 (0.9-1.1); PARTIAL THROMBOPLASTIN RATIO 1.1; PROTHROMBIN TIME (PATIENT) 11.6 SECONDS (9.0-12.0)
[2016-12-06 20:10] LABS: BUN/CREATININE RATIO 17.4 (10-20); CALCIUM 8.4 mg/dl (8.5-10.1); CREATININE 0.93 mg/dl (0.60-1.20); MAGNESIUM 2.3 mg/dl (1.8-2.4)
[2016-12-06 20:19] LABS: CKMB/CK RATIO 3.3 (0-3.0); POTASSIUM 4.4 mmol/L (3.5-5.1)
[2016-12-06] MEDS ORDERED: MAGNESIUM HYDROXIDE SUSP 30 ML UDC PO PRN (21:30)
[2016-12-06] MEDS ORDERED: ONDANSETRON 8 MG TAB PO PRN (21:30)
[2016-12-06] MEDS ORDERED: POLYETHYLENE (MIRALAX) 17 GM PACK PO PRN (21:30)
[2016-12-06] MEDS ORDERED: CLONIDINE HCL 0.1 MG TAB PO PRN (21:30)
[2016-12-06] MEDS ORDERED: METHOTREXATE 2.5 MG TAB PO SCH (21:30)
--- NOTE | 2016-12-06 21:45 | History and Physical ---
History & Physical Date & Time of Service: Dec 06, 2016 at 21:34 Chief Complaint: Trouble Breathing Primary Care Physician: Ernesto Becker M.D. History of Present Illness Source: patient, family 76-year-old female with past medical history of metastatic breast cancer, aortic stenosis, hypertension, ankylosing spondylitis, GERD, hyperparathyroidism presented to the ER with complaints of shortness of breath and palpitations which started about 5:30 PM this evening. She had a chemotherapy session this morning which lasted until 3 PM. Plan she noticed that she has a pretty breathing and felt that her heart was beating faster. She denied any chest pain, dizziness or lightheadedness, headaches, numbness or tingling or motor weakness. She recently had a pericardial window performed about 3 months ago and had a right Pleurx catheter for pleural effusions which was removed about a month ago. Denied any fevers or chills, cough, nausea ,vomiting or abdominal pain. She chronically uses about 2 L of oxygen at nighttime. Past Medical/Surgical History Medical Problems: (1) Ankylosing spondylitis Status: Chronic (2) Breast cancer Status: Resolved (3) Gastroesophageal reflux disease Status: Chronic (4) Hyperparathyroidism Status: Chronic (5) Hypertension Status: Chronic (6) Osteopenia Status: Resolved Surgical Problems: (1) H/O mastectomy Status: Resolved (2) S/P hysterectomy Status: Resolved Family History Patient reports no known family medical history. Social History Smoking Status: Former Smoker Drug Use: none Marital Status: Housing status: lives alone Occupational Status: retired Immunizations History of Influenza Vaccine: Yes History of Tetanus Vaccine?: No History of Pneumococcal: No History of Hepatitis B Vaccine: No Multi-Drug Resistant Organisms History of MDRO: No Allergies Coded Allergies: Diphenhydramine (Verified Adverse Reaction, Mild, hyperactive, 12/06/16) POOR TOLERANCE OF BENADRYL; becomes hyper Home Medications Scheduled Calcium Carbonate-Vitamin D (Calcium + D3 600-200 mg-Unit), 1 TAB PO QAM Cholecalciferol (Vitamin D), 2,000 UNIT PO QAM Docusate Sodium (Colace), 1 CAP PO BID Folic Acid (Folvite), 1 MG PO QAM Lisinopril (Zestril), 40 MG PO QAM Methotrexate (Methotrexate), 2.5 MG PO Monday Prednisone (Prednisone), 4 MG PO QAM Ranitidine (Zantac), 150 MG PO QAM Triamterene/Hctz (Triamterene/Hctz 37.5-25MG), 1 TAB PO Q2D Scheduled PRN Clonidine Hcl (Catapres), 0.1 MG PO BID PRN for PRN Ondansetron Hcl (Zofran), 8 MG PO Q8 PRN for Nausea Prochlorperazine Maleate (Compazine), 1 TAB PO Q6 PRN for Nausea or Vomiting Tramadol (Ultram), 50 MG PO Q8H PRN for Pain Review of Systems Constitutional: No fever, No chills Eyes: No worsening of vision ENT: No hearing loss Respiratory: No cough Cardiovascular: No chest pain Abdomen: No pain, No nausea, No vomiting Genitourinary - Female: No dysuria, No urinary frequency Neurologic: No memory loss Psychiatric: No depression symptoms Endocrine: No fatigue Physical Exam Vital Signs Date Time Temp Pulse Resp B/P (MAP) Pulse Ox O2 Delivery O2 Flow Rate FiO2 12/06/16 20:18 76 36 152/86 98 Nasal Cannula 3.0 12/06/16 19:09 85 12/06/16 18:33 98 Nasal Cannula 3.0 12/06/16 18:32 142/84 12/06/16 18:20 36.6 95 19 100 Room Air General Appearance: WD/WN, no apparent distress Head: normocephalic, atraumatic Eyes: normal inspection ENT: hearing grossly normal Neck: supple Respiratory/Chest: no respiratory distress, no accessory muscle use, + wheezing (diffusely) Cardiovascular: + irregularly irregular Abdomen/GI: non tender, soft Extremities/Musculoskelatal: no pedal edema (elft sided upper extemity lymphedema), + pertinent finding Neurologic/Psych: alert, normal mood/affect, oriented x 3 Skin: normal color Diagnostics Laboratory Results Results Past 24 Hours Test 12/06/16 19:35 Range/Units White Blood Count 6.84 4.8-10.8 K/uL Red Blood Count 4.09 4.2-5.4 M/uL Hemoglobin 12.4 12.0-16.0 g/dL Hematocrit 40.2 37-47 % Mean Corpuscular Volume 98.3 80-100 fL Mean Corpuscular Hemoglobin 30.3 25-34 pg Mean Corpuscular Hemoglobin Concent 30.8 32-36 g/dl Platelet Count 323 130-400 K/uL Mean Platelet Volume 10.3 7.4-10.4 fL Neutrophils (%) (Auto) 93.9 % Lymphocytes (%) (Auto) 5.3 % Monocytes (%) (Auto) 0.7 % Eosinophils (%) (Auto) 0.0 % Basophils (%) (Auto) 0.0 % Neutrophils # (Auto) 6.42 1.4-6.5 K/uL Lymphocytes # (Auto) 0.36 1.2-3.4 K/uL Monocytes # (Auto) 0.05 0.11-0.59 K/uL Eosinophils # (Auto) 0.00 0-0.5 K/uL Basophils # (Auto) 0.00 0-0.2 K/uL RDW Standard Deviation 57.1 36.4-46.3 fL RDW Coefficient of Variation 15.8 11.5-14.5 % Immature Granulocyte % (Auto) 0.1 % Immature Granulocyte # (Auto) 0.01 0.00-0.02 K/uL Prothrombin Time 11.6 9.0-12.0 SECONDS Prothromb Time International Ratio 1.1 0.9-1.1 Activated Partial Thromboplast Time 27.8 21.0-31.0 SECONDS Partial Thromboplastin Ratio 1.1 Sodium Level 141 136-145 mmol/L Potassium Level 4.4 3.5-5.1 mmol/L Chloride Level 102 98-107 mmol/L Carbon Dioxide Level 33 21-32 mmol/L Anion Gap 6.0 3-11 mmol/L Blood Urea Nitrogen 16 7-18 mg/dl Creatinine 0.93 0.60-1.20 mg/dl Est Creatinine Clear Calc Drug Dose 55.2 ml/min Estimated GFR () 68.7 Estimated GFR (Non- 59.3 BUN/Creatinine Ratio 17.4 10-20 Random Glucose 161 70-99 mg/dl Calcium Level 8.4 8.5-10.1 mg/dl Magnesium Level 2.3 1.8-2.4 mg/dl Total Creatine Kinase 45 26-192 U/L Creatine Kinase MB 1.5 0.5-3.6 ng/ml Creatine Kinase MB Ratio 3.3 0-3.0 Troponin I 0.022 0-0.045 ng/ml Diagnostic Radiology [~ rep ct add3]] SINGLE VIEW CHEST CLINICAL HISTORY: Atypical chest pain. FINDINGS: An AP, portable, upright chest radiograph is compared to study dated 12/05/2016 and correlated with chest CT dated 11/16/2016. The examination is degraded by portable technique and patient rotation. A right subclavian central venous infusion port is unchanged in position. The heart is enlarged and there is atherosclerotic calcification of the thoracic aorta. The pulmonary vasculature is noncongested. Chronic interstitial thickening is observed. Foci of linear scarring are again seen in both lungs. Layering pleural effusions with bibasilar consolidation is unchanged from yesterday. There is no pneumothorax. The skeletal structures are osteopenic. Degenerative change is present throughout the thoracic spine. Surgical clips are present in the left axilla. IMPRESSION: 1. Cardiomegaly without radiographic evidence of congestive failure. 2. Layering pleural effusions with bibasilar consolidation. This is unchanged from yesterday. Electronically signed by: Luigi Leon M.D. 12/06/2016 7:43 PM Dictated Date/Time: 12/06/2016 7:41 PM EKG Atrial fibrillation Nonspecific ST and T wave abnormality Abnormal ECG When compared with ECG of 14-OCT-2016 12:20, Atrial fibrillation has replaced Sinus rhythm Vent. rate has increased BY 44 BPM Nonspecific T wave abnormality has replaced inverted T waves in Lateral leads QT has lengthened 25mm/s 10mm/mV 150Hz 8.0 SP2 12SL 241 MELLISA: 13 Referred by: Referred Self Impression Assessment and Plan 76-year-old female with past medical history of metastatic breast cancer, aortic stenosis, hypertension, ankylosing spondylitis, GERD, hyperparathyroidism presented to the ER with complaints of shortness of breath and palpitations which started about 5:30 PM this evening. New onset atrial fibrillation: - Currently rate controlled - Potassium of 4.4 - Mag and phosphorus pending, TSH pending - Admitted to telemetry - Echo ordered for tomorrow - Discussed about anticoagulation- did not start any yet as she is in A. fib for less than 48 hours Shortness of breath: Likely secondary to pleural effusions from metastatic breast cancer -Chest x-ray: 1. Cardiomegaly without radiographic evidence of congestive failure. 2. Layering pleural effusions with bibasilar consolidation. This is unchanged from yesterday. - CT surgery consult - Continue 2 L O2 via nasal cannula. Metastatic breast cancer: Currently undergoing chemotherapy Ankylosing spondylitis: Stable - Methotrexate weekly - Continue prednisone daily Hypertension: - Continue Zestril 40 mg daily and triamterene hydrochlorothiazide every other day DVT prophylaxis: Heparin subcutaneous DO NOT RESUSCITATE Disposition: Admitted to telemetry Resident Physician Supervision Note: Pt seen/examined independently. I discussed the case with the resident and agree with the findings and plan as documented in the note. Any exceptions or clarifications are listed here: 76 y/o F met breast CA presenting with SOB - recently had a Pleurx cath for effusion on R which was removed. She appears to have B/L reaccumulation. She has new onset AF on arrival as well although she did not appear to have related symptoms aside from experiencing palpitations occasionally. Her rate is controlled on admission. OE AAO x 3 S1,2 R No air entry up to mid lungs B/L NT, ND, BS+ No CCE P: Monitor on telemetry Discuss anticoagulation with her slide machine tender prior to D/C although will hold in short term as she will require thoracentesis Dr Tena consulted for Thoracentesis Documented By: David Nieves Level of Care Telemetry Resuscitation Status DO NOT RESUSCITATE VTE Prophylaxis VTE Risk Assessment Done? Y/N: Yes Risk Level: Moderate Given or contraindicated: Unfractionated heparin SQ, SCD's Resident Tracking Resident Involvement: Resident Care Provided Care Provided: Adult Hospital Medicine
[2016-12-06 22:04] LABS: PHOSPHORUS 3.9 mg/dl (2.5-4.9); THYROID STIMULATING HORMONE 0.47 uIu/ml (0.300-4.500)
[2016-12-06 22:39] VITALS: BP 162/84; PULSE 73; TEMP 36.6; O2SAT 97; Ht 165.1 cm; Wt 86.6 kg
[2016-12-06] MEDS: SODIUM CHLORIDE 0.9% 1000ML 1,000 ML IV SCH (23:00)
[2016-12-06 23:19] VITALS: PULSE 79; TEMP 36.9; O2SAT 97
[2016-12-06 23:53] VITALS: BP 122/88
[2016-12-07] VITALS (8 sets, daily range): BP systolic 135–177; BP diastolic 72–82; PULSE 73–95; TEMP 36.4–37; O2SAT 97–100
[2016-12-07] MEDS: TRAMADOL HCL 50 MG TAB PO PRN ×2 (00:10→21:25)
[2016-12-07] MEDS: HEPARIN SOD 5000 UNIT/0.5 ML CARP SQ SCH ×3 (06:00→21:23)
[2016-12-07 06:11] LABS: COMPLETE YES; HEMATOCRIT 36.8 % (37-47); IG% 0.2 %; LYMPH % 9.8 %; LYMPH ABS # 0.57 K/uL (1.2-3.4); MEAN CELL VOLUME 100.3 fL (80-100); MEAN CORPUSCULAR HEMOGLOBIN 31.3 pg (25-34); MEAN CORPUSCULAR HGB CONC 31.3 g/dl (32-36); MEAN PLATELET VOLUME 10.9 fL (7.4-10.4); MONO % 7.7 %; NEUT % 82.3 %; PLATELET COUNT 270 K/uL (130-400); RED BLOOD COUNT 3.67 M/uL (4.2-5.4); WHITE BLOOD COUNT 5.82 K/uL (4.8-10.8)
[2016-12-07 06:45] LABS: BUN/CREATININE RATIO 22.8 (10-20); CALCIUM 7.9 mg/dl (8.5-10.1); CREATININE 0.75 mg/dl (0.60-1.20); MAGNESIUM 2.4 mg/dl (1.8-2.4); POTASSIUM 4.1 mmol/L (3.5-5.1)
[2016-12-07 06:46] LABS: PHOSPHORUS 3.9 mg/dl (2.5-4.9)
[2016-12-07] MEDS: ACETAMINOPHEN 325 MG TAB PO PRN (07:14)
[2016-12-07] MEDS: DOCUSATE SODIUM 100 MG CAP PO SCH ×3 (09:00→21:24)
[2016-12-07] MEDS: RANITIDINE HCL 150 MG TAB PO SCH (09:00)
[2016-12-07] MEDS ORDERED: TRIAMTERENE/HCTZ 37.5/25MG TAB PO SCH (09:00)
[2016-12-07] MEDS: LISINOPRIL 40 MG TAB PO SCH (09:01)
[2016-12-07] MEDS: ONDANSETRON INJ 2 MG/ML 2 ML VIAL IV PRN (09:20)
--- NOTE | 2016-12-07 10:23 | OPERATIVE REPORT ---
DATE OF OPERATION: 12/07/2016 PROCEDURE: Right thoracentesis under ultrasound guidance. SURGEON: Dr. Tena. ROOF SHINGLER: CINTIA Mcdaniels. ANESTHESIA: Local. SPECIFICS OF PROCEDURE: With the patient in a seated position, ultrasound was used to barney a spot at about the 8th interspace. She was prepped and draped in usual sterile fashion after appropriate timeout had been called. The patient had her skin anesthetized with 25-gauge needle, 1% Xylocaine. A larger bore needle was used to anesthetize the deeper subcutaneous tissues and pleura, and then when free flowing fluid was obtained, a guidewire was inserted through the needle and needle removed. A triple lumen catheter was slid in approximately 17 cm and guidewire removed. Approximately 1100 mL of a rust-colored fluid was drained. She had reexpansion coughing, so we stopped at about 1100 mL, although she had more fluid in there. A chest x-ray is pending at this time. I attest to the content of the Intraoperative Record and any orders documented therein. Any exception s are noted below.
--- NOTE | 2016-12-07 10:29 | DIAGNOSTIC IMAGING REPORT ---
SINGLE VIEW CHEST CLINICAL HISTORY: Thoracentesis. FINDINGS: An AP, portable, upright chest radiograph is compared to study dated 12/06/2016 and correlated with chest CT dated 11/16/2016. The examination is degraded by portable technique and patient rotation. A right subclavian central venous infusion port is unchanged in position. The heart is enlarged and there is atherosclerotic calcification of the thoracic aorta. The pulmonary vasculature is noncongested. Chronic interstitial thickening is observed. Foci of linear scarring are again seen in both lungs. Layering pleural effusions with bibasilar consolidation are again seen. The right pleural effusion may have modestly decreased in size from yesterday. There is no pneumothorax. The skeletal structures are osteopenic. Degenerative change is present throughout the thoracic spine. Surgical clips are present in the left axilla. IMPRESSION: 1. Cardiomegaly without radiographic evidence of congestive failure. 2. Layering pleural effusions with bibasilar consolidation. The right pleural effusion may have modestly decreased in size from yesterday. 3. No pneumothorax is identified. Electronically signed by: Luigi Leon M.D. 12/07/2016 10:27 AM Dictated Date/Time: 12/07/2016 10:25 AM
--- NOTE | 2016-12-07 10:38 | SURGICAL CONSULTATION ---
DATE OF CONSULTATION: 12/07/2016 REASON FOR CONSULTATION: 1. Bilateral pleural effusions. 2. Widely metastatic breast cancer. 3. Currently undergoing chemotherapy. HISTORY OF PRESENT ILLNESS: This is a 76-year-old female, who is well-known to me. I met her with a pericardial effusion and a pleural effusion about 5 months ago. I performed a thoracoscopy and drained her pericardial effusion and her pleural effusion, turns out both of these were malignant from widely metastatic breast cancer which is involving her bone. We had a long discussion about this. I inserted a PleurX cath at that time we drained her for a long period of time before finally removing it. We did instill talc for talc pleurodesis for malignant right pleural effusion, but it was about 3 months after we performed the thoracoscopy and pericardial drainage. The talc pleurodesis was done on 10/14/2016. The patient did not do well with this. She had to be admitted. She just did not feel well, so we admitted her to the hospital at that time. She had to be put on oxygen and finally settled down. I have been seeing her in the office. She is requiring oxygen now at 2 liters. Surprisingly well with a malignant pleural and pericardial effusion, not only surviving for the last 5 months, but also continuing to undergo chemotherapy in fact she underwent chemotherapy yesterday. I was asked to see her today after she got chemotherapy yesterday and became more short of breath. I actually saw the patient just few days ago in the office and I reviewed a CT scan which had been done a couple of weeks ago and told her that she had a moderate amount of fluid, more on the right than the left, which was homogenous in layering out. I felt that a thoracentesis could be helpful; however, she was still only on 2 liters and this did not change much and I did not want to change the course at this point. The patient presented with more shortness of breath last night. I saw her today and felt that performing a thoracentesis would be helpful. PAST MEDICAL HISTORY: 1. Metastatic breast cancer. 2. Ankylosing spondylitis. 3. Gastroesophageal reflux disease. 4. Hyperparathyroidism. 5. Osteopenia. 6. Hypertension. PAST SURGICAL HISTORY: 1. Hysterectomy. 2. Mastectomy. 3. Childbirth. 4. Right thoracoscopy, pericardial window. 5. Removal of PleurX catheter. MEDICATIONS: 1. Methotrexate. 2. Lisinopril. 3. Prednisone. 4. Ranitidine. 5. Triamterene/hydrochlorothiazide. 6. Colace. 7. Calcium supplements. 8. Vitamin D. 9. Montes catheter. ALLERGIES: 1. BENADRYL. SOCIAL HISTORY: The patient actually lives by herself. She has a son and a daughter, who live in [place]. Her daughter is quite supportive. FAMILY MEDICAL HISTORY: Really noncontributory in this case. REVIEW OF SYSTEMS: The patient's weight has been stable. Her breathing has been relatively stable. We had a long discussion about this in the office a few days ago and I stated that if the breathing got to the point where she could not do her activities of daily living, we would do a thoracentesis. I was reluctant putting a PleurX catheter in it because it caused her so much pain to drain it. She has been eating and drinking. She denies chest pain, but did describe some palpitations last night. She has had or GI symptoms. Had no visual or auditory symptoms. The patient had some wound slight breakdown of her sacral area. She has had no night sweats. She has had no auditory or visual changes. PHYSICAL EXAMINATION: GENERAL: This is a 5 feet 5 inch, 187 pound white female who is awake, alert, oriented. She is walking in the room. She is on oxygen. She is on 3 liters. She has got irregularly irregular rhythm of her heart with a rate ranging from the 70s to 90s. HEAD, EYES, EARS, NOSE, AND THROAT: Her extraocular movements were intact. She has no oral mucosal lesions. Her tongue is midline. NECK: Supple. She has no supraclavicular or cervical lymphadenopathy or neck vein distention. LUNGS: She has decreased breath sounds in both bases. There is not really a big difference between them. She has an irregular irregular rhythm of her heart. ABDOMEN: Obese, but soft, nontender. EXTREMITIES: She has trace edema of her lower extremities. She has palpable pulses. She has no joint effusions. She has marked edema in the left upper extremity after her left mastectomy and this is chronic. NEUROLOGIC: The patient is awake, alert, oriented, no focal deficits. ASSESSMENT AND PLAN: Bilateral pleural effusions. We do know the right is malignant. I am going to perform a thoracentesis today to see if this will help her. ISIDRA
--- NOTE | 2016-12-07 10:46 | SURGICAL CONSULTATION ---
DATE OF CONSULTATION: 12/07/2016 REVIEW OF SYMPTOMS: The patient had some wound slight breakdown of her sacral area. She has had no night sweats. She has had no auditory or visual changes. PHYSICAL EXAMINATION: GENERAL: This is a 5 feet 5 inch, 187 pound white female who is awake, alert, oriented. She is walking in the room. She is on oxygen. She is on 3 liters. She has got irregularly irregular rhythm of her heart with a rate ranging from the 70s to 90s. HEAD, EYES, EARS, NOSE, AND THROAT: Her extraocular movements were intact. She has no oral mucosal lesions. Her tongue is midline. NECK: Supple. She has no supraclavicular or cervical lymphadenopathy or neck vein distention. LUNGS: She has decreased breath sounds in both bases. There is not really a big difference between them. She has an irregular irregular rhythm of her heart. ABDOMEN: Obese, but soft, nontender. EXTREMITIES: She has trace edema of her lower extremities. She has palpable pulses. She has no joint effusions. She has marked edema in the left upper extremity after her left mastectomy and this is chronic. NEUROLOGIC: The patient is awake, alert, oriented, no focal deficits. ASSESSMENT AND PLAN: Bilateral pleural effusions. We do know the right is malignant. I am going to perform a thoracentesis today to see if this will help her. ISIDRA
[2016-12-07] MEDS: SODIUM CHLORIDE 0.9% 1000ML 1,000 ML IV SCH (12:43)
--- NOTE | 2016-12-07 13:33 | Hospitalist Progress Note ---
Hospitalist Progress Note Date of Service Dec 07, 2016. Subjective Pt evaluation today including: conversation w/ patient, conversation w/ family (daughter- at bedside), physical exam, chart review, lab review, review of studies, review of inpatient medication list Voiding: no voiding problems, no incontinence Patient states she is feeling well. Continued intermittent episodes of palpations. +SOB. +cough w/ sputum production- cough started s/p thoracentesis. She is eating and drinking OK. +constipation- given Colace. Patient denies any fever, chills, sweats, lightheadedness, dizziness, vision changes, CP, palpitations, edema, SOB, wheezing, cough, abdominal pain, nausea, vomiting, diarrhea, urinary symptoms, melena, numbness/tingling, weakness, muscle/joint pain, anxiety/depression, active bleeding, or new skin discoloration/changes. Patient states she has been following closely recently w/ Dr. Jackson for aortic stenosis. She is currently refusing Heparin SQ. She would like to speak w / Dr. Jackson about new onset a.fib. Medications Current Inpatient Medications Medications (Trade) Dose Ordered Sig/Mau Route Start Time Stop Time Status Last Admin Dose Admin Heparin Sodium (Porcine) (Heparin Sq 5000 Unit/0.5ml) 5,000 unit Q8 SQ 12/07/16 06:00 01/06/17 05:59 Sodium Chloride 1,000 ml @ 75 mls/hr [id number] IV 12/06/16 23:00 01/05/17 22:59 12/07/16 12:43 75 MLS/HR Acetaminophen (Tylenol Tab) 650 mg Q4H PRN PO 12/06/16 21:30 01/05/17 21:29 12/07/16 07:14 650 MG Magnesium Hydroxide (Milk Of Magnesia Susp) 30 ml Q12H PRN PO 12/06/16 21:30 01/05/17 21:29 Ondansetron HCl (Zofran Inj) 4 mg Q6H PRN IV 12/06/16 21:30 01/05/17 21:29 12/07/16 09:20 4 MG Polyethylene (Miralax Powder Packet) 17 gm DAILY PRN PO 12/06/16 21:30 01/05/17 21:29 Clonidine HCl (Catapres Tab) 0.1 mg BID PRN PO 12/06/16 21:30 01/05/17 21:29 Docusate Sodium (coLACE CAP) 100 mg BID PO 12/07/16 09:00 01/06/17 08:59 12/07/16 13:47 100 MG Lisinopril (Zestril Tab) 40 mg QAM PO 12/07/16 09:00 01/06/17 08:59 12/07/16 09:01 40 MG Ondansetron HCl (Zofran Tab) 8 mg Q8 PRN PO 12/06/16 21:30 01/05/17 21:29 Prednisone (PredniSONE TAB) 4 mg QAM PO 12/07/16 09:00 01/06/17 08:59 12/07/16 09:01 4 MG Ranitidine HCl (zANTac TAB) 150 mg QAM PO 12/07/16 09:00 01/06/17 08:59 12/07/16 09:00 150 MG Tramadol HCl (Ultram Tab) 50 mg Q8H PRN PO 12/06/16 21:30 01/05/17 21:29 12/07/16 00:10 50 MG Triamterene/HCTZ (Maxzide 37.5/25 Tab) 1 tab Q2D PO 12/07/16 09:00 01/06/17 08:59 12/07/16 09:00 1 TAB Folic Acid (Folvite Tab) 1 mg SuMoWeThFrSa@0900 PO 12/07/16 09:00 01/06/17 08:59 12/07/16 09:00 1 MG Heparin Sodium (Porcine) (Heparin 100 Unit/ml 5ml Flush) 5 ml PRN PRN IV 12/07/16 01:00 01/06/17 00:59 Methotrexate (Methotrexate Tab) 7.5 mg Tu@0900 PO 12/13/16 09:00 01/12/17 08:59 Objective Vital Signs Date Time Temp Pulse Resp B/P (MAP) Pulse Ox O2 Delivery O2 Flow Rate FiO2 12/07/16 12:00 Nasal Cannula 3.0 12/07/16 07:53 Nasal Cannula 3.0 12/07/16 07:10 36.8 95 18 142/72 (95) 100 12/07/16 04:05 97 Nasal Cannula 3.0 12/07/16 04:00 36.4 73 18 135/79 (97) 97 Nasal Cannula 3.0 12/07/16 00:05 97 Nasal Cannula 3.0 12/06/16 23:53 122/88 (99) 12/06/16 23:19 36.9 79 18 97 Nasal Cannula 3.0 12/06/16 22:39 36.6 73 20 162/84 97 Nasal Cannula 3.0 12/06/16 21:43 73 20 162/84 97 Room Air 12/06/16 20:18 76 36 152/86 98 Nasal Cannula 3.0 12/06/16 19:09 85 12/06/16 18:33 98 Nasal Cannula 3.0 12/06/16 18:32 142/84 12/06/16 18:20 36.6 95 19 100 Room Air Physical Exam General Appearance: no apparent distress Eyes: normal inspection, PERRL ENT: hearing grossly normal Neck: supple Respiratory/Chest: no respiratory distress, no accessory muscle use, + decreased breath sounds (bilateral lung bases ) Cardiovascular: + systolic murmur, + irregularly irregular (rate controlled ) Abdomen: normal bowel sounds, non tender, soft Extremities: no pedal edema, no calf tenderness, + swelling (Left upper extremity ) Neurologic/Psychiatric: alert, normal mood/affect, oriented x 3 Skin: normal color, warm/dry, no rash Laboratory Results Last 24 Hours Test 12/06/16 19:35 12/07/16 00:00 12/07/16 05:40 White Blood Count 6.84 K/uL 5.82 K/uL Red Blood Count 4.09 M/uL 3.67 M/uL Hemoglobin 12.4 g/dL 11.5 g/dL Hematocrit 40.2 % 36.8 % Mean Corpuscular Volume 98.3 fL 100.3 fL Mean Corpuscular Hemoglobin 30.3 pg 31.3 pg Mean Corpuscular Hemoglobin Concent 30.8 g/dl 31.3 g/dl Platelet Count 323 K/uL 270 K/uL Mean Platelet Volume 10.3 fL 10.9 fL Neutrophils (%) (Auto) 93.9 % 82.3 % Lymphocytes (%) (Auto) 5.3 % 9.8 % Monocytes (%) (Auto) 0.7 % 7.7 % Eosinophils (%) (Auto) 0.0 % 0.0 % Basophils (%) (Auto) 0.0 % 0.0 % Neutrophils # (Auto) 6.42 K/uL 4.79 K/uL Lymphocytes # (Auto) 0.36 K/uL 0.57 K/uL Monocytes # (Auto) 0.05 K/uL 0.45 K/uL Eosinophils # (Auto) 0.00 K/uL 0.00 K/uL Basophils # (Auto) 0.00 K/uL 0.00 K/uL RDW Standard Deviation 57.1 fL 57.5 fL RDW Coefficient of Variation 15.8 % 15.9 % Immature Granulocyte % (Auto) 0.1 % 0.2 % Immature Granulocyte # (Auto) 0.01 K/uL 0.01 K/uL Prothrombin Time 11.6 SECONDS Prothromb Time International Ratio 1.1 Activated Partial Thromboplast Time 27.8 SECONDS Partial Thromboplastin Ratio 1.1 Sodium Level 141 mmol/L 141 mmol/L Potassium Level 4.4 mmol/L 4.1 mmol/L Chloride Level 102 mmol/L 103 mmol/L Carbon Dioxide Level 33 mmol/L 32 mmol/L Anion Gap 6.0 mmol/L 6.0 mmol/L Blood Urea Nitrogen 16 mg/dl 17 mg/dl Creatinine 0.93 mg/dl 0.75 mg/dl Est Creatinine Clear Calc Drug Dose 55.2 ml/min 67.6 ml/min Estimated GFR () 68.7 89.1 Estimated GFR (Non- 59.3 76.9 BUN/Creatinine Ratio 17.4 22.8 Random Glucose 161 mg/dl 115 mg/dl Calcium Level 8.4 mg/dl 7.9 mg/dl Phosphorus Level 3.9 mg/dl 3.9 mg/dl Magnesium Level 2.3 mg/dl 2.4 mg/dl Total Creatine Kinase 45 U/L Creatine Kinase MB 1.5 ng/ml Creatine Kinase MB Ratio 3.3 Troponin I 0.022 ng/ml Thyroid Stimulating Hormone (TSH) 0.470 uIu/ml Pleural Fluid pH 7.39 Pleural Fluid Glucose 131 mg/dl Total Bilirubin 0.5 mg/dl Direct Bilirubin 0.1 mg/dl Aspartate Amino Transf (AST/SGOT) 22 U/L Alanine Aminotransferase (ALT/SGPT) 22 U/L Alkaline Phosphatase 145 U/L Total Protein 7.0 gm/dl Albumin 3.1 gm/dl Assessment and Plan 76-year-old female with past medical history of metastatic breast cancer, aortic stenosis, hypertension, ankylosing spondylitis, GERD, hyperparathyroidism , presented to the ER with complaints of shortness of breath and palpitations which started about 5:30 PM this evening. New onset atrial fibrillation- rate controlled: - Admit to tele for cardiac monitoring - Cardiac enzymes- negative - Potassium, mag, TSH- WNL - ECHO pending - Consult cardiology, appreciate recommendations SOB, likely secondary to pleural effusions from metastatic breast cancer: - O2 protocol, wean as tolerated- wears 2L at home at all times - Consult thoracic surgery, appreciate recommendations -- s/p R thoracentesis- drained ~1100 mL- pleural studies pending Metastatic breast cancer- undergoing chemotherapy: - Follows w/ Dr. Barragan - Last chemo treatment on 12/06- scheduled for next treatment on 12/13 Ankylosing spondylitis- STABLE: - Methotrexate 2.5 mg weekly (Monday) and Prednisone 4 mg daily Hypertension: Lisinopril 40 mg daily and Maxzide every other day GI Prophylaxis: Zantac, Maalox PRN, IV Zofran PRN, Colace and/or Milk of Mag PRN DVT Prophylaxis: Heparin SQ Code Status: LEVEL V, DNR Disposition: Discharge uncertain at this time- from home- child protective services social worker consulted - PT/OT evaluations pending
[2016-12-07] MEDS ORDERED: AMIODARONE IV BOLUS / DRIP IV STA (17:14)
--- NOTE | 2016-12-07 17:14 | Cardiology Consultation ---
Cardiology Consultation Date of Consultation: Dec 07, 2016. Requesting Physician: Dr. Ashley Reason for Consultation: New onset atrial fibrillation Pt evaluation today including: conversation w/ patient, conversation w/ family , physical exam, lab review, review of studies, review of inpatient medication list History of Present Illness This is a 76-year-old woman who has a history of metastatic breast cancer which is currently being treated, as well as a cardiomyopathy with an ejection fraction of 40% range and moderate aortic stenosis. She had recurrent pericardial effusions and had pleurodesis followed by a pericardial window. She presents with sudden shortness of breath starting in the afternoon of 2016 and notes that her face turned red and she had a dry mouth. She also had palpitations. She therefore presented to the emergency room where she was found to be in atrial fibrillation. Past Medical/Surgical History (1) Atrial fibrillation (2) Hypertension (3) Pericardial effusion (4) Aortic stenosis (5) Metastatic breast cancer (6) H/O mastectomy (7) S/P hysterectomy Family History Patient reports no known family medical history. Social History Smoking Status: Former Smoker History of Alcohol Use: Yes (1-2 wine every other day.) Review of Systems Constitutional: + fatigue, No fever, No weight loss, No weakness Respiratory: No cough, No wheezing, No shortness of breath, No dyspnea on exertion Cardiac: + see HPI, + palpitations, No chest pain, No orthopnea, No PND, No edema Abdomen: No pain, No nausea, No vomiting, No diarrhea, No GI bleeding Female : No problem reported Neurologic: No paralysis, No weakness, No numbness/tingling, No balance problems Heme: No abnormal bleeding/bruising, No clotting problems Endo: No fatigue Skin: No problem reported All Other Systems: Reviewed and Negative Allergies Coded Allergies: Diphenhydramine (Verified Adverse Reaction, Mild, hyperactive, 12/06/16) POOR TOLERANCE OF BENADRYL; becomes hyper Medications Current Inpatient Medications Medications (Trade) Dose Ordered Sig/Mau Route Start Time Stop Time Status Last Admin Dose Admin Heparin Sodium (Porcine) (Heparin Sq 5000 Unit/0.5ml) 5,000 unit Q8 SQ 12/07/16 06:00 01/06/17 05:59 Sodium Chloride 1,000 ml @ 75 mls/hr [id number] IV 12/06/16 23:00 01/05/17 22:59 12/07/16 12:43 75 MLS/HR Acetaminophen (Tylenol Tab) 650 mg Q4H PRN PO 12/06/16 21:30 01/05/17 21:29 12/07/16 07:14 650 MG Magnesium Hydroxide (Milk Of Magnesia Susp) 30 ml Q12H PRN PO 12/06/16 21:30 01/05/17 21:29 Ondansetron HCl (Zofran Inj) 4 mg Q6H PRN IV 12/06/16 21:30 01/05/17 21:29 12/07/16 09:20 4 MG Polyethylene (Miralax Powder Packet) 17 gm DAILY PRN PO 12/06/16 21:30 01/05/17 21:29 Clonidine HCl (Catapres Tab) 0.1 mg BID PRN PO 12/06/16 21:30 01/05/17 21:29 Docusate Sodium (coLACE CAP) 100 mg BID PO 12/07/16 09:00 01/06/17 08:59 12/07/16 13:47 100 MG Lisinopril (Zestril Tab) 40 mg QAM PO 12/07/16 09:00 01/06/17 08:59 12/07/16 09:01 40 MG Ondansetron HCl (Zofran Tab) 8 mg Q8 PRN PO 12/06/16 21:30 01/05/17 21:29 Prednisone (PredniSONE TAB) 4 mg QAM PO 12/07/16 09:00 01/06/17 08:59 12/07/16 09:01 4 MG Ranitidine HCl (zANTac TAB) 150 mg QAM PO 12/07/16 09:00 01/06/17 08:59 12/07/16 09:00 150 MG Tramadol HCl (Ultram Tab) 50 mg Q8H PRN PO 12/06/16 21:30 01/05/17 21:29 12/07/16 00:10 50 MG Triamterene/HCTZ (Maxzide 37.5/25 Tab) 1 tab Q2D PO 12/07/16 09:00 01/06/17 08:59 12/07/16 09:00 1 TAB Folic Acid (Folvite Tab) 1 mg SuMoWeThFrSa@0900 PO 12/07/16 09:00 01/06/17 08:59 12/07/16 09:00 1 MG Heparin Sodium (Porcine) (Heparin 100 Unit/ml 5ml Flush) 5 ml PRN PRN IV 12/07/16 01:00 01/06/17 00:59 Methotrexate (Methotrexate Tab) 7.5 mg Tu@0900 PO 12/13/16 09:00 01/12/17 08:59 Physical Exam Vital Signs Past 12 Hours Date Time Temp Pulse Resp B/P (MAP) Pulse Ox O2 Delivery O2 Flow Rate FiO2 12/07/16 16:33 145/82 (103) 12/07/16 15:42 36.9 92 20 100 Nasal Cannula 3.0 12/07/16 12:00 Nasal Cannula 3.0 12/07/16 07:53 Nasal Cannula 3.0 12/07/16 07:10 36.8 95 18 142/72 (95) 100 Constitutional: General Apperance: heathly-appearing Level of Distress: NAD Psychiatric: Mental Status: active & alert Head: normocephalic Eyes: EOM: EOMI ENMT: normal ENT inspection, hearing grossly normal Neck: supple, no masses Lungs: Respiratory effort: no dyspnea, good air movement Auscultation: no wheezing, decreased breath sounds Cardiovascular: Heart Auscultation: no rubs, no gallops, II/ KENNY, irregular rate rhythm Peripheral Pulses: Bruits: none appreciated Abdomen: Bowel Sounds: normal Inspection & Palpation: soft, no tenderness, guarding & rebound, no masses Musculoskeletal: normal strength (5/5 throughout) Extremities: no edema, edema (L arm) Neurologic: Cranial Nerves: grossly intact Sensation: grossly intact Data Laboratory Results: Last 24 Hours Test 12/06/16 19:35 12/07/16 00:00 12/07/16 05:40 White Blood Count 6.84 K/uL 5.82 K/uL Red Blood Count 4.09 M/uL 3.67 M/uL Hemoglobin 12.4 g/dL 11.5 g/dL Hematocrit 40.2 % 36.8 % Mean Corpuscular Volume 98.3 fL 100.3 fL Mean Corpuscular Hemoglobin 30.3 pg 31.3 pg Mean Corpuscular Hemoglobin Concent 30.8 g/dl 31.3 g/dl Platelet Count 323 K/uL 270 K/uL Mean Platelet Volume 10.3 fL 10.9 fL Neutrophils (%) (Auto) 93.9 % 82.3 % Lymphocytes (%) (Auto) 5.3 % 9.8 % Monocytes (%) (Auto) 0.7 % 7.7 % Eosinophils (%) (Auto) 0.0 % 0.0 % Basophils (%) (Auto) 0.0 % 0.0 % Neutrophils # (Auto) 6.42 K/uL 4.79 K/uL Lymphocytes # (Auto) 0.36 K/uL 0.57 K/uL Monocytes # (Auto) 0.05 K/uL 0.45 K/uL Eosinophils # (Auto) 0.00 K/uL 0.00 K/uL Basophils # (Auto) 0.00 K/uL 0.00 K/uL RDW Standard Deviation 57.1 fL 57.5 fL RDW Coefficient of Variation 15.8 % 15.9 % Immature Granulocyte % (Auto) 0.1 % 0.2 % Immature Granulocyte # (Auto) 0.01 K/uL 0.01 K/uL Prothrombin Time 11.6 SECONDS Prothromb Time International Ratio 1.1 Activated Partial Thromboplast Time 27.8 SECONDS Partial Thromboplastin Ratio 1.1 Sodium Level 141 mmol/L 141 mmol/L Potassium Level 4.4 mmol/L 4.1 mmol/L Chloride Level 102 mmol/L 103 mmol/L Carbon Dioxide Level 33 mmol/L 32 mmol/L Anion Gap 6.0 mmol/L 6.0 mmol/L Blood Urea Nitrogen 16 mg/dl 17 mg/dl Creatinine 0.93 mg/dl 0.75 mg/dl Est Creatinine Clear Calc Drug Dose 55.2 ml/min 67.6 ml/min Estimated GFR () 68.7 89.1 Estimated GFR (Non- 59.3 76.9 BUN/Creatinine Ratio 17.4 22.8 Random Glucose 161 mg/dl 115 mg/dl Calcium Level 8.4 mg/dl 7.9 mg/dl Phosphorus Level 3.9 mg/dl 3.9 mg/dl Magnesium Level 2.3 mg/dl 2.4 mg/dl Total Creatine Kinase 45 U/L Creatine Kinase MB 1.5 ng/ml Creatine Kinase MB Ratio 3.3 Troponin I 0.022 ng/ml Thyroid Stimulating Hormone (TSH) 0.470 uIu/ml Pleural Fluid pH 7.39 Pleural Fluid Glucose 131 mg/dl Total Bilirubin 0.5 mg/dl Direct Bilirubin 0.1 mg/dl Aspartate Amino Transf (AST/SGOT) 22 U/L Alanine Aminotransferase (ALT/SGPT) 22 U/L Alkaline Phosphatase 145 U/L Total Protein 7.0 gm/dl Albumin 3.1 gm/dl Imaging: Echocardiography shows normal left ventricular systolic function, left ventricular hypertrophy, mild to moderate aortic stenosis. Pleural effusion is present, there is no significant pericardial effusion. EKG: On arrival atrial fibrillation with a heart rate of 83 bpm. Telemetry reviewed: Atrial fibrillation with intermittent rapid ventricular response Assessment & Plan #1. Atrial fibrillation: This was identified yesterday afternoon, and she has remained in it. She is no longer symptomatic. There is probably significant risk in her case to anticoagulation, it may be more prudent to try to convert the rhythm. It is relatively safe to do within 48 hours in my recommendation is to try intravenous amiodarone. I probably would not try electrical cardioversion at this point. I'm going to start intravenous amiodarone now. I discussed this at length with the patient and her daughter including other options and the pros and cons of amiodarone therapy. If this does not work we will need to make a decision regarding anticoagulation and long-term rhythm versus rate control. For now though it would be reasonable to try to return her to sinus rhythm. Thank you for allowing me to participate in her care.
[2016-12-07] MEDS ORDERED: AMIODARONE / D5W 100 ML IV SCH (17:30)
[2016-12-07] MEDS ORDERED: AMIODARONE / D5W 200 ML IV SCH (17:45)
--- NOTE | 2016-12-07 18:46 | ECHOCARDIOGRAM REPORT ---
*NOTICE TO RECEIVING CONSTITUTION PARTY AGENCY This information is strictly Confidential and protected under [place] law. [place] law prohibits you from making any further disclosure of this information unless further disclosure is expressly permitted by the written consent of the person to whom it pertains or is authorized by law. A general authorization for the release of medical or other information is not sufficient for this purpose. Hospital accepts no responsibility if the information is made available to any other person, INCLUDING THE PATIENT. Interpretation Summary * Name: IVONNE LEGGETT Study Date: 12/07/2016 10:45 AM BP: 135/73 mmHg * Patient Location: .[facility]\S\N275\S\2 HR: 64 * : 1940 (M/d/yyyy) Gender: Female Height: 65 in * Age: 76 yrs Ethnicity: [place] Weight: 191 lb * Ordering Physician: Yenny Broussard * Perrformed By: Felisha Amador * * Reason For Study: A-FIB * BSA: 1.9 m2 * -- Conclusions -- * 1. Normal LV size. Mild concentric LVH. * 2. Normal LV systolic function. LVEF 60-65%. No regional wall motion abnormalities. * 3. Mildly dilated RV with mild RV dysfunction. * 4. Mild to moderate . Mild aortic regurgitation. * 5. Mild mitral regurgitation. * 6. Diastolic dysfunction. * 8. Moderate TR. Mild pulmonary hypertension. Est PASP 45-50 mmHg. Est RA 8. * 9. Pleural effusion. * 10. Compared with prior study on 07/22/2016: Perciardial effusion has resolved. Procedure Details * Left Ventricle The left ventricle is grossly normal size. There is mild concentric left ventricular hypertrophy. Ejection Fraction = 60-65%. * Right Ventricle The right ventricle is mildly dilated. The right ventricular systolic function is mildly reduced. * Atria The left atrium is moderately dilated. The right atrium is moderate to severely dilated. No ASD detected; PFO is not assessed. * Mitral Valve There is moderate mitral annular calcification. There is mild mitral regurgitation. * Tricuspid Valve There is moderate tricuspid regurgitation. Hepatic vein systolic flow reversal * Aortic Valve The aortic valve is trileaflet. Mild to moderate valvular aortic stenosis. Mild aortic regurgitation. * Pulmonic Valve The pulmonary valve is inadequately visualized, but the Doppler data is adequate for interpretation. Pulmonic stenosis is absent. There is no significant pulmonary regurgitation. * Great Vessels The aortic root and proximal ascending aorta are normal sized. * Pericardium/Pleural There is no pericardial effusion. Moderate size left pleural effusion. * Great Vessels Mild pulmonary hypertension. Est PASP 45-50 mmHg. IVC < 2.1, < 50% change with respiration. Est RA 8 mmHg * Left Ventricular Diastolic Function Diastolic dysfunction * * MMode 2D Measurements and Calculations * IVSd 1.3 cm * IVSs 1.5 cm * * LVIDd 4.0 cm * LVIDs 2.6 cm * LVPWd 1.3 cm * LVPWs 2.4 cm * * IVS/LVPW 0.95 * FS 33.9 % * EDV(Teich) 68.8 ml * ESV(Teich) 25.2 ml * EF(Teich) 63.3 % * * EDV(cubed) 62.7 ml * ESV(cubed) 18.1 ml * EF(cubed) 71.1 % * % IVS thick 19.0 % * % LVPW thick 79.2 % * * LV mass(C)d 185.7 grams * LV mass(C)dI 95.7 grams/m\S\2 * LV mass(C)s 218.2 grams * LV mass(C)sI 112.5 grams/m\S\2 * * CO(Teich) 3.1 l/min * CI(Teich) 1.6 l/min/m\S\2 * SV(Teich) 43.6 ml * SI(Teich) 22.5 ml/m\S\2 * CO(cubed) 3.1 l/min * CI(cubed) 1.6 l/min/m\S\2 * SV(cubed) 44.5 ml * SI(cubed) 23.0 ml/m\S\2 * * ACS 1.8 cm * * asc Aorta Diam 3.6 cm * * LVOT diam 1.9 cm * LVOT area 2.7 cm\S\2 * * LVAd ap4 28.0 cm\S\2 * LVLd ap4 7.7 cm * EDV(MOD-sp4) 85.0 ml * LVAs ap4 14.1 cm\S\2 * LVLs ap4 5.6 cm * ESV(MOD-sp4) 30.0 ml * EF(MOD-sp4) 64.7 % * * LVAd ap2 23.0 cm\S\2 * LVLd ap2 7.8 cm * EDV(MOD-sp2) 57.0 ml * LVAs ap2 12.4 cm\S\2 * LVLs ap2 6.5 cm * ESV(MOD-sp2) 20.0 ml * EF(MOD-sp2) 64.9 % * * CO(MOD-sp4) 3.9 l/min * CI(MOD-sp4) 2.0 l/min/m\S\2 * SV(MOD-sp4) 55.0 ml * SI(MOD-sp4) 28.4 ml/m\S\2 * * CO(MOD-sp2) 2.6 l/min * CI(MOD-sp2) 1.3 l/min/m\S\2 * SV(MOD-sp2) 37.0 ml * SI(MOD-sp2) 19.1 ml/m\S\2 * * * * * * Doppler Measurements and Calculations * MV E max tisha 132.8 cm/sec * * MV P1/2t max tisha 167.1 cm/sec * MV P1/2t 75.3 msec * MVA(P1/2t) 2.9 cm\S\2 * MV dec slope 649.7 cm/sec\S\2 * MV dec time 0.29 sec * * Ao V2 max 314.9 cm/sec * Ao max PG 40.4 mmHg * Ao max PG (full) 36.1 mmHg * Ao V2 mean 179.5 cm/sec * Ao mean PG 16.9 mmHg * Ao V2 VTI 65.3 cm * MARII(V,A) 0.90 cm\S\2 * MARII(V,D) 0.90 cm\S\2 * * LV V1 max PG 4.3 mmHg * * LV V1 max 103.7 cm/sec * * PA V2 max 66.1 cm/sec * PA max PG 1.8 mmHg * * TR max tisha 294.5 cm/sec * * *
[2016-12-07] MEDS: AMIODARONE / D5W 200 ML IV SCH (23:59)
[2016-12-08] VITALS (9 sets, daily range): BP systolic 150–163; BP diastolic 78–90; PULSE 63–98; TEMP 36.5–37; O2SAT 93–100
[2016-12-08] MEDS: SODIUM CHLORIDE 0.9% 1000ML 1,000 ML IV SCH ×2 (01:03→15:00)
[2016-12-08] MEDS: ACETAMINOPHEN 325 MG TAB PO PRN (03:45)
[2016-12-08] MEDS: HEPARIN SOD 5000 UNIT/0.5 ML CARP SQ SCH (06:00)
[2016-12-08 07:27] LABS: BASO % 0.2 %; BASO ABS # 0.01 K/uL (0-0.2); COMPLETE YES; EOS % 0.3 %; HEMATOCRIT 36.5 % (37-47); IG% 0.3 %; LYMPH % 23.2 %; LYMPH ABS # 1.36 K/uL (1.2-3.4); MEAN CELL VOLUME 100.3 fL (80-100); MONO % 4.6 %; NEUT % 71.4 %; PLATELET COUNT 192 K/uL (130-400); RED BLOOD COUNT 3.64 M/uL (4.2-5.4); WHITE BLOOD COUNT 5.86 K/uL (4.8-10.8)
--- NOTE | 2016-12-08 07:29 | DIAGNOSTIC IMAGING REPORT ---
SINGLE VIEW CHEST CLINICAL HISTORY: Pleural effusion. FINDINGS: An AP, portable, upright chest radiograph is compared to study dated 12/07/2016 and correlated with chest CT dated 11/16/2016. The examination is degraded by portable technique and patient rotation. A right subclavian central venous infusion port is unchanged in position. The heart is enlarged and there is atherosclerotic calcification of the thoracic aorta. The pulmonary vasculature is noncongested. Chronic interstitial thickening is observed. Foci of linear scarring are again seen in both lungs. Layering pleural effusions with bibasilar consolidation are similar to yesterday. There is no pneumothorax. The skeletal structures are osteopenic. Degenerative change is present throughout the thoracic spine. Surgical clips are present in the left axilla. IMPRESSION: 1. Cardiomegaly without radiographic evidence of congestive failure. 2. Layering pleural effusions with bibasilar consolidation. These are similar to yesterday. Electronically signed by: Luigi Leon M.D. 12/08/2016 7:28 AM Dictated Date/Time: 12/08/2016 7:27 AM
[2016-12-08] MEDS: RANITIDINE HCL 150 MG TAB PO SCH (07:48)
[2016-12-08] MEDS: DOCUSATE SODIUM 100 MG CAP PO SCH ×2 (07:48→21:11)
[2016-12-08] MEDS: LISINOPRIL 40 MG TAB PO SCH (07:49)
[2016-12-08 07:53] LABS: BUN/CREATININE RATIO 22.2 (10-20); CREATININE 0.77 mg/dl (0.60-1.20); MAGNESIUM 2.4 mg/dl (1.8-2.4); POTASSIUM 3.9 mmol/L (3.5-5.1)
[2016-12-08 07:57] LABS: PHOSPHORUS 2.8 mg/dl (2.5-4.9)
--- NOTE | 2016-12-08 10:07 | SURGERY PROGRESS NOTE ---
DATE: 12/08/2016 Ms. Caban looks very good today. She is sitting up in a chair. She has no further coughing and no further pain where we did the thoracentesis. Her x-ray shows some fluid on the right, but quite frankly she is better from an auscultatory standpoint. Her biggest problem now she is in atrial fibrillation and this is being managed by Dr. Babcock. From our standpoint, we will just keep an eye on her. I would like check a chest x-ray every few days. At this point, I would not intervene further.
--- NOTE | 2016-12-08 10:30 | Hospitalist Progress Note ---
Hospitalist Progress Note Date of Service Dec 08, 2016. Subjective Pt evaluation today including: conversation w/ patient, conversation w/ family (daughter- at bedside), physical exam, chart review, lab review, review of studies, review of inpatient medication list Voiding: no voiding problems, no incontinence Patient states she is feeling well this AM. SOB has improved- currently requiring 2L O2 supplement. +cough. She is eating and drinking OK No BM x3 days- bowel regimen ordered- +flatus, no abdominal pain Patient spoke w/ Dr. Jackson this AM about a.fib control and anticoagulation- patient/daughter expressed no further questions/concerns Patient/daughter request palliative care consultation Patient denies any fever, chills, sweats, lightheadedness, dizziness, vision changes, CP, palpitations, edema, wheezing, abdominal pain, nausea, vomiting, diarrhea, urinary symptoms, melena, numbness/tingling, weakness, muscle/joint pain, anxiety/depression, active bleeding, or new skin discoloration/changes. Medications Current Inpatient Medications Medications (Trade) Dose Ordered Sig/Mau Route Start Time Stop Time Status Last Admin Dose Admin Heparin Sodium (Porcine) (Heparin Sq 5000 Unit/0.5ml) 5,000 unit Q8 SQ 12/07/16 06:00 01/06/17 05:59 Sodium Chloride 1,000 ml @ 75 mls/hr [id number] IV 12/06/16 23:00 01/05/17 22:59 12/08/16 01:03 75 MLS/HR Acetaminophen (Tylenol Tab) 650 mg Q4H PRN PO 12/06/16 21:30 01/05/17 21:29 12/08/16 03:45 650 MG Magnesium Hydroxide (Milk Of Magnesia Susp) 30 ml Q12H PRN PO 12/06/16 21:30 01/05/17 21:29 Ondansetron HCl (Zofran Inj) 4 mg Q6H PRN IV 12/06/16 21:30 01/05/17 21:29 12/07/16 09:20 4 MG Polyethylene (Miralax Powder Packet) 17 gm DAILY PRN PO 12/06/16 21:30 01/05/17 21:29 Clonidine HCl (Catapres Tab) 0.1 mg BID PRN PO 12/06/16 21:30 01/05/17 21:29 Docusate Sodium (coLACE CAP) 100 mg BID PO 12/07/16 09:00 01/06/17 08:59 12/08/16 07:48 100 MG Lisinopril (Zestril Tab) 40 mg QAM PO 12/07/16 09:00 01/06/17 08:59 12/08/16 07:49 40 MG Ondansetron HCl (Zofran Tab) 8 mg Q8 PRN PO 12/06/16 21:30 01/05/17 21:29 Prednisone (PredniSONE TAB) 4 mg QAM PO 12/07/16 09:00 01/06/17 08:59 12/08/16 07:49 4 MG Ranitidine HCl (zANTac TAB) 150 mg QAM PO 12/07/16 09:00 01/06/17 08:59 12/08/16 07:48 150 MG Tramadol HCl (Ultram Tab) 50 mg Q8H PRN PO 12/06/16 21:30 01/05/17 21:29 12/07/16 21:25 50 MG Triamterene/HCTZ (Maxzide 37.5/25 Tab) 1 tab Q2D PO 12/07/16 09:00 01/06/17 08:59 12/07/16 09:00 1 TAB Folic Acid (Folvite Tab) 1 mg SuMoWeThFrSa@0900 PO 12/07/16 09:00 01/06/17 08:59 12/08/16 07:48 1 MG Heparin Sodium (Porcine) (Heparin 100 Unit/ml 5ml Flush) 5 ml PRN PRN IV 12/07/16 01:00 01/06/17 00:59 Methotrexate (Methotrexate Tab) 7.5 mg Tu@0900 PO 12/13/16 09:00 01/12/17 08:59 Amiodarone HCL/ Dextrose 200 ml @ 16.7 mls/hr [id number] IV 12/07/16 23:50 01/06/17 23:49 12/07/16 23:59 16.7 MLS/HR Objective Vital Signs Date Time Temp Pulse Resp B/P (MAP) Pulse Ox O2 Delivery O2 Flow Rate FiO2 12/08/16 08:00 100 Nasal Cannula 12/08/16 07:51 36.5 74 16 153/82 (105) 100 12/08/16 04:00 36.8 98 20 163/86 (111) 93 Nasal Cannula 2.0 12/08/16 04:00 Nasal Cannula 2.0 12/08/16 00:00 Nasal Cannula 2.5 12/07/16 23:47 36.6 82 18 177/82 (113) 100 Nasal Cannula 12/07/16 20:00 Nasal Cannula 2.5 12/07/16 18:30 37.0 87 18 140/80 (100) 99 Nasal Cannula 3.0 12/07/16 16:33 145/82 (103) 12/07/16 16:00 Nasal Cannula 3.0 12/07/16 15:42 36.9 92 20 100 Nasal Cannula 3.0 12/07/16 12:00 Nasal Cannula 3.0 Physical Exam General Appearance: no apparent distress, + pertinent finding (O2 2L supplement on ) Eyes: normal inspection, PERRL ENT: hearing grossly normal Neck: supple Respiratory/Chest: no respiratory distress, no accessory muscle use, + decreased breath sounds (bilateral lung bases, R>L ), + wheezing (noted to right lung ) Cardiovascular: + systolic murmur, + irregularly irregular (rate controlled) Abdomen: normal bowel sounds, non tender, soft Extremities: no pedal edema, no calf tenderness Neurologic/Psychiatric: alert, normal mood/affect, oriented x 3 Skin: normal color, warm/dry, no rash Laboratory Results Last 24 Hours Test 12/08/16 07:10 White Blood Count 5.86 K/uL Red Blood Count 3.64 M/uL Hemoglobin 11.3 g/dL Hematocrit 36.5 % Mean Corpuscular Volume 100.3 fL Mean Corpuscular Hemoglobin 31.0 pg Mean Corpuscular Hemoglobin Concent 31.0 g/dl Platelet Count 192 K/uL Mean Platelet Volume 11.0 fL Neutrophils (%) (Auto) 71.4 % Lymphocytes (%) (Auto) 23.2 % Monocytes (%) (Auto) 4.6 % Eosinophils (%) (Auto) 0.3 % Basophils (%) (Auto) 0.2 % Neutrophils # (Auto) 4.18 K/uL Lymphocytes # (Auto) 1.36 K/uL Monocytes # (Auto) 0.27 K/uL Eosinophils # (Auto) 0.02 K/uL Basophils # (Auto) 0.01 K/uL RDW Standard Deviation 59.1 fL RDW Coefficient of Variation 16.2 % Immature Granulocyte % (Auto) 0.3 % Immature Granulocyte # (Auto) 0.02 K/uL Sodium Level 142 mmol/L Potassium Level 3.9 mmol/L Chloride Level 104 mmol/L Carbon Dioxide Level 34 mmol/L Anion Gap 4.0 mmol/L Blood Urea Nitrogen 17 mg/dl Creatinine 0.77 mg/dl Est Creatinine Clear Calc Drug Dose 66.0 ml/min Estimated GFR () 86.3 Estimated GFR (Non- 74.5 BUN/Creatinine Ratio 22.2 Random Glucose 91 mg/dl Calcium Level 8.0 mg/dl Phosphorus Level 2.8 mg/dl Magnesium Level 2.4 mg/dl Total Bilirubin 0.4 mg/dl Direct Bilirubin 0.1 mg/dl Aspartate Amino Transf (AST/SGOT) 22 U/L Alanine Aminotransferase (ALT/SGPT) 20 U/L Alkaline Phosphatase 118 U/L Total Protein 6.4 gm/dl Albumin 2.8 gm/dl Assessment and Plan 76-year-old female with past medical history of metastatic breast cancer, aortic stenosis, hypertension, ankylosing spondylitis, GERD, hyperparathyroidism , presented to the ER with complaints of shortness of breath and palpitations which started about 5:30 PM this evening. New onset atrial fibrillation- rate controlled: - Admit to tele for cardiac monitoring- no acute events, a.fib- rate controlled , paced at 60s - Cardiac enzymes- negative - Potassium, mag, TSH- WNL - ECHO 12/07: 1. Normal LV size. Mild concentric LVH. 2. Normal LV systolic function. LVEF 60-65%. No regional wall motion abnormalities. 3. Mildly dilated RV with mild RV dysfunction. 4. Mild to moderate . Mild aortic regurgitation. 5. Mild mitral regurgitation. 6. Diastolic dysfunction. 8. Moderate TR. Mild pulmonary hypertension. Est PASP 45-50 mmHg. Est RA 8. 9. Pleural effusion. 10. Compared with prior study on 07/22/2016: Pericardial effusion has resolved. - Consult cardiology, appreciate recommendations -- Started IV Amiodarone for rhythm conversion on 12/07- transition to PO 200 mg b.i.d. for 2 weeks (started on 12/08), then reduce to 200 mg daily -- Anticoagulation discussed w/ patient + cardiology- start Xarelto 20 mg daily -- Increase Dyazide from Q2D to daily SOB, likely secondary to pleural effusions from metastatic breast cancer: - O2 protocol, wean as tolerated- wears 2L at home at all times - Consult thoracic surgery, appreciate recommendations -- s/p R thoracentesis- drained ~1100 mL- pleural studies pending -- Following CXR Metastatic breast cancer- undergoing chemotherapy: - Follows w/ Dr. Barragan - Last chemo treatment on 12/06- scheduled for next treatment on 12/13 - Palliative care consultation requested- consulted Ankylosing spondylitis- STABLE: Methotrexate 2.5 mg weekly (Monday) and Prednisone 4 mg daily Hypertension: Lisinopril 40 mg daily and Dyazide daily GI Prophylaxis: Zantac, Maalox PRN, IV Zofran PRN, Colace and/or Milk of Mag PRN DVT Prophylaxis: Heparin SQ Code Status: LEVEL V, DNR Disposition: Discharge uncertain at this time- hopefully within the next 1-2 days. From home- social group worker consulted - PT/OT evaluations pending
--- NOTE | 2016-12-08 10:36 | Cardiology Follow-Up ---
Cardiology Follow-Up Date of Service Dec 08, 2016. Cardiology Follow-Up SUBJECTIVE: 76-year-old woman with metastatic breast carcinoma (undergoing chemotherapy), previous cardiomyopathy (current ejection fraction normal), moderate aortic stenosis, who has had recurrent pericardial effusions (resolved with pericardial window) and now has pleural effusion and new onset atrial fibrillation with currently controlled ventricular rate. She slept well overnight, noting no orthopnea or PND. She has dyspnea on exertion, but can walk to the bathroom without difficulty. She is comfortable at rest. No chest pain. No subjective palpitations. No orthostasis, presyncope, or syncope. PHYSICAL EXAMINATION No distress. Vitals: Afebrile. BP 153/82, pulse generally in the 80s and irregular, respirations 16 and unlabored. Skin: No unusual lesions or ecchymosis. HEENT: Unremarkable. Neck: Jugular venous pulse just above the clavicle at 90. Negative Kussmaul sign. Lungs: Moderately reduced breath sounds with dullness at the right base, no wheezing or obvious crackles. Cardiac: Irregular rhythm with audible but reduced aortic closure sound, 2/6 right upper sternal border systolic ejection murmur radiating to the carotids, left sternal border and heard in the axilla. No diastolic murmur distinct gallop. Abdomen: Benign. Extremities: Nontender without edema. Intact peripheral pulses. Neurologic: Normal affect, nonfocal DATA: Echocardiogram showed normal systolic function (EF 60 65 %), moderate aortic stenosis with mild mitral regurgitation, moderate tricuspid regurgitation with moderate pulmonary hypertension. Compared to the study from July, pericardial effusion has resolved (status post pericardial window). ECG today showed atrial fibrillation with controlled ventricular response at 76 ppm. Left ventricular hypertrophy with mild QRS widening. No ST abnormalities. Chest x-ray showed cardiomegaly without evidence of congestive heart failure, there were layering pleural effusions with bibasilar consolidation similar to yesterday's film. Normal electrolytes, BUN 17, creatinine 0.77, glucose 91. Magnesium 2.4. Albumin 2.8. Normal TSH. Troponin and CK were-2 days ago. Baseline coagulation studies normal. Hemoglobin 11.3 with normal white count and platelet count. IMPRESSION: 1. New onset atrial fibrillation, rate controlled. 2. Metastatic carcinoma, undergoing chemotherapy. 3. History of pericardial effusion, no recurrence. 4. Pleural effusions, status post thoracentesis. 5. Euvolemic to minimally hypervolemic. 6. History of cardiomyopathy, normal systolic function currently. 7. Moderate aortic stenosis, compensated. DISCUSSION: Patient with new onset atrial fibrillation who is currently rate controlled but not yet anticoagulated. She is highly likely to have relapse given her pericardial involvement with cancer, thus would agree with Dr. Babcock there is limited utility at performing electrical cardioversion at this time. However , there may be utility to regaining sinus rhythm, would switch from IV to oral amiodarone and continue this as an outpatient (200 mg b.i.d. for 2 weeks, then reduce to 200 mg daily). I discussed with the patient and her daughter the risks/benefits of anticoagulation, given increased thromboembolic risk from cancer and lack of any bleeding problems currently, reasonable to try Xarelto ( 20 milligram dose and she has normal renal function). If she has any bleeding problems, could discontinue the Xarelto, since she values quality of life rather than quantity given her diagnosis of metastatic cancer. Her volume status appears favorable, but would be reasonable to increase her Dyazide from every other day to daily to keep her slightly on the dry side to reduce rate of recurrence of her pleural effusions. If she continues to have her rate controlled overnight on oral amiodarone, may be reasonable for discharge tomorrow.
[2016-12-08] MEDS: AMIODARONE / D5W 200 ML IV SCH (11:16)
[2016-12-08] MEDS ORDERED: AMIODARONE 200 MG TAB PO ONE (11:45)
[2016-12-08] MEDS ORDERED: TRIAMTERENE/HCTZ 37.5/25MG TAB PO ONE (12:15)
[2016-12-08] MEDS ORDERED: RIVAROXABAN 20 MG TAB PO ONE (12:15)
[2016-12-08] MEDS ORDERED: NURSING VERBAL MED ORDER ONE (15:30)
[2016-12-08] MEDS ORDERED: SODIUM CHLORIDE 0.65% NA SOLN 45 ML (OCEAN) PRN (19:00)
[2016-12-08] MEDS ORDERED: NURSING DECISION MEDICATION ORDER SCH (19:00)
[2016-12-08] MEDS: AMIODARONE 200 MG TAB PO SCH (20:56)
[2016-12-08] MEDS: TRAMADOL HCL 50 MG TAB PO PRN (21:11)
[2016-12-09] VITALS (10 sets, daily range): BP systolic 132–164; BP diastolic 80–90; PULSE 57–70; TEMP 36.7–37.1; O2SAT 97–99
[2016-12-09] MEDS: ACETAMINOPHEN 325 MG TAB PO PRN ×2 (00:23→11:05)
[2016-12-09 06:36] LABS: BASO % 0.2 %; BASO ABS # 0.01 K/uL (0-0.2); COMPLETE YES; EOS % 0.4 %; HEMATOCRIT 35.9 % (37-47); IG% 0.2 %; LYMPH % 22.9 %; LYMPH ABS # 1.09 K/uL (1.2-3.4); MEAN CELL VOLUME 99.2 fL (80-100); MEAN CORPUSCULAR HEMOGLOBIN 30.1 pg (25-34); MEAN CORPUSCULAR HGB CONC 30.4 g/dl (32-36); MEAN PLATELET VOLUME 11.1 fL (7.4-10.4); MONO % 2.1 %; NEUT % 74.2 %; PLATELET COUNT 191 K/uL (130-400); RED BLOOD COUNT 3.62 M/uL (4.2-5.4); WHITE BLOOD COUNT 4.75 K/uL (4.8-10.8)
[2016-12-09 07:15] LABS: BUN/CREATININE RATIO 20.1 (10-20); CALCIUM 8.1 mg/dl (8.5-10.1); CREATININE 0.79 mg/dl (0.60-1.20); MAGNESIUM 2.2 mg/dl (1.8-2.4); POTASSIUM 3.8 mmol/L (3.5-5.1)
[2016-12-09] MEDS: LISINOPRIL 40 MG TAB PO SCH (08:08)
[2016-12-09] MEDS: AMIODARONE 200 MG TAB PO SCH (08:08)
[2016-12-09] MEDS: DOCUSATE SODIUM 100 MG CAP PO SCH (08:40)
[2016-12-09] MEDS: RANITIDINE HCL 150 MG TAB PO SCH (08:40)
[2016-12-09] MEDS ORDERED: TRIAMTERENE/HCTZ 37.5/25MG TAB PO SCH (09:00)
[2016-12-09] MEDS ORDERED: RIVAROXABAN 20 MG TAB PO SCH (09:00)
--- NOTE | 2016-12-09 09:48 | SURGERY PROGRESS NOTE ---
DATE: 12/09/2016 Ms. Caban is seen today. She remains in atrial fibrillation. Pulse oximetry on 2 liters is 98%. A chest x-ray yesterday looked about the same. I think she definitely improved since we did her thoracentesis. This is a malignant right pleural effusion. At this point, I would not do anything further. The patient looks very good. She sounds good although she does have decreased breath sounds at both bases. At this point, I would not intervene further in her right chest. We will follow her up as an outpatient. ISIDRA
[2016-12-09] MEDS: ONDANSETRON INJ 2 MG/ML 2 ML VIAL IV PRN (13:28)
[2016-12-09] MEDS ORDERED: TRIATAB3 PO (14:15)
[2016-12-09] MEDS ORDERED: CRD200 PO (14:16)
[2016-12-09] MEDS ORDERED: XRL20 PO (14:16)
--- NOTE | 2016-12-09 14:23 | Discharge Instructions ---
Discharge Instructions Date of Service Dec 09, 2016. Admission Reason for Admission: Atrial Fibrillation, Difficulty Breathing Discharge Discharge Diagnosis / Problem: New onset atrial fibrillation; pleural effusion Discharge Goals Goal(s): Decrease discomfort, Improve function, Learn about illness, Diagnostic testing, Therapeutic intervention, Prevent Disease Progression Activity Recommendations Activity Limitations: resume your previous activity . Instructions / Follow-Up Instructions / Follow-Up New/changed medications 1. Amiodarone 200 mg by mouth twice per day x2 weeks, then dose will be DECREASED to ONCE daily- dose decrease will be on 12/23 2. Xarelto 20 mg by mouth once daily 3. Dyazide was INCREASED to ONCE DAILY from once every other day Resume all other regular home medications as prescribed Please follow-up with your PCP within 5-7 days Please follow-up with Dr. Tena as instructed by him Please follow-up with Cardiology as instructed by Dr. Jackson Please follow-up/keep all of your subspecialty appointments Current Hospital Diet Patient's current hospital diet: Regular Diet Discharge Diet Recommended Diet: Regular Diet Procedures Procedures Performed: Thoracentesis Pending Studies Studies pending at discharge: yes List of pending studies: Pleural studies CXR Laboratory Results Last 24 Hours Test 12/09/16 06:20 White Blood Count 4.75 K/uL Red Blood Count 3.62 M/uL Hemoglobin 10.9 g/dL Hematocrit 35.9 % Mean Corpuscular Volume 99.2 fL Mean Corpuscular Hemoglobin 30.1 pg Mean Corpuscular Hemoglobin Concent 30.4 g/dl Platelet Count 191 K/uL Mean Platelet Volume 11.1 fL Neutrophils (%) (Auto) 74.2 % Lymphocytes (%) (Auto) 22.9 % Monocytes (%) (Auto) 2.1 % Eosinophils (%) (Auto) 0.4 % Basophils (%) (Auto) 0.2 % Neutrophils # (Auto) 3.52 K/uL Lymphocytes # (Auto) 1.09 K/uL Monocytes # (Auto) 0.10 K/uL Eosinophils # (Auto) 0.02 K/uL Basophils # (Auto) 0.01 K/uL RDW Standard Deviation 56.8 fL RDW Coefficient of Variation 15.7 % Immature Granulocyte % (Auto) 0.2 % Immature Granulocyte # (Auto) 0.01 K/uL Sodium Level 140 mmol/L Potassium Level 3.8 mmol/L Chloride Level 102 mmol/L Carbon Dioxide Level 32 mmol/L Anion Gap 6.0 mmol/L Blood Urea Nitrogen 16 mg/dl Creatinine 0.79 mg/dl Est Creatinine Clear Calc Drug Dose 64.8 ml/min Estimated GFR () 83.7 Estimated GFR (Non- 72.2 BUN/Creatinine Ratio 20.1 Random Glucose 96 mg/dl Calcium Level 8.1 mg/dl Phosphorus Level 3.0 mg/dl Magnesium Level 2.2 mg/dl Total Bilirubin 0.7 mg/dl Direct Bilirubin 0.2 mg/dl Aspartate Amino Transf (AST/SGOT) 25 U/L Alanine Aminotransferase (ALT/SGPT) 23 U/L Alkaline Phosphatase 115 U/L Total Protein 6.4 gm/dl Albumin 2.8 gm/dl Medical Emergencies . Who to Call and When: Medical Emergencies: If at any time you feel your situation is an emergency, please call 911 immediately. . Non-Emergent Contact Non-Emergency issues call your: Primary Care Provider . . "Provider Documentation" section prepared by Anitra Ashley. . VTE Core Measure Inpt VTE Proph given/why not?: Unfractionated heparin SQ, SCD's
--- NOTE | 2016-12-09 14:39 | Discharge Summary ---
Discharge Summary Date of Service Dec 09, 2016. Discharge Summary Admission Date: Dec 06, 2016 at 21:33 Discharge Date: Dec 09, 2016 Discharge Disposition: Home with services Principal Diagnosis: New onset a.fib Problems/Secondary Diagnoses: New onset atrial fibrillation SOB, likely secondary to pleural effusions from metastatic breast cancer Metastatic breast cancer Ankylosing spondylitis Hypertension Immunizations: Have You Had Influenza Vaccine: Yes History of Tetanus Vaccine?: No History of Pneumococcal: No History of Hepatitis B Vaccine: No Procedures: DICTATED BY: Tacho Tena MD DATE OF OPERATION: 12/07/2016 PROCEDURE: Right thoracentesis under ultrasound guidance. SURGEON: Dr. Tena. ENAMEL CRACKER: CINTIA Mcdaniels. ANESTHESIA: Local. SPECIFICS OF PROCEDURE: With the patient in a seated position, ultrasound was used to barney a spot at about the 8th interspace. She was prepped and draped in usual sterile fashion after appropriate timeout had been called. The patient had her skin anesthetized with 25-gauge needle, 1% Xylocaine. A larger bore needle was used to anesthetize the deeper subcutaneous tissues and pleura, and then when free flowing fluid was obtained, a guidewire was inserted through the needle and needle removed. A triple lumen catheter was slid in approximately 17 cm and guidewire removed. Approximately 1100 mL of a rust-colored fluid was drained. She had reexpansion coughing, so we stopped at about 1100 mL, although she had more fluid in there. A chest x-ray is pending at this time. I attest to the content of the Intraoperative Record and any orders documented therein. Any exceptions are noted below. Dictated: 12/07/16 1007 Transcribed: 12/07/16 1021 <Electronically signed by Tacho Tena MD> Signed: 12/07/16 1125 ES Tacho Tena MD The status of this report is Signed. Draft = Not yet reviewed or approved by Medical Physician. Signed = Reviewed and approved by Medical Physician. SINGLE VIEW CHEST CLINICAL HISTORY: Atypical chest pain. FINDINGS: An AP, portable, upright chest radiograph is compared to study dated 12/05/2016 and correlated with chest CT dated 11/16/2016. The examination is degraded by portable technique and patient rotation. A right subclavian central venous infusion port is unchanged in position. The heart is enlarged and there is atherosclerotic calcification of the thoracic aorta. The pulmonary vasculature is noncongested. Chronic interstitial thickening is observed. Foci of linear scarring are again seen in both lungs. Layering pleural effusions with bibasilar consolidation is unchanged from yesterday. There is no pneumothorax. The skeletal structures are osteopenic. Degenerative change is present throughout the thoracic spine. Surgical clips are present in the left axilla. IMPRESSION: 1. Cardiomegaly without radiographic evidence of congestive failure. 2. Layering pleural effusions with bibasilar consolidation. This is unchanged from yesterday. Electronically signed by: Luigi Leon M.D. 12/06/2016 7:43 PM Dictated Date/Time: 12/06/2016 7:41 PM The status of this report is Signed. Draft = Not yet reviewed or approved by Radiologist. Signed = Reviewed and approved by Radiologist. SINGLE VIEW CHEST CLINICAL HISTORY: Thoracentesis. FINDINGS: An AP, portable, upright chest radiograph is compared to study dated 12/06/2016 and correlated with chest CT dated 11/16/2016. The examination is degraded by portable technique and patient rotation. A right subclavian central venous infusion port is unchanged in position. The heart is enlarged and there is atherosclerotic calcification of the thoracic aorta. The pulmonary vasculature is noncongested. Chronic interstitial thickening is observed. Foci of linear scarring are again seen in both lungs. Layering pleural effusions with bibasilar consolidation are again seen. The right pleural effusion may have modestly decreased in size from yesterday. There is no pneumothorax. The skeletal structures are osteopenic. Degenerative change is present throughout the thoracic spine. Surgical clips are present in the left axilla. IMPRESSION: 1. Cardiomegaly without radiographic evidence of congestive failure. 2. Layering pleural effusions with bibasilar consolidation. The right pleural effusion may have modestly decreased in size from yesterday. 3. No pneumothorax is identified. Electronically signed by: Luigi Leon M.D. 12/07/2016 10:27 AM Dictated Date/Time: 12/07/2016 10:25 AM The status of this report is Signed. Draft = Not yet reviewed or approved by Radiologist. Signed = Reviewed and approved by Radiologist. SINGLE VIEW CHEST CLINICAL HISTORY: Pleural effusion. FINDINGS: An AP, portable, upright chest radiograph is compared to study dated 12/07/2016 and correlated with chest CT dated 11/16/2016. The examination is degraded by portable technique and patient rotation. A right subclavian central venous infusion port is unchanged in position. The heart is enlarged and there is atherosclerotic calcification of the thoracic aorta. The pulmonary vasculature is noncongested. Chronic interstitial thickening is observed. Foci of linear scarring are again seen in both lungs. Layering pleural effusions with bibasilar consolidation are similar to yesterday. There is no pneumothorax. The skeletal structures are osteopenic. Degenerative change is present throughout the thoracic spine. Surgical clips are present in the left axilla. IMPRESSION: 1. Cardiomegaly without radiographic evidence of congestive failure. 2. Layering pleural effusions with bibasilar consolidation. These are similar to yesterday. Electronically signed by: Luigi Leon M.D. 12/08/2016 7:28 AM Dictated Date/Time: 12/08/2016 7:27 AM The status of this report is Signed. Draft = Not yet reviewed or approved by Radiologist. Signed = Reviewed and approved by Radiologist. Consultations: Thoracic surgery- Dr. Tena Cardiology- Dr. Jackson and Dr. Babcock Medication Reconciliation New Medications: Amiodarone HCl (Amiodarone HCl) 200 Mg Tab 200 MG PO BID for 30 Days, #60 TAB Rivaroxaban (Xarelto) 20 Mg Tab 20 MG PO DAILY for 30 Days, #30 TAB Changed Medications: Triamterene/Hctz (Triamterene/Hctz 37.5-25MG) 1 Tab Tab 1 TAB PO DAILY for 30 Days, #30 TAB (Changed from: Q2D) Continued Medications: Calcium Carbonate-Vitamin D (Calcium + D3 600-200 mg-Unit) 1 Tab Tab 1 TAB PO QAM Cholecalciferol (Vitamin D) 1,000 Unit Tab 2000 UNIT PO QAM Clonidine Hcl (Catapres) 0.1 Mg Tab 0.1 MG PO BID PRN for PRN, TAB PRN BP 170 MMHG OR HIGH MAY TAKE UPTO 2 TABS Docusate Sodium (Colace) 100 Mg Cap 1 CAP PO BID for 30 Days, #60 CAP Folic Acid (Folvite) 1 Mg Tab 1 MG PO UD, TAB DOES NOT TAKE ON TUESDAYS Lisinopril (Zestril) 40 Mg Tab 40 MG PO QAM for 90 Days, #90 TAB 1 Refill Methotrexate (Methotrexate) 2.5 Mg Tab 7.5 MG PO Monday, TAB TAKES IN AM Ondansetron Hcl (Zofran) 8 Mg Tab 8 MG PO Q8 PRN for Nausea, TAB Prednisone (Prednisone) 1 Mg Tab 4 MG PO QAM, TAB Prochlorperazine Maleate (Compazine) 10 Mg Tab 1 TAB PO Q6 PRN for Nausea or Vomiting for 7 Days, #30 TAB 3 Refills Ranitidine (Zantac) 150 Mg Tab 150 MG PO QAM, TAB Tramadol (Ultram) 50 Mg Tab 50 MG PO Q8H PRN for Pain, TAB Discharge Exam Review of Systems: Constitutional: No fever, No chills, No sweats, No weakness ENT: No hearing loss Respiratory: No cough, No shortness of breath, No hemoptysis Cardiovascular: No chest pain, No edema, No palpitations Abdomen: No pain, No nausea, No vomiting, No diarrhea, No constipation Musculoskeletal: No joint pain, No muscle pain, No swelling, No calf pain Genitourinary - Female: No dysuria, No hematuria Neurologic: No weakness, No numbness/tingling Psychiatric: No depression symptoms, No anxiety Hematologic / Lymphatic: No abnormal bleeding/bruising Integumentary: No rash, No itch, No new/changing skin lesions Physical Exam: General Appearance: no apparent distress, + obese Eyes: normal inspection, PERRL ENT: hearing grossly normal Neck: supple Respiratory/Chest: lungs clear, no respiratory distress, no accessory muscle use, + decreased breath sounds (bilateral lung bases) Cardiovascular: + systolic murmur, + irregularly irregular (rate controlled ) Abdomen / GI: normal bowel sounds, non tender, soft Extremities: no calf tenderness, no pedal edema, + swelling (LUE) Neurologic/Psychiatric: alert, normal mood/affect, oriented x 3 Skin: normal color, warm/dry, no rash Hospital Course 76-year-old female with past medical history of metastatic breast cancer, aortic stenosis, hypertension, ankylosing spondylitis, GERD, hyperparathyroidism , presented to the ER with complaints of shortness of breath and palpitations which started about 5:30 PM this evening. New onset atrial fibrillation- rate controlled: - Admit to tele for cardiac monitoring- no acute events, a.fib- rate controlled , paced at 60s - Cardiac enzymes- negative - Potassium, mag, TSH- WNL - ECHO 12/07: 1. Normal LV size. Mild concentric LVH. 2. Normal LV systolic function. LVEF 60-65%. No regional wall motion abnormalities. 3. Mildly dilated RV with mild RV dysfunction. 4. Mild to moderate . Mild aortic regurgitation. 5. Mild mitral regurgitation. 6. Diastolic dysfunction. 8. Moderate TR. Mild pulmonary hypertension. Est PASP 45-50 mmHg. Est RA 8. 9. Pleural effusion. 10. Compared with prior study on 07/22/2016: Pericardial effusion has resolved. - Consult cardiology, appreciate recommendations -- Started IV Amiodarone for rhythm conversion on 12/07- transition to PO 200 mg b.i.d. for 2 weeks (started on 12/08), then reduce to 200 mg daily (start 12/23) -- Anticoagulation discussed w/ patient + cardiology- start Xarelto 20 mg daily -- Increase Dyazide from Q2D to daily -- f/u outpatient SOB, likely secondary to pleural effusions from metastatic breast cancer: - O2 protocol, wean as tolerated- wears 2L at home at all times - Consult thoracic surgery, appreciate recommendations -- s/p R thoracentesis- drained ~1100 mL- pleural studies pending -- Following CXR -- f/u outpatient Metastatic breast cancer- undergoing chemotherapy: - Follows w/ Dr. Barragan - Last chemo treatment on 12/06- scheduled for next treatment on 12/13 - Palliative care consultation requested- consulted -- Patient is to have follow-up with Dr. Smalls on 12/12 for a second opinion. At that time, patient will further make her decision on continuing chemotherapy vs. hospice. -- POLST completed Ankylosing spondylitis- STABLE: Methotrexate 2.5 mg weekly (Monday) and Prednisone 4 mg daily Hypertension: Lisinopril 40 mg daily and Dyazide daily GI Prophylaxis: Zantac, Maalox PRN, IV Zofran PRN, Colace and/or Milk of Mag PRN DVT Prophylaxis: Heparin SQ Code Status: LEVEL V, DNR Disposition: Discharge to home w/ [facility]- patient states she currently [facility] - PCP follow-up appointment scheduled for 12/19 @1:40PM Total Time Spent: Greater than 30 minutes This includes examination of the patient, discharge planning, medication reconciliation, and communication with other providers. Discharge Instructions Please refer to the electronic Patient Visit Report (Discharge Instructions) for additional information. Follow-Up Please follow-up with your PCP within 5-7 days Please follow-up with Dr. Tena as instructed by him Please follow-up with Cardiology as instructed by Dr. Jackson Please follow-up/keep all of your subspecialty appointments Additional Copies To Ernesto Becker M.D.
--- NOTE | 2016-12-09 14:55 | Cardiology Follow-Up ---
Subjective Date of Service: Dec 09, 2016. Pt evaluation today including: conversation w/ patient, conversation w/ family , physical exam, lab review, review of inpatient medication list History of Present Illness This is a 76-year-old woman who has a history of metastatic breast cancer which is currently being treated, as well as a cardiomyopathy with an ejection fraction of 40% range and moderate aortic stenosis. She had recurrent pericardial effusions and had pleurodesis followed by a pericardial window. She presented with sudden shortness of breath starting in the afternoon of 2016 and notes that her face turned red and she had a dry mouth. She also had palpitations. She therefore presented to the emergency room where she was found to be in atrial fibrillation. It was thought that this might be paroxysmal, however overnight she remained in atrial fibrillation. I therefore started intravenous amiodarone to see if we can convert her rhythm, this however was unsuccessful. On 12/08/2016 she was therefore converted to oral amiodarone and placed on Xarelto. Currently she feels well, she may have had a tiny bit of a nosebleed but no other evidence of bleeding on Xarelto. She is not having any side effects on the amiodarone. She no longer is having palpitations. Social History Smoking Status: Former Smoker History of Alcohol Use: Yes (1-2 wine every other day.) Review of Systems Respiratory: No cough, No wheezing, No shortness of breath, No dyspnea on exertion Cardiac: + see HPI, No chest pain, No orthopnea, No PND, No edema, No palpitations Medications Cardiovascular: Item Value Date Time Triamterene/HCTZ 1 tab 12/09/16 09 (Maxzide 37.5/25 DAILY/PO 12/09/16 0807 Tab) Rivaroxaban 20 mg 12/09/16 0900 (Xarelto Tab) DAILY/PO 12/09/16 0808 Amiodarone HCl 200 mg 12/08/16 2100 (Cordarone Tab) BID/PO 12/09/16 08 Lisinopril 40 mg 12/07/16 09 (Zestril Tab) QAM/PO 12/09/16 0808 Objective Vital Signs Past 12 Hours Date Time Temp Pulse Resp B/P (MAP) Pulse Ox O2 Delivery O2 Flow Rate FiO2 12/09/16 12:00 97 Nasal Cannula 2.0 12/09/16 11:45 37.1 66 19 160/86 (110) 99 12/09/16 08:05 37.1 70 19 132/84 (100) 98 Nasal Cannula 2.0 12/09/16 08:00 98 Nasal Cannula 2.0 12/09/16 04:16 36.7 57 18 164/90 (114) 98 12/09/16 04:00 98 Nasal Cannula 2.0 Last Recorded Weight-Kilograms: 86.600 Intake & Output 8-Hour Column 12/09/16 12/10/16 12/10/16 16:00 00:00 08:00 Intake Total 500 ml Output Total 500 ml Balance 0 ml 24-Hour Column 12/10/16 08:00 Intake Total 500 ml Output Total 500 ml Balance 0 ml Physical Exam Constitutional: General Apperance: heathly-appearing Level of Distress: NAD Lungs: Respiratory effort: no dyspnea, good air movement Auscultation: no wheezing, decreased breath sounds Cardiovascular: Heart Auscultation: no rubs, no gallops, II/ KENNY, irregular rate rhythm Peripheral Pulses: Bruits: none appreciated Extremities: no edema, edema (L arm) Data Laboratory Results: Last 24 Hours Test 12/09/16 06:20 White Blood Count 4.75 K/uL Red Blood Count 3.62 M/uL Hemoglobin 10.9 g/dL Hematocrit 35.9 % Mean Corpuscular Volume 99.2 fL Mean Corpuscular Hemoglobin 30.1 pg Mean Corpuscular Hemoglobin Concent 30.4 g/dl Platelet Count 191 K/uL Mean Platelet Volume 11.1 fL Neutrophils (%) (Auto) 74.2 % Lymphocytes (%) (Auto) 22.9 % Monocytes (%) (Auto) 2.1 % Eosinophils (%) (Auto) 0.4 % Basophils (%) (Auto) 0.2 % Neutrophils # (Auto) 3.52 K/uL Lymphocytes # (Auto) 1.09 K/uL Monocytes # (Auto) 0.10 K/uL Eosinophils # (Auto) 0.02 K/uL Basophils # (Auto) 0.01 K/uL RDW Standard Deviation 56.8 fL RDW Coefficient of Variation 15.7 % Immature Granulocyte % (Auto) 0.2 % Immature Granulocyte # (Auto) 0.01 K/uL Sodium Level 140 mmol/L Potassium Level 3.8 mmol/L Chloride Level 102 mmol/L Carbon Dioxide Level 32 mmol/L Anion Gap 6.0 mmol/L Blood Urea Nitrogen 16 mg/dl Creatinine 0.79 mg/dl Est Creatinine Clear Calc Drug Dose 64.8 ml/min Estimated GFR () 83.7 Estimated GFR (Non- 72.2 BUN/Creatinine Ratio 20.1 Random Glucose 96 mg/dl Calcium Level 8.1 mg/dl Phosphorus Level 3.0 mg/dl Magnesium Level 2.2 mg/dl Total Bilirubin 0.7 mg/dl Direct Bilirubin 0.2 mg/dl Aspartate Amino Transf (AST/SGOT) 25 U/L Alanine Aminotransferase (ALT/SGPT) 23 U/L Alkaline Phosphatase 115 U/L Total Protein 6.4 gm/dl Albumin 2.8 gm/dl Telemetry reviewed: Atrial fibrillation with a well-controlled heart rate. Assessment and Plan #1. Atrial fibrillation: She presented with symptomatic atrial fibrillation, which was new onset to our knowledge. She has remained in it despite intravenous amiodarone, now converted to oral. She is on Xarelto as an anticoagulant. Her rate is well controlled and she is currently asymptomatic. It should be safe to send her home on Xarelto and amiodarone. As an outpatient we will need to determine whether we should consider cardioversion, maintenance of amiodarone or just rate control. I'll make sure she has no appointment with Dr. Jackson in around one month. Thank you for allowing me to participate in her care.
[2016-12-13] MEDS ORDERED: METHOTREXATE 2.5 MG TAB PO SCH ×2 (09:00)
[2017-05-05] MEDS ORDERED: FMR25 PO (14:45)
[2017-05-05] MEDS ORDERED: TRIA37.5 PO (14:45)
[2017-05-05] MEDS ORDERED: DENOINJ SC (14:45)
[2017-05-05] MEDS ORDERED: RIVA1TAB4 PO (14:45)
[2017-05-05] MEDS ORDERED: METO25TA56 PO (14:45)
== END 2016-12-09 18:09 | disposition home health service (06) | DRG 309 ==
LOC: C.EDB 18:12 → C.MED 21:33 → ENRESERV 22:08 → C.2T 12-07 18:29
PROVIDERS: ADMIT Family Medicine; ATTEND Hospitalist
PROC: 0W993ZZ Drainage of Right Pleural Cavity, Percutaneous Approach (ICD-10-PCS; principal; 2016-12-07)
DX: I48.91 Unspecified atrial fibrillation (principal); J91.0 Malignant pleural effusion; C79.9 Secondary malignant neoplasm of unspecified site; J90 Pleural effusion, not elsewhere classified; C50.919 Malignant neoplasm of unspecified site of unspecified female breast; M45.9 Ankylosing spondylitis of unspecified sites in spine; I10 Essential (primary) hypertension; Z87.891 Personal history of nicotine dependence; E21.3 Hyperparathyroidism, unspecified; Z66 Do not resuscitate; Z79.52 Long term (current) use of systemic steroids; K21.9 Gastro-esophageal reflux disease without esophagitis; Z99.81 Dependence on supplemental oxygen; I35.0 Nonrheumatic aortic (valve) stenosis; I51.7 Cardiomegaly; C50.912 Malignant neoplasm of unspecified site of left female breast

== ENCOUNTER → 2017-01-17 | Outpatient (CLI) | payer BC ==
[~2017-01-17] MED LIST changes: +CRD200 PO; +XRL20 PO
--- NOTE | 2017-01-17 10:20 | DIAGNOSTIC IMAGING REPORT ---
CHEST 2 VIEWS ROUTINE CLINICAL HISTORY: 77 years-old Female presenting with Pericardial effusion. TECHNIQUE: PA and lateral views of the chest were obtained. COMPARISON: 12/08/2016. FINDINGS: Right subclavian Mediport terminates in the region of the superior cavoatrial junction. Atherosclerosis of the aortic arch. Cardiopericardial silhouette enlargement as on prior exam. Persistent bibasilar linear groundglass opacities. Persistent bilateral [id number] pleural effusions. No pneumothorax. Osseous structures and upper abdomen within normal limits. Left axillary surgical clips also noted. IMPRESSION: 1. Cardiopericardial silhouette enlargement could represent cardiomegaly or pericardial effusion. 2. Stable bibasilar opacities and small to moderate pleural effusions. Infection not excluded. Electronically signed by: Dale Block M.D. 01/17/2017 10:18 AM Dictated Date/Time: 01/17/2017 10:15 AM
== END | disposition home or self-care (01) ==
LOC: C.RAD1850 09:59
PROVIDERS: ATTEND Physician Assistant
DX: I31.3 Pericardial effusion (noninflammatory) (principal)

== ENCOUNTER → 2017-03-14 | Outpatient (CLI) | payer BC ==
--- NOTE | 2017-03-15 14:20 | MAMMOGRAPHY REPORT ---
UNILATERAL RIGHT DIGITAL SCREENING MAMMOGRAM TOMOSYNTHESIS WITH CAD: 03/14/2017 CLINICAL HISTORY: Asymptomatic. Personal history of breast cancer. TECHNIQUE: Right breast tomosynthesis in addition to standard 2D mammography was performed. Current regan palmer was also evaluated with a Computer Aided Detection (CAD) system. COMPARISON: Comparison is made to exams dated: 03/08/2016 mammogram, 03/13/2015 ultrasound, 03/13/2015 m ammogram, 03/03/2015 mammogram, and 02/27/2014 mammogram - [facility]. BREAST COMPOSITION: There are scattered areas of fibroglandular density in the right breast. FINDINGS: There is a newly visualized 6 mm partially circumscribed rounded mass in the upper outer a nterior right breast, for which additional targeted ultrasound and possible additional mammographic v iews are recommended. The hub of the Port-A-Cath projects over the superior right pectoralis muscle on the MLO view. There are scattered benign calcifications and minimal vascular calcification in the right breast. Mild tr abecular edema, new from the prior exam possibly related to treatment. No other suspicious mass, arc hitectural distortion or cluster of microcalcifications is seen. IMPRESSION: ACR BI-RADS CATEGORY 0: INCOMPLETE EVALUATION: NEED ADDITIONAL IMAGING EVALUATION The newly visualized 6 mm, partially circumscribed rounded mass in the upper outer anterior right ronnie ast needs additional evaluation. The patient will be called to schedule an appointment. Approximately 10% of breast cancers are not detected with mammography. A negative mammographic report should not delay biopsy if a clinically suggestive mass is present. Karissa Segundo M.D. ay/:03/14/2017 16:32:31 Neon Molder: Jeanette Loco, [facility] letter sent: Addl Imaging 0 BI-RADS Code: ACR BI-RADS Category 0: Incomplete Evaluation: Need Additional Imaging Evaluation
== END | disposition home or self-care (01) ==
LOC: C.MAMM 11:26
PROVIDERS: ATTEND Obstetrics & Gynecology
DX: Z12.31 Encounter for screening mammogram for malignant neoplasm of breast (principal); N63 Unspecified lump in breast; Z85.3 Personal history of malignant neoplasm of breast; Z90.12 Acquired absence of left breast and nipple

== ENCOUNTER → 2017-03-21 | Outpatient (CLI) | payer BC ==
--- NOTE | 2017-03-21 12:08 | DIAGNOSTIC IMAGING REPORT ---
CHEST 2 VIEWS ROUTINE CLINICAL HISTORY: 77 years-old Female presenting with pleural effusion. TECHNIQUE: PA and lateral views of the chest were obtained. COMPARISON: 01/2017. FINDINGS: Right subclavian Mediport terminates at the superior cavoatrial junction. Atherosclerosis of the aortic arch. Mild tortuosity of the descending thoracic aorta. Mild prominence of the cardiac silhouette, stable to slightly decreased from prior. Stable to slight interval decrease in bibasilar opacities and bilateral pleural effusions. Fluid is again noted in the minor fissure. Surgical clips in the left axilla again noted. Deformity of a right lateral rib unchanged in appearance, possibly old fracture deformity. Upper abdomen normal. IMPRESSION: 1. Stable to slight interval decrease in chronic bibasilar opacities and pleural effusions. Electronically signed by: Dale Block M.D. 03/21/2017 12:07 PM Dictated Date/Time: 03/21/2017 12:04 PM
== END | disposition home or self-care (01) ==
LOC: C.RAD1850 10:04
PROVIDERS: ATTEND Physician Assistant
DX: J90 Pleural effusion, not elsewhere classified (principal); R91.8 Other nonspecific abnormal finding of lung field

== ENCOUNTER → 2017-03-24 | Outpatient (CLI) | payer BC ==
--- NOTE | 2017-03-28 09:41 | MAMMOGRAPHY REPORT ---
ULTRASOUND OF RIGHT BREAST: 03/24/2017 CLINICAL HISTORY: Callback from screening mammogram for right breast mass. COMPARISON: Comparison is made to exams dated: 03/14/2017 mammogram, 03/08/2016 mammogram, 03/13/2015 ul trasound, 03/13/2015 mammogram, 03/03/2015 mammogram, and 02/27/2014 mammogram - [facility]ter. TECHNIQUE: Real-time targeted ultrasound of the right breast was performed. FINDINGS: Real-time, high resolution targeted ultrasound was performed of the right upper outer quad rant in the region of the mammographic mass. In the right breast at 11:00 periareolar region, there is an oval circumscribed anechoic mass which measures 5 x 7 x 4 mm. A punctate echogenic focus is se en within the mass, consistent with a coarse calcification as seen mammographically. This correspond s with the mammographic mass and is consistent with a benign cyst. IMPRESSION: ACR BI-RADS CATEGORY 2: BENIGN Benign 7 mm cyst in the right breast at 11:00 on ultrasound, which corresponds with the mammographic mass. There is no sonographic evidence of malignancy. A 1 year screening mammogram is recommended. The patient was verbally notified of the results. Devorah Ennis M.D. /:03/24/2017 11:40:45 C D Still Operator: Parris COY)(M), [facility] letter sent: Normal 1/2 BI-RADS Code: ACR BI-RADS Category 2: Benign
== END | disposition home or self-care (01) ==
LOC: C.MAMM 11:23
PROVIDERS: ATTEND Obstetrics & Gynecology
DX: N60.01 Solitary cyst of right breast (principal)

== ENCOUNTER → 2017-05-10 | Outpatient (CLI) | payer BC ==
[~2017-05-10] MED LIST changes: -CRD200 PO; -CTP/1 PO; +DENOINJ SC; +FMR25 PO; +RIVA1TAB4 PO; +TRIA37.5 PO; -TRIATAB3 PO; -XRL20 PO
--- NOTE | 2017-05-10 13:11 | DIAGNOSTIC IMAGING REPORT ---
PET/CT SKULL-THIGH CLINICAL HISTORY: 77 years-old Female presenting with BREAST CANCER in 2001, left supraclavicular mass/lymph node found to be metastatic breast cancer July 2016, history of cervical adenopathy metastatic osseous disease, history of left peritonsillar mass, history of smoking. TECHNIQUE: PET/CT was performed from the base of the skull through the proximal thighs following the intravenous administration of 10.488 mCi of F18-FDG. Blood glucose level 54 mg/dL. The injection was performed at 10:40 AM and imaging began at 11:[address] was performed for attenuation correction purposes and anatomic localization. COMPARISON: PET/CT from 07/18/2016. CT DOSE (mGy.cm): The estimated cumulative dose is 1156.3. FINDINGS: Head and neck: Mild FDG avidity persists in the left peritonsillar region (max SUV 4.5, previously max SUV 4.8). At the site of prior conglomerate lymphadenopathy in the left supraclavicular fossa, ill-defined minimally FDG avid soft tissue remains (max SUV 3.7, previously max SUV 6.3). No new FDG avid cervical lymphadenopathy. Chest: Right subclavian Mediport now in place. Postsurgical changes of left mastectomy as on prior exam. The previously noted FDG avid left axillary anna conglomerate now demonstrates only mild FDG avidity (max SUV 2.2, previously max SUV 7.8). Mildly FDG avid right hilar lymph node (max SUV 2.8), nonspecific. Previously noted FDG avid mediastinal lymphadenopathy is no longer present. FDG avidity associated with ribbonlike hyperdensity (max SUV 6.6) within the photopenic moderate right pleural effusion possibly indicating calcification and/or talc from prior pleurodesis. Small to moderate photopenic left pleural effusion. Pleural fluid has slightly increased from prior exam. Interval resolution of pericardial effusion. Atherosclerosis of aortic arch. Multichamber enlargement of the heart. FDG avidity within the right atrial and right ventricular free wall suggests pulmonary hypertension. Mitral annular, aortic valve, and coronary artery calcification. Multifocal groundglass and bandlike opacities in the lungs. Mosaic attenuation suggest small airways disease. No focal FDG avid pulmonary infiltrate or nodule. Abdomen and pelvis: Previously noted FDG avid upper abdominal lymphadenopathy have resolved. No enlarged or FDG avid lymph nodes in the abdomen or pelvis. Physiologic distribution of radiotracer evident in the gastrointestinal and genitourinary tracts. Relative atrophy of the right kidney possibly secondary to greater atherosclerotic plaque burden at the origin of the right renal artery. Atherosclerosis of the normal caliber abdominal aorta. No FDG avid lesion in the adrenal glands on the current exam. Musculoskeletal: Previously noted multifocal FDG avid destructive osseous lesions are now photopenic, although mixed sclerotic and lytic changes persist, which can be seen in the setting of posttreatment change. For example, the previously noted FDG avid lesion in the right ilium subjacent to the sacroiliac joint demonstrates a max SUV of 2.4. IMPRESSION: 1. Significant decrease in FDG avidity of the diffuse osseous metastatic disease. 2. Significant interval decrease in FDG avidity of the conglomerate left supraclavicular anna mass as well as left axillary anna conglomerate. 3. Slight increase in size of bilateral pleural effusions. FDG avidity and hyperdensity in the right pleural effusion could suggest interval pleurodesis. 4. Interval resolution of pericardial effusion. 5. Interval decrease in FDG avidity and size of mediastinal and upper abdominal lymphadenopathy. No new sites of metastatic disease. 6. Stable to slight interval decrease in FDG avidity of the poorly defined left peritonsillar mass, which remains concerning for neoplasm. Electronically signed by: Dale Block M.D. 05/10/2017 1:09 PM Dictated Date/Time: 05/10/2017 12:35 PM
--- NOTE | 2017-05-10 17:39 | CARDIOLOGY CONSULTATION ---
DATE OF CONSULTATION: 05/10/2017 ADDENDUM: The initial consultation was done on 05/06/2017. FAMILY HISTORY: Noncontributory given the patient's age and known cardiovascular disease.
== END | disposition home or self-care (01) ==
LOC: C.PET 09:38
PROVIDERS: ATTEND Internal Medicine Hematology
DX: C50.912 Malignant neoplasm of unspecified site of left female breast (principal); J90 Pleural effusion, not elsewhere classified; R59.0 Localized enlarged lymph nodes; J35.9 Chronic disease of tonsils and adenoids, unspecified

== ENCOUNTER → 2017-05-15 | Outpatient (CLI) | payer BC ==
[2017-05-15 18:40] LABS: URINE APPEARANCE CLEAR (CLEAR); URINE BILIRUBIN NEG (NEG); URINE COLOR YELLOW; URINE EPITHELIAL CELL AUTO 0-5 /lpf (0-5); URINE NITRITE NEG (NEG); URINE SPECIFIC GRAVITY 1.012 (1.000-1.030); UROBILINOGEN NEG (NEG)
[2017-05-15 18:44] LABS: MANUAL MICROSCOPIC REQUIRED? NO; REVIEW REQ? NO
== END | disposition home or self-care (01) ==
LOC: C.LABSPEC 17:07
PROVIDERS: ATTEND Nurse Practitioner Adult Health
DX: R31.9 Hematuria, unspecified (principal); R39.89 Other symptoms and signs involving the genitourinary system

== ENCOUNTER → 2017-07-11 | Outpatient (CLI) | payer BC ==
[~2017-07-11] MED LIST changes: -FOLI1TAB7 PO; +FOLI1TAB8 PO
--- NOTE | 2017-07-11 14:07 | DIAGNOSTIC IMAGING REPORT ---
TWO VIEW CHEST CLINICAL HISTORY: Pleural effusion. FINDINGS: PA and lateral chest radiograph is are compared to study dated 05/05/2017 and correlated with chest CT dated 11/16/2016. The PA view is degraded by patient rotation. A right subclavian central venous infusion port is unchanged in position. The heart is enlarged and there is atherosclerotic calcification of the thoracic aorta. The pulmonary vasculature is noncongested. Chronic interstitial thickening is similar to previous. Foci of linear scarring are again seen in both lungs. Layering pleural effusions with bibasilar consolidation have modestly increased in size from 05/05/2017. Fluid is present along the minor fissure. There is no pneumothorax. The skeletal structures are osteopenic. Degenerative change is present throughout the thoracic spine. Surgical clips are present in the left axilla. IMPRESSION: 1. Cardiomegaly without radiographic evidence of congestive failure. 2. Layering pleural effusions with bibasilar consolidation and fluid along the minor fissure. The have increased in size from 05/05/2017. Electronically signed by: Luigi Leon M.D. 07/11/2017 2:05 PM Dictated Date/Time: 07/11/2017 2:03 PM
== END | disposition home or self-care (01) ==
LOC: C.RAD1850 13:47
PROVIDERS: ATTEND Physician Assistant
DX: J90 Pleural effusion, not elsewhere classified (principal)

== ENCOUNTER 2017-09-11 15:32 | Emergency (ER) | payer BC ==
[~2017-09-11] VITALS: Ht 162.6 cm; Wt 86.5 kg
[~2017-09-11 15:32] MED LIST changes: -CALC-388 PO; -CHOL100010 PO; +ONDA-170 PO; -ONDA8TAB6 PO; -PRD/1 PO; +RANI150T85 PO; -ZNTT/150 PO
[2017-09-11 15:40] VITALS: TEMP 36.6; Ht 162.6 cm; Wt 86.5 kg
[2017-09-11] MEDS ORDERED: HydrALAZINE HCL 20 MG/ML VIAL IV STA ×2 (15:59→17:44)
[2017-09-11] MEDS ORDERED: PRD/1 PO (16:01)
--- NOTE | 2017-09-11 16:20 | EMERGENCY ROOM VISIT NOTE ---
History Report prepared by Jewel: Thom Hernandez Under the Supervision of: Dr. Luigi Cazares M.D. First contact with patient: 15:54 Chief Complaint: HYPERTENSION Stated Complaint: HIGH BLOOD PRESSURE History of Present Illness The patient is a 77 year old female who presents to the Emergency Room with complaints of constant diffuse hypertension starting earlier today. She currently rates her discomfort as a 4/10 in severity. The patient notes that she was getting an injection this morning at [facility], and she states that her blood pressure was elevated. The patient states that she used to have low blood pressure, and she was taken off some of her blood pressure medications--she still lakes lisinopril in the morning and night. She states that she is also on Xarelto, and she states that she has not missed any medications today. The patient reports that the left side of her head and neck feel funny right now, though she states that she has been sleeping on the couch recently and sometimes has neck pain. She denies any chest pain or shortness of breath. The patient also notes that she is having a prickly feeling in her left arm, though she has lymphedema in that arm. The patient states that a week ago she was seen at her PCP, and her blood pressure was normal. The patient states that her daughter is coming to town soon, and this is a stressor for her. The patient additionally notes that she has a history of A-fib. Source of History: patient Onset: earlier today Position: other (diffuse) Quality: other (hypertension) Timing: constant Associated Symptoms: No chest pain, No SOB Note: Associated symptoms: the left side of her head and neck feel funny, prickly feeling in her left arm Review of Systems See HPI for pertinent positives & negatives. A total of 10 systems reviewed and were otherwise negative. Past Medical & Surgical Medical Problems: (1) Ankylosing spondylitis (2) Aortic stenosis (3) Atrial fibrillation (4) Bradycardia (5) Breast cancer (6) Difficulty breathing (7) Gastroesophageal reflux disease (8) Hyperparathyroidism (9) Hypertension (10) Metastatic breast cancer (11) Osteopenia (12) Pericardial effusion (13) Vomiting Surgical Problems: (1) H/O mastectomy (2) S/P hysterectomy Family History Patient reports no known family medical history. Social History Smoking Status: Former Smoker Drug Use: none Marital Status: Occupation Status: retired Current/Historical Medications Scheduled Calcium Carbonate-Vitamin D (Calcium + D3 600-200 mg-Unit), 1 TAB PO BID Cholecalciferol (Vitamin D), 2,000 UNIT PO QAM Denosumab (Xgeva), 1.7 ML SC MONTHLY Folic Acid (Folvite), 1 MG PO UD Letrozole (Femara), 2.5 MG PO DAILY Lisinopril (Zestril), 40 MG PO BID Methotrexate (Methotrexate), 7.5 MG PO Monday Prednisone (Prednisone), 4 MG PO QAM Ranitidine (Zantac), 150 MG PO QAM Rivaroxaban (Xarelto), 20 MG PO DAILY Triamterene/Hctz (Dyazide 37.5MG/25MG), 1 TAB PO DAILY Scheduled PRN Clonidine Hcl (Catapres), 0.1 MG PO BID PRN for Hypertension Docusate Sodium (Colace), 1 CAP PO BID PRN for Constipation Menthol-Zinc Oxide (Calmoseptine), 1 APPLN TOP TID PRN for Ondansetron Hcl (Zofran), 8 MG PO Q8 PRN for Nausea Prochlorperazine Maleate (Compazine), 1 TAB PO Q6 PRN for Nausea or Vomiting Tramadol (Ultram), 50-100 MG PO HS PRN for Pain Allergies Coded Allergies: Amiodarone (Verified Allergy, Intermediate, Low BP, 09/11/17) Metoprolol (Verified Allergy, Intermediate, Low BP, 09/11/17) Diphenhydramine (Verified Adverse Reaction, Mild, hyperactive, 09/11/17) POOR TOLERANCE OF BENADRYL; becomes hyper Physical Exam Vital Signs Date Time Temp Pulse Resp B/P (MAP) Pulse Ox O2 Delivery O2 Flow Rate FiO2 09/11/17 19:30 61 20 168/92 98 09/11/17 19:01 168/92 09/11/17 17:36 61 09/11/17 17:31 60 20 212/86 98 Room Air 09/11/17 15:40 36.6 69 20 198/104 95 Room Air Physical Exam GENERAL: Patient is in no acute distress. HEENT: No acute trauma, normocephalic atraumatic, mucous membranes moist, no nasal congestion, no scleral icterus. NECK: No stridor, no adenopathy, no meningismus, trachea is midline. LUNGS: Clear to auscultation bilaterally, no wheeze, no rhonchi, breath sounds equal. HEART: 2/6 systolic murmur and an irregular rhythm. Normal rate. ABDOMEN: Soft, nontender, bowel sounds positive, no hernias, no peritonitis. EXTREMITIES: No pedal edema. Left arm edema consistent with her past history. No evidence for acute trauma to the upper or lower extremity. Full range of motion of all joints. NEUROLOGIC: Oriented x 3, no acute motor or sensory deficits, no focal weakness. SKIN: No rash, no jaundice, no diaphoresis. Medical Decision & Procedures ER Provider Diagnostic Interpretation: Radiology results as stated below per my review and radiologist interpretation: HEAD CT NONCONTRAST CT DOSE: 638.56 mGycm HISTORY: headache, on xarelto, jamie blood pressure TECHNIQUE: Multiaxial CT images of the head were performed without the use of intravenous contrast. Automated exposure control was utilized for this study. A dose lowering technique was utilized adhering to the principles of ALARA. Comparison: Head CT 08/20/2016. Findings: The paranasal sinuses and mastoid air cells are clear. Metastatic lesions within the calvarium demonstrate interval bony growth suggestive of treatment response. These are similar in size compared the prior study. No new calvarial lesions identified. Mild atrophy and microvascular ischemic changes are again noted. There is no intracranial mass, hematoma, midline shift, acute infarct. Impression: 1. No acute intracranial abnormality. 2. Metastatic calvarial lesions remain stable in size but demonstrate interval bony growth suggestive of treatment response. Electronically signed by: Reynold Winn M.D. 09/11/2017 5:18 PM Dictated Date/Time: 09/11/2017 5:11 PM Laboratory Results Test 09/11/17 16:30 Troponin I < 0.015 ng/ml (0-0.045) Thyroid Stimulating Hormone (TSH) 0.832 uIu/ml (0.300-4.500) Lab results from earlier today: BUN 28, Creatinine 1.1, Sodium 143, Potassium 3.6, Chloride 101, Glucose 96, AST 19, Alkaline Phosphate 41, Bilirubin 0.4, Calcium 9.3, ALT 6, WBC 6.14, HGB 12.8, Platelet Count 227 Laboratory results reviewed by me. Medications Administered Medications (Trade) Dose Ordered Sig/Mau Route Start Time Stop Time Status Last Admin Dose Admin Hydralazine HCl (HydrALAZINE INJ) 5 mg NOW STAT IV 09/11/17 15:59 09/11/17 16:06 DC 09/11/17 16:56 5 MG Hydralazine HCl (HydrALAZINE INJ) 10 mg NOW STAT IV 09/11/17 17:44 09/11/17 17:46 DC 09/11/17 17:56 10 MG Clonidine HCl (Catapres Tab) 0.2 mg NOW ONCE PO 09/11/17 19:15 09/11/17 19:16 DC 09/11/17 19:29 0.2 MG Heparin Sodium (Porcine) (Heparin 100 Unit/ml 5ml Flush) 5 ml STK-MED ONCE .ROUTE 09/11/17 19:21 09/11/17 19:22 DC 09/11/17 19:29 5 ML ECG Per My Interpretation Indication: other (hypertension) Rate (beats per minute): 59 Rhythm: atrial fibrillation Findings: other (No ST elevation. No PVC.) ED Course 1554: The patient was evaluated in room A12. A complete history and physical exam was performed. 1559: Hydralazine 5mg IV 1636: I discussed the patients case with Dr. Silverman - Internal Medicine, and he said that is she needs something then put her on a small dose of labetalol when discharged home. 1744: Hydralazine 10mg IV 1840: I reevaluated the patent, and she was doing well. She is waiting for the rest of her results. 1900: Reevaluated the patient, and her blood pressure was better. Discussed results and discharge instructions: She verbalized understanding and agreement. The patient is ready for discharge. 5: Clonidine 0.2mg PO, Medical Decision Differential diagnoses include: essential hypertension, renal failure, electrolyte imbalance, cardiac ischemia, intracranial bleeding, stress or anxiety, and thyroid disorder. The patient presents with a higher blood pressure. She states that she is under some stress because her daughter is coming to town. She has some mild headache on the left with some neck pain which she thinks may be from how she slept. She was sent here because her pressure was persistently high at the outpatient office. I reviewed the laboratory work done for her earlier, there was no kidney failure , no significant electrolyte abnormality. No leukocytosis or concerning anemia. EKG at our ER shows A. fib, she carries a history of this, no acute ischemia. Cardiac enzyme testing 1 is not consistent with acute cardiac injury. Thyroid testing shows the patient to be in a euthyroid state. Brain CT shows no acute bleed or mass-effect. The patient received IV hydralazine, this did help control her blood pressure. I did review the patient's previous records, she had been on clonidine but this was stopped as her pressure at one-point was too low. I do think restarting this medication as needed would be appropriate for now. She was given some tablets to take home and a small prescription was written. She will follow with her doctors office and keep a watch on her blood pressure. She can use the clonidine as needed for high pressure readings. The cause for the higher pressure is unclear, it may be stress related, it may be that she is just in need of some blood pressure medication adjustments. She will see her doctor in the outpatient office and return here for worsening symptoms. Of note, I did contact the doctor's office. They had suggested labetalol possibly to be started, however, the patient is already slightly bradycardic and I did not think labetalol would be the best choice, clonidine seemed more appropriate. Medication Reconcilliation Current Medication List: was personally reviewed by me Blood Pressure Screening Patient's blood pressure: Elevated blood pressure Blood pressure disposition: Referred to PCP Consults Time Called: 1620 Consulting Physician: Dr. Silverman - Internal Medicine Returned Call: 1636 I discussed the patients case with Dr. Silverman - Internal Medicine, and he said that is she needs something then put her on a small dose of labetalol when discharged home. Impression Primary Impression: Hypertension Scribe Attestation The scribe's documentation has been prepared under my direction and personally reviewed by me in its entirety. I confirm that the note above accurately reflects all work, treatment, procedures, and medical decision making performed by me. Departure Information Dispostion Home / Self-Care Prescriptions Clonidine Hcl (CATAPRES) 0.1 Mg Tab 0.1 MG PO BID Y for Hypertension, #12 TAB 2 Refills Prov: Luigi Cazares M.D. 09/11/17 Referrals Pro,Ernesto Arguelles M.D. (PCP) Forms HOME CARE DOCUMENTATION FORM, IMPORTANT VISIT INFORMATION Patient Instructions My [facility] Additional Instructions keep your regular meds the same use clonidine 1 tab as needed for persistently jamie blood pressure readings of over 170 systolic--you may even take a second tab after an hour if it is still high see your doctor's office in 1-2 days to see how the blood pressure is doing keep a watch on your blood pressure at home return if worsening brain CT and lab work was ok today
[2017-09-11] MEDS ORDERED: MENTOIN TOP (16:33)
[2017-09-11] MEDS ORDERED: RIVA1TAB4 PO (16:33)
--- NOTE | 2017-09-11 17:20 | DIAGNOSTIC IMAGING REPORT ---
HEAD CT NONCONTRAST CT DOSE: 638.56 mGycm HISTORY: headache, on xarelto, jamie blood pressure TECHNIQUE: Multiaxial CT images of the head were performed without the use of intravenous contrast. Automated exposure control was utilized for this study. A dose lowering technique was utilized adhering to the principles of ALARA. Comparison: Head CT 08/20/2016. Findings: The paranasal sinuses and mastoid air cells are clear. Metastatic lesions within the calvarium demonstrate interval bony growth suggestive of treatment response. These are similar in size compared the prior study. No new calvarial lesions identified. Mild atrophy and microvascular ischemic changes are again noted. There is no intracranial mass, hematoma, midline shift, acute infarct. Impression: 1. No acute intracranial abnormality. 2. Metastatic calvarial lesions remain stable in size but demonstrate interval bony growth suggestive of treatment response. Electronically signed by: Reynold Winn M.D. 09/11/2017 5:18 PM Dictated Date/Time: 09/11/2017 5:11 PM
[2017-09-11] MEDS ORDERED: CALC-388 PO (17:54)
[2017-09-11] MEDS ORDERED: CHOL100010 PO (17:54)
[2017-09-11] MEDS ORDERED: CTP/1 PO (19:09)
[2017-09-11] MEDS ORDERED: CLONIDINE HCL 0.1 MG TAB PO SCH (19:15)
[2017-09-11] MEDS ORDERED: CLONIDINE HCL 0.1 MG TAB PO ONE (19:15)
[2017-09-11 19:30] VITALS: BP 168/92; PULSE 61; O2SAT 98
== END 2017-09-11 19:32 | disposition home or self-care (01) ==
LOC: C.EDB 15:33 → C.EDA 19:32
DX: I10 Essential (primary) hypertension (principal); M45.9 Ankylosing spondylitis of unspecified sites in spine; I35.0 Nonrheumatic aortic (valve) stenosis; I48.91 Unspecified atrial fibrillation; Z85.3 Personal history of malignant neoplasm of breast; K21.9 Gastro-esophageal reflux disease without esophagitis; E21.3 Hyperparathyroidism, unspecified; M85.80 Other specified disorders of bone density and structure, unspecified site; Z87.891 Personal history of nicotine dependence; Z79.01 Long term (current) use of anticoagulants; Z79.52 Long term (current) use of systemic steroids; Z79.899 Other long term (current) drug therapy; Z88.8 Allergy status to other drugs, medicaments and biological substances

== ENCOUNTER → 2017-09-13 | Outpatient (CLI) | payer BC ==
[~2017-09-13] MED LIST changes: +CALC-388 PO; +CHOL100010 PO; +CTP/1 PO; +MENTOIN TOP; +PRD/1 PO
--- NOTE | 2017-09-13 12:35 | DIAGNOSTIC IMAGING REPORT ---
PET/CT SKULL-THIGH CLINICAL HISTORY: 77 years-old Female with BREAST CANCER. Follow-up study in a patient with history of breast cancer with diffuse bony metastasis. Subsequent treatment strategy. Remote history of prior radiation therapy. Patient completed chemotherapy in January 2017. History of tuberculosis as a child. History of tobacco abuse. COMPARISON: PET CT 05/10/2017 and 07/18/2016. TECHNIQUE: The patient was injected with 13.8 mCi of F-18 fluorodeoxyglucose (FDG) and an emission scan was performed from the skull vertex to the toes. Noncontrast CT was performed for attenuation correction and anatomic localization. The blood glucose level was 67 mg/dl. FINDINGS: HEAD AND NECK: Asymmetric soft tissue thickening in the region of the left peritonsillar distribution is again seen measuring 1.8 x 1.5 cm on image 22 of series 2, previously measuring proximally 1.8 x 1.4 cm and again demonstrates increased metabolic activity, SUV max of 6.4, previously 4.5 on study dated 05/10/2017. Activity about the glottis and cricoid cartilage is likely physiologic related to recent speech without focal abnormality on the CT images. Mildly increased radiotracer activity is seen within the thyroid goiter. Ill-defined soft tissue prominence is seen within the distribution of the left supraclavicular region correlating with previously described hypermetabolic conglomerate adenopathy. No significant hypermetabolic activity identified within this region, image 36 series 2. CHEST: Ill-defined soft tissue prominence with adjacent surgical clips and spiculated margins is again noted within the left axillary and subpectoral distribution measuring up to 3.4 x 2.1 cm on image 52 series 2, previously measuring 4.0 x 2.0 cm on study dated 05/10/2017. SUV max within this conglomerate lesion measures 2.0, previously 2.2. There is mildly increased radiotracer uptake associated with a subcarinal 9 x 9 mm lymph node seen on image 74 series 2, SUV max of 3.4, previously measuring 12 x 9 mm on study dated 05/10/2017, SUV max of 3.3. Hypermetabolic focus of the right hilum on image 76 series 2 demonstrates SUV max of 5.9, previously 3.6 within this area without discretely enlarged lymph nodes identified on the CT images. This area of increased radiotracer uptake may correlate with adjacent pulmonary vascularity. No additional hypermetabolic mediastinal adenopathy or hypermetabolic pulmonary lesions identified. Increased attenuation at the right lung base with hypermetabolic activity suggests sequela of prior pleurodesis, unchanged with SUV max of 7.8. ABDOMEN AND PELVIS: There is a physiologic distribution of activity within the liver, spleen, adrenal glands, gastrointestinal and urinary tracts, with no hypermetabolic foci. There is no significant hypermetabolic activity associated with the previously described upper abdominal lymph nodes. These lymph nodes have also decreased in size with no pathologically enlarged lymph nodes of the upper abdomen identified. MUSCULOSKELETAL SYSTEM AND EXTREMITIES: There is decreased metabolic activity associated with the previously described diffuse osseous metastatic foci. No new hypermetabolic bone lesions identified. Linear area of increased radiotracer activity about the subcutaneous right lateral chest wall, image 115 series 2 with increased attenuation suggests a calcified vascular structure without evidence of metastasis. ADDITIONAL CT FINDINGS: Bilateral pleural effusions are again noted, slightly decreased in size on the right from comparison. High attenuating material at the right lung base suggest prior pleurodesis. Linear subsegmental consolidative opacities seen within the right perihilar distribution and right middle lobe suggesting areas of atelectasis/scarring. Scattered groundglass opacities are again noted throughout the left lung suggesting areas of atelectasis with superimposed pneumonitis also in the differential. No suspicious mass lesions identified to suggest metastasis within the lungs. Cardiomegaly with coronary arterial disease. No large pericardial effusion identified. Atrophy of the right kidney. Moderate atherosclerosis and tortuosity of the abdominal aorta. No bowel obstruction. Prior hysterectomy. Normal appendix. Diffuse osseous metastatic disease consisting of mixed sclerotic and lytic lesions redemonstrated throughout the spine, clavicles, right shoulder, sternum, sacrum and iliac bones. IMPRESSION: 1. Focal area of mildly increased radiotracer activity about the right hilum without corresponding pathologically enlarged lymph node seen on the CT images may correlate with adjacent pulmonary vascularity or nonenlarged lymph node. Attention at follow-up recommended. 2. No significant hypermetabolic activity identified involving the left supraclavicular and left axillary conglomerate adenopathy which has decreased in size from comparison compatible with positive response to therapy. 3. Bilateral pleural effusions, slightly decreased in size on the right with evidence of prior right-sided pleurodesis. 4. Decreased metabolic activity associated with the diffuse skeletal metastasis. 5. Focal lesion of the left peritonsillar region is stable in size however demonstrates mildly increased FDG activity from comparison. Correlation with direct visualization recommended. The above report was generated using voice recognition software. It may contain grammatical, syntax or spelling errors. Electronically signed by: Mauro Del Valle M.D. 09/13/2017 12:33 PM Dictated Date/Time: 09/13/2017 11:08 AM
== END | disposition home or self-care (01) ==
LOC: C.PET 08:36
PROVIDERS: ATTEND Internal Medicine Hematology
DX: C50.912 Malignant neoplasm of unspecified site of left female breast (principal); C79.51 Secondary malignant neoplasm of bone; C80.1 Malignant (primary) neoplasm, unspecified; I31.8 Other specified diseases of pericardium

== ENCOUNTER → 2017-09-14 | Outpatient (CLI) | payer BC ==
--- NOTE | 2017-09-14 10:58 | DIAGNOSTIC IMAGING REPORT ---
CHEST 2 VIEWS ROUTINE CLINICAL HISTORY: J90 Bilateral pleural [id number] pleural effusion COMPARISON STUDY: 07/11/2017 FINDINGS: Small bilateral pleural effusions and basilar atelectasis unchanged. Thickening right minor fissure unchanged. Upper lungs are considered clear. Stable postoperative changes left axilla. IMPRESSION: Small bibasilar pleural effusions and basilar atelectatic change unchanged from the prior study. No new or interval process. The above report was generated using voice recognition software. It may contain grammatical, syntax or spelling errors. Electronically signed by: Rios Love M.D. 09/14/2017 10:56 AM Dictated Date/Time: 09/14/2017 10:55 AM
== END | disposition home or self-care (01) ==
LOC: C.RAD1850 10:33
PROVIDERS: ATTEND Surgery
DX: J90 Pleural effusion, not elsewhere classified (principal)

== ENCOUNTER → 2018-02-09 | Outpatient (CLI) | payer BC ==
[~2018-02-09] MED LIST changes: +CLIN1CAP51 PO; +PROC10TA PO; -PROC1TAB5 PO
== END | disposition home or self-care (01) ==
LOC: C.LABSPEC 16:48
PROVIDERS: ATTEND Plastic Surgery
DX: S81.802A Unspecified open wound, left lower leg, initial encounter (principal); X58.XXXA Exposure to other specified factors, initial encounter

== ENCOUNTER 2018-09-23 14:38 | Inpatient (IN) ==
[2018-09-23] MEDS ORDERED: SODIUM CHLORIDE 0.9% 500 ML IV ONE ×2 (15:50→17:11)
[2018-09-23 16:30] LABS: Basophils # (auto) 0.02 K/uL (0-0.2); Basophils % (auto) 0.3 %; Eosinophils # (auto) 0.02 K/uL (0-0.5); Eosinophils % (auto) 0.3 %; Hematocrit (blood only) 40.1 % (37-47); Immature Granulocytes # (auto) 0.02 K/uL (0.00-0.02); Immature Granulocytes % (auto) 0.3 %; Lymphocytes # (auto) 0.51 K/uL (1.2-3.4); Lymphocytes % (auto) 8.5 %; Mean Corpuscular Hgb Conc 32.4 g/dL (32-36); Mean Corpuscular Volume 98.3 fL (80-100); Mean Platelet Volume 10.9 fL (7.4-10.4); Monocytes # (auto) 0.25 K/uL (0.11-0.59); Monocytes % (auto) 4.2 %; Neutrophils % (auto) 86.4 %; Platelet Count 173 K/uL (130-400); RDW Coefficient of Variation 14.1 % (11.5-14.5); RDW Standard Deviation 50.8 fL (36.4-46.3); Red Blood Count 4.08 M/uL (4.2-5.4); White Blood Count 6.02 K/uL (4.8-10.8)
[2018-09-23 16:40] LABS: INR 1.1 (0.9-1.1); Prothrombin Time 11.3 Seconds (9.0-12.0)
--- NOTE | 2018-09-23 16:42 | XRay Report ---
XR chest 1V portable HISTORY: Cough. Short of breath. COMPARISON: Chest 03/23/2018. FINDINGS: No pneumothorax. Small bilateral pleural effusions and bibasilar densities have slightly im proved. The heart remains mildly enlarged. There are surgical clips within the left axilla. Right jug ular Port-A-Cath terminates at the SVC. No evidence for pulmonary edema. 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 IMPRESSION: Slight improvement in the small bilateral pleural effusions and bibasilar densities. No new focal foina g consolidations. Electronically signed by: Reynold Winn M.D. 09/23/2018 4:40 PM
[2018-09-23 16:48] LABS: Albumin Level 3.5 gm/dl (3.4-5.0); BUN Creatinine Ratio 20.4 (10-20); Calcium 8.5 mg/dl (8.5-10.1); Creatinine Clr Calc Pharmacy 42.7 ml/min; Est GFR (Non-African American) 45.7; Magnesium 1.9 mg/dl (1.8-2.4); Potassium 4.1 mmol/L (3.5-5.1)
[2018-09-23 16:53] LABS: Albumin Globulin Ratio 0.9 (0.9-2); Bilirubin,Total 0.5 mg/dl (0.2-1); Total Protein 7.5 gm/dl (6.4-8.2); Troponin I 0.037 ng/ml (0-0.045)
[2018-09-23] MEDS ORDERED: ALBUT/IPRATROP 3MG/0.5MG NEB 3 ML VIAL NEB STA (17:06)
[2018-09-23] MEDS ORDERED: OPTIRAY 320 125ml IV PRN (17:44)
--- NOTE | 2018-09-23 18:12 | CT Scan Report ---
CHEST CTA for PULMONARY ARTERIES CT DOSE: 430.97 mGy.cm HISTORY: Shortness of breath. TECHNIQUE: Multiaxial CT images of the chest were performed following the intravenous administration of contrast to evaluate the pulmonary arteries. Maximal intensity projection images were also obtaine d. A dose lowering technique was utilized adhering to the principles of ALARA. COMPARISON STUDY: Chest 09/23/2018. Chest CT 11/16/2016. PET CT 07/11/2018. 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 This has progressed in the interval. No pneumothorax. Small bilateral pleural ef fusions have slightly improved. Patchy left basilar densities are nonspecific but favor atelectasis. Patchy consolidative and nodular groundglass densities within the base of the right lower lobe and ri ght middle lobe are new from the prior studies. Dominant right middle lobe nodule measures 8 mm and i s best seen on image 96. Progressive focal hyperdensity within the right posterior pleural space. No change in the consolidation/atelectasis is seen within the anteromedial aspect of the right upper lob e and right middle lobe. Diffuse bronchial wall thickening within the right lung and within the chandra tem bronchi. There is also mild bronchial wall thickening within the left central airways. Surgical c lips within the left axilla. Prior left mastectomy. Normal esophagus. No change in the left supraclav icular soft tissue thickening. No significant mediastinal or hilar lymphadenopathy. Progressive thick ening within the bilateral mainstem bronchi. The heart remains enlarged. Normal caliber thoracic aort a with no evidence for dissection. Suboptimal evaluation of the bilateral lower lobe subsegmental pul monary arteries due to motion artifact. Otherwise, no filling defects within the remaining pulmonary arteries to suggest pulmonary embolus. IMPRESSION: 1. No evidence for pulmonary embolus with limitations as described above. 2. Small bilateral pleural effusions have slightly improved. 3. 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 4. Bilateral bronchial wall thickening, right greater than left has progressed. This could be due to metastatic disease. 5. There are new patchy consolidative and groundglass nodular densities within the right middle and r ight lower lobes. This may represent a pneumonia or metastatic disease. 6. Progressive hyperdensity within the right pleural space posteriorly. This could represent prior pl eurodesis or enhancing metastatic disease. 7. No change in the left supraclavicular soft tissue thickening consistent with metastatic disease. Electronically signed by: Reynold Winn M.D. 09/23/2018 6:10 PM
--- NOTE | 2018-09-23 18:16 | Emergency Department Note ---
Entered by Juarez Lama acting as a scribe for History of Present Illness General Chief complaint: Hypertension Stated complaint: HEAVINESS IN CHEST, SOB,WHEEZING,COUGH,BP 220/110 Time Seen by Provider: 09/23/18 15:18 Source: patient History of Present Illness Onset (ago): day(s) 3 Location: chest Pain Consistency: + other (persistent) Maximum Pain Intensity: 3 Quality: + other (productive cough) Associated symptoms: + other (Positive for nausea, vomiting, lower back pain, chest pressure, abdominal discomfort, an increased frequency of urination, and SOB. Negative for diarrhea.) The patient is a 78 year old female who presents to the emergency department with complaints of a persistent cough beginning three days ago. The patient states that she developed a productive cough three days ago. She notes that her cough was worse yesterday, and she reports that it is not as bad today. The patient states that she saw some blood when she coughed yesterday. She also complains of nausea, vomiting, lower back pain, chest pressure, abdominal discomfort, an increased frequency of urination, and SOB. She denies any diarrhea. She notes that she is not positive, but she reports that she may have been around some sick students. The patient states that she has a history of Afib for which she takes a blood thinner. She notes that she takes 0.1mg Clonidine. She reports that she also has a history of bronchitis and a pericardial effusion, but she states that she does not have a history of asthma. Patient does live alone. Home Medications Home Medications Medication Instructions Recorded Confirmed Type folic acid 1 mg tablet 1 mg PO [id number] 04/19/18 09/23/18 History letrozole 2.5 mg tablet 2.5 mg PO QPM 04/19/18 09/23/18 History methotrexate 2.5 mg/mL oral 7.5 mg PO WK ml 04/19/18 09/23/18 History solution prednisone 1 mg tablet 4 mg PO QAM tab 04/19/18 09/23/18 History prochlorperazine maleate 10 mg 10 mg PO Q6H PRN tab 04/19/18 09/23/18 History tablet ranitidine 150 mg capsule 150 mg PO QAM 04/19/18 09/23/18 History tramadol 50 mg tablet 50 - 100 mg PO HS PRN tab 04/19/18 09/23/18 History calcium carbonate-vitamin D3 1 cap PO BID 09/23/18 09/23/18 History [Calcium 600 + D(3)] cholecalciferol (vitamin D3) 2,000 units PO QAM 09/23/18 09/23/18 History [Vitamin D3] clonidine HCl 0.1 mg PO DAILY PRN 09/23/18 09/23/18 History denosumab [Xgeva] 120 mg SUBCUT MONTHLY 09/23/18 09/23/18 History lisinopril 40 mg PO QAM 09/23/18 09/23/18 History rivaroxaban [Xarelto] 20 mg PO QPM 09/23/18 09/23/18 History triamterene-hydrochlorothiazid 1 tab PO QAM 09/23/18 09/23/18 History Allergies Allergy/AdvReac Type Severity Reaction Status Date / Time amiodarone Allergy Intermediate Low BP Verified 09/23/18 15:58 metoprolol Allergy Intermediate Low BP Verified 09/23/18 15:58 cefuroxime Allergy Mild interacted Verified 09/23/18 15:58 with other medications she was on Cipro AdvReac Mild cramping Verified 03/01/18 09:15 in legs, swelling in arm ciprofloxacin AdvReac Mild cramping Verified 09/23/18 15:58 in legs, swelling in arm diphenhydramine AdvReac Mild hyperactive Verified 09/23/18 15:58 Past Med/Surg History Medical History Pericardial effusion (Resolved) Hypertension (Chronic) Ankylosing spondylitis (Chronic) Hyperparathyroidism (Chronic) Gastroesophageal reflux disease (Chronic) Aortic stenosis (Chronic) Near syncope (Acute) Vomiting Metastatic breast cancer (Chronic) Atrial fibrillation (Chronic) Bradycardia Difficulty breathing Bronchitis Ankylosing hyperostosis (Chronic) Aortic stenosis (Chronic) Atrial fibrillation (Chronic) Bradycardia (Chronic) GERD (gastroesophageal reflux disease) (Chronic) HTN, goal to be determined (Chronic) Hyperparathyroidism (Chronic) 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 and A total of 10 systems reviewed and were otherwise negative Physical Exam Vital Signs Vital Signs - 24 hr 09/25/18 07:48 09/25/18 08:00 09/25/18 08:30 Temperature 36.4 C L Temperature Source Oral Pulse Rate [Right Finger] 68 Respiratory Rate 18 Respiratory Effort / Characteristics Non-Labored Spontaneous Respiratory Depth Normal Respiratory Pattern Regular Blood Pressure [Left Arm] Blood Pressure [Right Arm] 152/78 H Blood Pressure Mean [Left Arm] Blood Pressure Mean [Right Arm] 102 Blood Pressure Position [Right Arm] Sitting Pulse Oximetry 94 Oxygen Delivery Method Room Air Room Air 09/25/18 13:32 09/25/18 16:00 09/25/18 17:00 Temperature Temperature Source Pulse Rate [Right Finger] 66 Respiratory Rate 18 Respiratory Effort / Characteristics Non-Labored Spontaneous Spontaneous SOB on Exertion Respiratory Depth Normal Respiratory Pattern Regular Blood Pressure [Left Arm] 172/68 H Blood Pressure [Right Arm] Blood Pressure Mean [Left Arm] 102 Blood Pressure Mean [Right Arm] Blood Pressure Position [Right Arm] Pulse Oximetry 96 Oxygen Delivery Method Room Air Room Air 09/25/18 20:11 09/25/18 23:42 09/25/18 23:45 Temperature 36.6 C Temperature Source Oral Pulse Rate [Right Finger] 73 82 Respiratory Rate 18 22 Respiratory Effort / Characteristics Non-Labored Spontaneous Non-Labored Spontaneous Respiratory Depth Normal Respiratory Pattern Blood Pressure [Left Arm] Blood Pressure [Right Arm] 158/102 H Blood Pressure Mean [Left Arm] Blood Pressure Mean [Right Arm] 120 Blood Pressure Position [Right Arm] Sitting Pulse Oximetry 93 96 Oxygen Delivery Method Room Air Room Air Room Air 09/26/18 02:20 09/26/18 02:46 Temperature 36.3 C L Temperature Source Oral Pulse Rate [Right Finger] 80 88 Respiratory Rate 18 16 Respiratory Effort / Characteristics Non-Labored Spontaneous Respiratory Depth Respiratory Pattern Blood Pressure [Left Arm] Blood Pressure [Right Arm] 138/80 Blood Pressure Mean [Left Arm] Blood Pressure Mean [Right Arm] 99 Blood Pressure Position [Right Arm] Lying Pulse Oximetry 96 96 Oxygen Delivery Method Room Air Room Air GENERAL: alert, well appearing, well nourished, no distress, non-toxic EYE EXAM: normal conjunctiva, PERRL and EOM's grossly intact OROPHARYNX: no exudate, no erythema, lips, buccal mucosa, and tongue normal and mucous membranes are dry NECK: supple, no nuchal rigidity, no adenopathy, non-tender LUNGS: Normal chest wall mechanics. Diminished breath sounds, bibasilar rales, coarse cough noted during exam. HEART: no murmurs, S1 normal and S2 normal ABDOMEN: abdomen soft, non-tender, normo-active bowel sounds, no masses, no rebound or guarding. BACK: Back is symmetrical on inspection and there is no deformity, no midline tenderness, no CVA tenderness. SKIN: no rashes and no bruising UPPER EXTREMITIES: Left upper extremity edema. Nml pulses b/l. LOWER EXTREMITIES: Trace bilateral lower extremity edema. Nml pulses b/l. NEURO EXAM: Normal sensorium, cranial nerves II-XII grossly intact, normal speech, no gross weakness of arms, no gross weakness of legs. Course 1518: Past medical records reviewed. The patient was evaluated in room C11, and a complete history and physical examination were performed. 1706: I reevaluated and updated the patient. She will get a chest CT. 1820: Patient updated on all results. Patient with conversational hypoxia and dyspnea down to 87%. Patient was in agreement with plan. 1845: Case discussed with hospitalist for admission. Administered Medications Amoxicillin/Clavulanate Potassium (Augmentin 875mg) 1 tab PO BID [facility] Stop: 10/02/18 20:59 Last Admin: 09/25/18 20:03 Dose: 1 tab Documented by: [id number] Azithromycin (Zithromax) 250 mg PO QAM [facility] Stop: 10/01/18 08:59 Last Admin: 09/25/18 08:35 Dose: 250 mg Documented by: [id number] Admin: 09/24/18 08:27 Dose: 250 mg Documented by: [id number] Benzonatate (Tessalon Perle) 100 mg PO Q6H PRN PRN Reason: Cough Stop: 10/25/18 19:14 Last Admin: 09/25/18 19:53 Dose: 100 mg Documented by: [id number] Folic Acid (Folvite) 1 mg PO [id number] [facility] Stop: 10/24/18 08:59 Last Admin: 09/24/18 08:26 Dose: 1 mg Documented by: [id number] Ioversol (Optiray 320 125ml) 85 ml IV ONCE PRN PRN Reason: Interaction Checking Stop: 09/27/18 17:43 Last Admin: 09/23/18 17:44 Dose: 85 ml Documented by: [id number] Ipratropium [place] (Atrovent 0.02% 0.5mg/2.5ml) 0.5 mg INH Q6R [facility] Stop: 10/25/18 11:14 Last Admin: 09/26/18 02:17 Dose: 0.5 mg Documented by: [id number] Admin: 09/25/18 20:09 Dose: 0.5 mg Documented by: [id number] Admin: 09/25/18 13:29 Dose: 0.5 mg Documented by: [id number] Admin: 09/25/18 11:48 Dose: Not Given Documented by: [id number] Letrozole (Femara) 2.5 mg PO QPM [facility] Stop: 10/23/18 21:59 Last Admin: 09/25/18 20:04 Dose: 2.5 mg Documented by: [id number] Cosigned by: [id number] Admin: 09/24/18 21:35 Dose: 2.5 mg Documented by: [id number] Cosigned by: [id number] Admin: 09/23/18 23:56 Dose: 2.5 mg Documented by: [id number] Cosigned by: [id number] Levalbuterol HCl (Xopenex 0.63 Mg/3 Ml Neb) 0.63 mg NEB Q6R [facility] Stop: 10/25/18 13:59 Last Admin: 09/26/18 02:17 Dose: 0.63 mg Documented by: [id number] Admin: 09/25/18 20:09 Dose: 0.63 mg Documented by: [id number] Admin: 09/25/18 13:30 Dose: 0.63 mg Documented by: [id number] Lisinopril (Zestril) 40 mg PO QAM [facility]NE[facility] Stop: 10/24/18 08:59 Last Admin: 09/25/18 08:36 Dose: 40 mg Documented by: [id number] Admin: 09/24/18 08:26 Dose: 40 mg Documented by: [id number] Menthol (Nice) 1 alex BUCCAL PRN PRN PRN Reason: Sore Throat Stop: 10/24/18 21:40 Last Admin: 09/24/18 23:19 Dose: 1 alex Documented by: [id number] Multivitamins/Minerals (Caltrate Plus) 1 tab PO BID [facility] Stop: 10/23/18 21:59 Last Admin: 09/25/18 20:02 Dose: 1 tab Documented by: [id number] Admin: 09/25/18 08:36 Dose: 1 tab Documented by: [id number] Admin: 09/24/18 21:35 Dose: 1 tab Documented by: [id number] Admin: 09/24/18 08:29 Dose: 1 tab Documented by: [id number] Admin: 09/23/18 23:55 Dose: Not Given Documented by: [id number] Polyethylene Glycol (Miralax Powder Packet) 17 gm PO DAILY PRN PRN Reason: Constipation Stop: 10/23/18 21:18 Last Admin: 09/26/18 02:32 Dose: 17 gm Documented by: [id number] Prednisone (Prednisone) 20 mg PO BID [facility] Stop: 10/25/18 20:59 Last Admin: 09/25/18 20:02 Dose: 20 mg Documented by: [id number] Prochlorperazine (Compazine) 10 mg PO Q6H PRN PRN Reason: Nausea Stop: 10/23/18 21:18 Last Admin: 09/23/18 22:41 Dose: 10 mg Documented by: [id number] Ranitidine HCl (Zantac) 150 mg PO QAM [facility] Stop: 10/24/18 08:59 Last Admin: 09/25/18 08:36 Dose: 150 mg Documented by: [id number] Admin: 09/24/18 08:27 Dose: 150 mg Documented by: [id number] Rivaroxaban (Xarelto) 20 mg PO QPM [facility] Stop: 10/23/18 22:59 Last Admin: 09/25/18 20:01 Dose: 20 mg Documented by: [id number] Admin: 09/24/18 21:35 Dose: 20 mg Documented by: [id number] Admin: 09/23/18 23:56 Dose: 20 mg Documented by: [id number] Tramadol HCl (Ultram) 50 mg PO HS PRN PRN Reason: pain Stop: 10/23/18 21:18 Last Admin: 09/25/18 23:58 Dose: 50 mg Documented by: [id number] Admin: 09/25/18 00:42 Dose: 50 mg Documented by: [id number] Admin: 09/23/18 21:52 Dose: 50 mg Documented by: [id number] Triamterene/HCTZ (Maxzide 37.5/25mg) 1 tab PO QAM [facility] Stop: 10/24/18 08:59 Last Admin: 09/25/18 08:36 Dose: 1 tab Documented by: [id number] Admin: 09/24/18 08:27 Dose: 1 tab Documented by: [id number] Vitamin D (Vitamin D3) 2,000 units PO QAM [facility] Stop: 10/24/18 08:59 Last Admin: 09/25/18 08:36 Dose: 2,000 units Documented by: [id number] Admin: 09/24/18 08:27 Dose: 2,000 units Documented by: [id number] Discontinued Medications Albuterol (Duoneb) 3 ml NEB NOW STA Stop: 09/23/18 17:07 Last Admin: 09/23/18 17:14 Dose: 3 ml Documented by: [id number] Albuterol (Duoneb) 3 ml NEB QIDR [facility]NEST[facility] Stop: 10/24/18 07:59 Last Admin: 09/24/18 16:02 Dose: 3 ml Documented by: [id number] Admin: 09/24/18 11:00 Dose: 3 ml Documented by: [id number] Admin: 09/24/18 07:15 Dose: 3 ml Documented by: [id number] Hydralazine HCl (Hydralazine Hcl) 10 mg IV NOW STA Stop: 09/23/18 18:39 Last Admin: 09/23/18 19:46 Dose: Not Given Documented by: [id number] Hydralazine HCl (Hydralazine Hcl) 5 mg IV NOW ONE Stop: 09/23/18 18:48 Last Admin: 09/23/18 19:00 Dose: 5 mg Documented by: [id number] Sodium Chloride (Nss) 500 mls @ 999 mls/hr IV .Q31M ONE Stop: 09/23/18 16:20 Last Infusion: 09/23/18 17:00 Dose: 0 mls/hr Documented by: [id number] Admin: 09/23/18 16:30 Dose: 999 mls/hr Documented by: [id number] Sodium Chloride (Nss) 500 mls @ 999 mls/hr IV .Q31M ONE Stop: 09/23/18 17:41 Last Infusion: 09/23/18 20:05 Dose: 0 mls/hr Documented by: [id number] Admin: 09/23/18 18:46 Dose: 999 mls/hr Documented by: [id number] Ceftriaxone Sodium (Rocephin) 1,000 mg in 50 mls @ 100 mls/hr IV NOW STA Stop: 09/23/18 18:46 Last Infusion: 09/23/18 19:46 Dose: 0 mls/hr Documented by: [id number] Admin: 09/23/18 18:46 Dose: 100 mls/hr Documented by: [id number] Azithromycin 500 mg/ Dextrose 255 mls @ 127.5 mls/hr IV NOW STA Stop: 09/23/18 20:16 Last Infusion: 09/23/18 21:40 Dose: 0 mls/hr Documented by: [id number] Admin: 09/23/18 19:37 Dose: 127.5 mls/hr Documented by: [id number] Methylprednisolone 125 mg/ (Syringe) 2 mls @ 1.5 mls/min IV TODAY@2130 [facility] Stop: 09/23/18 23:59 Last Admin: 09/23/18 22:58 Dose: 1.5 mls/min Documented by: [id number] Ceftriaxone Sodium 1,000 mg/ (Dextrose) 50 mls @ 100 mls/hr IV Q24H ERNESTO; Protocol Stop: 09/29/18 18:29 Last Infusion: 09/24/18 19:34 Dose: 0 mls/hr Documented by: [id number] Admin: 09/24/18 18:53 Dose: 100 mls/hr Documented by: [id number] Methylprednisolone 60 mg/ (Syringe) 0.96 mls @ 1.5 mls/min IV Q8H [facility] Stop: 10/24/18 05:59 Last Admin: 09/25/18 05:45 Dose: 1.5 mls/min Documented by: [id number] Admin: 09/24/18 21:33 Dose: 1.5 mls/min Documented by: [id number] Admin: 09/24/18 13:34 Dose: 1.5 mls/min Documented by: [id number] Admin: 09/24/18 05:54 Dose: 1.5 mls/min Documented by: [id number] Levalbuterol HCl (Xopenex 0.63 Mg/3 Ml Neb) 0.63 mg NEB QIDR [facility] Stop: 10/24/18 19:59 Last Admin: 09/25/18 07:13 Dose: Not Given Documented by: [id number] Admin: 09/24/18 19:38 Dose: 0.63 mg Documented by: [id number] Prednisone (Prednisone) [facility] Stop: 10/24/18 08:59 Last Admin: 09/25/18 08:45 Dose: 4 mg Documented by: [id number] Admin: 09/24/18 08:28 Dose: 4 mg Documented by: [id number] Medical Decision Making Differential Diagnosis Differential diagnosis: Etiologies such as infections, reactive airway disease, COPD, pneumonia, pleural effusion, pulmonary edema, ARDS, pneumothorax, CHF, cardiac ischemia, cardiac tamponade, dysrhythmia, anemia, pulmonary embolism, musculoskeletal, ga strointestinal process, as well as others were entertained. Medical Records Attestation: I reviewed the patient's medical records. Home Medications Current Medication List: was personally reviewed by me Laboratory Data Attestation: I reviewed the patient's lab results. Result diagrams: 09/24/18 05:35 09/25/18 05:34 Lab Results 09/23/18 09/23/18 09/23/18 Range/Units 16:20 16:20 16:20 WBC 6.02 (4.8-10.8) K/uL RBC 4.08 L (4.2-5.4) M/uL Hgb 13.0 (12.0-16.0) g/dL Hct 40.1 (37-47) % MCV 98.3 (80-100) fL MCH 31.9 (25-34) pg MCHC 32.4 (32-36) g/dL RDW Std Deviation 50.8 H (36.4-46.3) fL RDW Coeff of Bubba 14.1 (11.5-14.5) % Plt Count 173 (130-400) K/uL MPV 10.9 H (7.4-10.4) fL Immature Gran % (Auto) 0.3 % Neut % (Auto) 86.4 % Lymph % (Auto) 8.5 % [place] % (Auto) 4.2 % Eos % (Auto) 0.3 % Baso % (Auto) 0.3 % Immature Gran # (Auto) 0.02 (0.00-0.02) K/uL Neut # (Auto) 5.20 (1.4-6.5) K/uL Lymph # (Auto) 0.51 L (1.2-3.4) K/uL [place] # (Auto) 0.25 (0.11-0.59) K/uL Eos # (Auto) 0.02 (0-0.5) K/uL Baso # (Auto) 0.02 (0-0.2) K/uL PT 11.3 (9.0-12.0) Seconds INR 1.1 (0.9-1.1) Sodium 133 L (136-145) mmol/L Potassium 4.1 (3.5-5.1) mmol/L Chloride 99 (98-107) mmol/L Carbon Dioxide 29 (21-32) mmol/L Anion Gap 5.0 (3-11) BUN 23 H (7-18) mg/dl Creatinine 1.14 (0.6-1.2) mg/dl Est Cr Clr Drug Dosing 42.7 ml/min Est GFR ( Amer) 53.0 Est GFR (Non-Af Amer) 45.7 BUN/Creatinine Ratio 20.4 H (10-20) Glucose 110 H (70-99) mg/dl POC Lactic Acid [place] (0.90-1.70) mmol/L Calcium 8.5 (8.5-10.1) mg/dl Phosphorus (2.5-4.9) mg/dl Magnesium 1.9 (1.8-2.4) mg/dl Total Bilirubin 0.5 (0.2-1) mg/dl AST 23 (15-37) U/L ALT 21 (12-78) U/L Alkaline Phosphatase 49 (45-117) U/L Troponin I 0.037 (0-0.045) ng/ml NT-Pro-B Natriuret Pep 4927 H (0-1800) pg/ml Total Protein 7.5 (6.4-8.2) gm/dl Albumin 3.5 (3.4-5.0) gm/dl Globulin 4.0 (2.5-4.0) gm/dl Albumin/Globulin Ratio 0.9 (0.9-2) Lipase 80 (73-393) U/L Influenza Type A (PCR) (Neg) Influenza Type B (PCR) (Neg) 09/23/18 09/23/18 09/24/18 Range/Units 16:23 18:00 05:35 WBC 3.96 L (4.8-10.8) K/uL RBC 4.13 L (4.2-5.4) M/uL Hgb 13.3 (12.0-16.0) g/dL Hct 40.5 (37-47) % MCV 98.1 (80-100) fL MCH 32.2 (25-34) pg MCHC 32.8 (32-36) g/dL RDW Std Deviation 51.1 H (36.4-46.3) fL RDW Coeff of Bubba 14.3 (11.5-14.5) % Plt Count 154 (130-400) K/uL MPV 11.1 H (7.4-10.4) fL Immature Gran % (Auto) 0.3 % Neut % (Auto) 81.2 % Lymph % (Auto) 15.7 % [place] % (Auto) 2.5 % Eos % (Auto) 0.0 % Baso % (Auto) 0.3 % Immature Gran # (Auto) 0.01 (0.00-0.02) K/uL Neut # (Auto) 3.22 (1.4-6.5) K/uL Lymph # (Auto) 0.62 L (1.2-3.4) K/uL [place] # (Auto) 0.10 L (0.11-0.59) K/uL Eos # (Auto) 0.00 (0-0.5) K/uL Baso # (Auto) 0.01 (0-0.2) K/uL PT (9.0-12.0) Seconds INR (0.9-1.1) Sodium (136-145) mmol/L Potassium (3.5-5.1) mmol/L Chloride (98-107) mmol/L Carbon Dioxide (21-32) mmol/L Anion Gap (3-11) BUN (7-18) mg/dl Creatinine (0.6-1.2) mg/dl Est Cr Clr Drug Dosing ml/min Est GFR ( Amer) Est GFR (Non-Af Amer) BUN/Creatinine Ratio (10-20) Glucose (70-99) mg/dl POC Lactic Acid [place] 0.95 (0.90-1.70) mmol/L Calcium (8.5-10.1) mg/dl Phosphorus (2.5-4.9) mg/dl Magnesium (1.8-2.4) mg/dl Total Bilirubin (0.2-1) mg/dl AST (15-37) U/L ALT (12-78) U/L Alkaline Phosphatase (45-117) U/L Troponin I (0-0.045) ng/ml NT-Pro-B Natriuret Pep (0-1800) pg/ml Total Protein (6.4-8.2) gm/dl Albumin (3.4-5.0) gm/dl Globulin (2.5-4.0) gm/dl Albumin/Globulin Ratio (0.9-2) Lipase (73-393) U/L Influenza Type A (PCR) Neg for Influ A (Neg) Influenza Type B (PCR) Neg for Influ B (Neg) 09/24/18 09/25/18 Range/Units 05:35 05:34 WBC (4.8-10.8) K/uL RBC (4.2-5.4) M/uL Hgb (12.0-16.0) g/dL Hct (37-47) % MCV (80-100) fL MCH (25-34) pg MCHC (32-36) g/dL RDW Std Deviation (36.4-46.3) fL RDW Coeff of Bubba (11.5-14.5) % Plt Count (130-400) K/uL MPV (7.4-10.4) fL Immature Gran % (Auto) % Neut % (Auto) % Lymph % (Auto) % [place] % (Auto) % Eos % (Auto) % Baso % (Auto) % Immature Gran # (Auto) (0.00-0.02) K/uL Neut # (Auto) (1.4-6.5) K/uL Lymph # (Auto) (1.2-3.4) K/uL [place] # (Auto) (0.11-0.59) K/uL Eos # (Auto) (0-0.5) K/uL Baso # (Auto) (0-0.2) K/uL PT (9.0-12.0) Seconds INR (0.9-1.1) Sodium 136 137 (136-145) mmol/L Potassium 4.5 3.6 D (3.5-5.1) mmol/L Chloride 101 102 (98-107) mmol/L Carbon Dioxide 29 28 (21-32) mmol/L Anion Gap 6.0 6.0 (3-11) BUN 19 H 32 H D (7-18) mg/dl Creatinine 1.13 1.20 (0.6-1.2) mg/dl Est Cr Clr Drug Dosing 43.1 40.6 ml/min Est GFR ( Amer) 53.5 49.8 Est GFR (Non-Af Amer) 46.2 43.0 BUN/Creatinine Ratio 17.2 27.0 H (10-20) Glucose 154 H 170 H (70-99) mg/dl POC Lactic Acid [place] (0.90-1.70) mmol/L Calcium 8.4 L 9.0 (8.5-10.1) mg/dl Phosphorus 3.1 (2.5-4.9) mg/dl Magnesium 2.2 (1.8-2.4) mg/dl Total Bilirubin (0.2-1) mg/dl AST (15-37) U/L ALT (12-78) U/L Alkaline Phosphatase (45-117) U/L Troponin I (0-0.045) ng/ml NT-Pro-B Natriuret Pep (0-1800) pg/ml Total Protein (6.4-8.2) gm/dl Albumin (3.4-5.0) gm/dl Globulin (2.5-4.0) gm/dl Albumin/Globulin Ratio (0.9-2) Lipase (73-393) U/L Influenza Type A (PCR) (Neg) Influenza Type B (PCR) (Neg) Imaging Data Radiologist's Impression: Radiology results as stated below per my review and the radiologist's interpretation: XR chest 1V portable FINDINGS: No pneumothorax. Small bilateral pleural effusions and bibasilar densities have slightly improved. The heart remains mildly enlarged. There are surgical clips within the left axilla. Right jugular Port-A-Cath terminates at the SVC. No evidence for pulmonary edema. Osteoblastic metastatic lesions are again noted. IMPRESSION: Slight improvement in the small bilateral pleural effusions and bibasilar densities. No new focal lung consolidations. Electronically signed by: Reynold Winn M.D. 09/23/2018 4:40 PM CHEST CTA for PULMONARY ARTERIES CT DOSE: 430.97 mGy.cm HISTORY: Shortness of breath. TECHNIQUE: Multiaxial CT images of the chest were performed following the intravenous administration of contrast to evaluate the pulmonary arteries. Maximal intensity projection images were also obtained. A dose lowering technique was utilized adhering to the principles of ALARA. COMPARISON STUDY: Chest 09/23/2018. Chest CT 11/16/2016. PET CT 07/11/2018. 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 This has progressed in the interval. No pneumothorax. Small bilateral pleural effusions have slightly imp roved. Patchy left basilar densities are nonspecific but favor atelectasis. Patchy consolidative and nodular groundglass densities within the base of the right lower lobe and right middle lobe are new from the prior studies. Dominant right middle lobe nodule measures 8 mm and is best seen on image 96. Progressive focal hyperdensity within the right posterior pleural space. No change in the consolidation/atelectasis is seen within the anteromedial aspect of the right upper lobe and right middle lobe. Diffuse bronchial wall thickening within the right lung and within the mainstem bronchi. There is also mild bronchial wall thickening within the left central airways. Surgical clips within the left axilla. Prior left mastectomy. Normal esophagus. No change in the left supraclavicular soft tissue thickening. No significant mediastinal or hilar lymphadenopathy. Progressive thickening within the bilateral mainstem bronchi. The heart remains enlarged. Normal caliber thoracic aorta with no evidence for dissection. Suboptimal evaluation of the bilateral lower lobe subsegmental pulmonary arteries due to motion artifact. Otherwise, no filling defects within the remaining pulmonary arteries to suggest pulmonary embolus. IMPRESSION: 1. No evidence for pulmonary embolus with limitations as described above. 2. Small bilateral pleural effusions have slightly improved. 3. 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 4. Bilateral bronchial wall thickening, right greater than left has progressed. This could be due to metastatic disease. 5. There are new patchy consolidative and groundglass nodular densities within the right middle and right lower lobes. This may represent a pneumonia or metastatic disease. 6. Progressive hyperdensity within the right pleural space posteriorly. This could represent prior pleurodesis or enhancing metastatic disease. 7. No change in the left supraclavicular soft tissue thickening consistent with metastatic disease. Electronically signed by: Reynold Winn M.D. 09/23/2018 6:10 PM ECG Data Attestation: I personally reviewed and interpreted this ECG as follows: Indication: SOB/dyspnea Rate (beats per minute): 66 Rhythm: atrial fibrillation Findings: + ST depression (in V5 and V6) Additional Comments: Normal axis, normal QRS/QTC, LVH by voltage criteria. Blood Pressure Blood Pressure Findings: Elevated blood pressure Blood Pressure Disposition: further management by hospitalist MDM Narrative Patient here ill-appearing with frequent coarse cough noted as well as conversational dyspnea. Patient with complicated past medical history. While chest x-ray did not reveal any acute changes, CT revealed progression of her known malignancy, concern for evolving pneumonia, as well as small pleural effusions bilaterally. Given this blood cultures were drawn and sent, patient started on antibiotics. Patient was given a neb treatment here as a precaution given a remote smoking history and frequent coarse cough. Patient did not notice any significant improvement following this. Patient was made aware of all results, and discussed my concerns with her current condition. She was in agreement with plan. Case discussed with hospitalist for additional evaluation and management. Impression & Plan Pneumonia, Pleural effusion, Malignancy, Hypertension Discharge Plan Visit Data *Final* Discharge Date/Time: 09/23/18 21:03 Chief Complaint: Hypertension Stated Complaint: HEAVINESS IN CHEST, SOB,WHEEZING,COUGH,BP 220/110 ED Provider: Maty Pastor Discharge Problem: Pneumonia, Pleural effusion, Malignancy, Hypertension Patient Disposition: Admitted As Inpatient Discharge Instructions Interventions: ED Discharge Assessment Last Done: 09/23/18 21:03 Discharge Problem: Pneumonia Qualifiers: Pneumonia type: due to unspecified organism Laterality: right Lung location: unspecified part of lung Qualified Code(s): J18.9 - Pneumonia, unspecified organism Hypertension Qualifiers: Hypertension type: essential hypertension Qualified Code(s): I10 - Essential (primary) hypertension The scribe's documentation has been prepared under my direction and personally reviewed by me in its entirety. I confirm that the note above accurately reflects all work, treatment, procedures, and medical decision making performed by me.
[2018-09-23] MEDS ORDERED: AZITHROMYCIN 500 MG in DEXTROSE 5% 250 ML IV STA (18:17)
[2018-09-23] MEDS ORDERED: cefTRIAXone SODIUM 1,000 MG/50 ML BAG IV STA (18:17)
[2018-09-23] MEDS ORDERED: HydrALAZINE HCL 20 MG/ML VIAL IV STA (18:38)
[2018-09-23] MEDS ORDERED: HydrALAZINE HCL 20 MG/ML VIAL IV ONE (18:47)
[2018-09-23 18:49] LABS: Influenza A virus by PCR Neg for Influ A (Neg); Influenza B virus by PCR Neg for Influ B (Neg)
--- NOTE | 2018-09-23 20:36 | History & Physical Report ---
Date of Service September 23, 2018 Assessment & Plan (1) Pneumonia: 77 yo female with hx of recurrent pleural and pericardial effusions s/p pericardial window, metastatic breast cancer, atrial fibrillation, HTN, L arm lymphedema, ankylosing spondylitis, GERD, aortic stenosis presents with product cecilia cough x 3 days and found to have RML, RLL opacities concerning for PNA PNA with bilateral pleural effusion -CTA chest - RML and RLL paresh consolidation, small bilateral pleural effusion - improving from previously; extensive osteoblastic metastatic disease of lung - progressive per CTA -WBC and lactate normal -Started on Rocephin and Azithromycin -Received methylpred 125mg x 1 -Started on methylpred 60mg Q8H deniz -Started on duoneb Q6H HTN -continue home lisinopril, clonidine, triamtere-hctz Atrial fibrillation -continue home Xarelto Hx of Aortic stenosis Ankylosing spondylitis -held monthly denosumab and methotrexate weekly -Hold home prednisone -continue home tramadol PRN for pain Metastatic Breast cancer s/p left mastectomy -extensive osteoblastic metastatic disease of lung - progressive per CTA -stable lymphedema - L arm GERD -continue home ranitidine and prochlorperazine PRN for nausea Code: Full Med Surg with tele (2) Hypertension: (3) Ankylosing spondylitis: (4) Aortic stenosis: (5) Gastroesophageal reflux disease: (6) Metastatic breast cancer: History of Present Illness Primary Care Provider: Ernesto Becker MD 77 yo female with hx of 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 Cough less productive today. A/w fatigue, sob, chest heaviness, fever of 100.9 2 days ago, decreased doroteo etite, nausea and vomiting x 1 today (threw up water which she had prior to arrival), pt also has chronic urinary stress incontinence which is made worse by coughing. Denies any chills, STOKES/dizziness, abdominal pain, d/c, hematochezia, melena, dysuria, increased urinary frequency, hematuria. ED course: 2L NS received, Duoneb x 1, Rocephon and azithromycin, and hydralazine Allergies Allergy/AdvReac Type Severity Reaction Status Date / Time amiodarone Allergy Intermediate Low BP Verified 09/23/18 15:58 metoprolol Allergy Intermediate Low BP Verified 09/23/18 15:58 cefuroxime Allergy Mild interacted Verified 09/23/18 15:58 with other medications she was on Cipro AdvReac Mild cramping Verified 03/01/18 09:15 in legs, swelling in arm ciprofloxacin AdvReac Mild cramping Verified 09/23/18 15:58 in legs, swelling in arm diphenhydramine AdvReac Mild hyperactive Verified 09/23/18 15:58 Home Medications Home Medications Medication Instructions Recorded Confirmed Type folic acid 1 mg tablet 1 mg PO [id number] 04/19/18 09/23/18 History letrozole 2.5 mg tablet 2.5 mg PO QPM 04/19/18 09/23/18 History methotrexate 2.5 mg/mL oral 7.5 mg PO WK ml 04/19/18 09/23/18 History solution prednisone 1 mg tablet 4 mg PO QAM tab 04/19/18 09/23/18 History prochlorperazine maleate 10 mg 10 mg PO Q6H PRN tab 04/19/18 09/23/18 History tablet ranitidine 150 mg capsule 150 mg PO QAM 04/19/18 09/23/18 History tramadol 50 mg tablet 50 - 100 mg PO HS PRN tab 04/19/18 09/23/18 History calcium carbonate-vitamin D3 1 cap PO BID 09/23/18 09/23/18 History [Calcium 600 + D(3)] cholecalciferol (vitamin D3) 2,000 units PO QAM 09/23/18 09/23/18 History [Vitamin D3] clonidine HCl 0.1 mg PO DAILY PRN 09/23/18 09/23/18 History denosumab [Xgeva] 120 mg SUBCUT MONTHLY 09/23/18 09/23/18 History lisinopril 40 mg PO QAM 09/23/18 09/23/18 History rivaroxaban [Xarelto] 20 mg PO QPM 09/23/18 09/23/18 History triamterene-hydrochlorothiazid 1 tab PO QAM 09/23/18 09/23/18 History Past Med/Surg History Medical History Pericardial effusion (Resolved) Hypertension (Chronic) Ankylosing spondylitis (Chronic) Hyperparathyroidism (Chronic) Gastroesophageal reflux disease (Chronic) Aortic stenosis (Chronic) Near syncope (Acute) Vomiting Metastatic breast cancer (Chronic) Atrial fibrillation (Chronic) Bradycardia Difficulty breathing Bronchitis Ankylosing hyperostosis (Chronic) Aortic stenosis (Chronic) Atrial fibrillation (Chronic) Bradycardia (Chronic) GERD (gastroesophageal reflux disease) (Chronic) HTN, goal to be determined (Chronic) Hyperparathyroidism (Chronic) Metastasis from breast cancer (Chronic) Near syncope (Chronic) Pericardial effusion (Chronic) Surgical History S/P hysterectomy (Chronic) S/P knee replacement (Chronic) S/P mastectomy (Chronic) S/P thyroidectomy (Chronic) Social History Preferred Language: Tajik Communication Ability: Effective Pharmacy Affairs Assistant Required: No Beliefs That Will Affect Care: None marital status: Current Living Situation: Alone current occupational status: retired Feels Safe at Home: Yes Safety Concerns: Feels Safe At This Time Smoking Status: Former smoker Hx Alcohol Use: Yes Hx Substance Use: No Review of Systems as per HPI Physical Exam Vital Signs (Past 24 Hours): Last Vital Signs Temp 37.1 C 09/23/18 14:56 Pulse 73 09/23/18 20:14 Resp 22 09/23/18 20:14 BP 159/76 H 09/23/18 20:14 Pulse Ox 93 09/23/18 20:14 Physical Exam: General: appears tired but cooperative and pleasant Neuro: A&O x 4 CV: RRR, systolic murmur 2/6, no rugs/gallops Pulm: diminished breath sounds throughout with occasional wheezing and bibasilar rales appreciated, pt having course productive cough throughout exam but on RA GI: +BS, non-distended, NTTP in all quadrants LE: Healed L lower [place] region ulcer, no LE edema or calf tenderness Results & Data Laboratory Results Abnormal lab results 09/23/18 09/23/18 Range/Units 16:20 16:20 RBC 4.08 L (4.2-5.4) M/uL RDW Std Deviation 50.8 H (36.4-46.3) fL MPV 10.9 H (7.4-10.4) fL Lymph # (Auto) 0.51 L (1.2-3.4) K/uL Sodium 133 L (136-145) mmol/L BUN 23 H (7-18) mg/dl BUN/Creatinine Ratio 20.4 H (10-20) Glucose 110 H (70-99) mg/dl NT-Pro-B Natriuret Pep 4927 H (0-1800) pg/ml Diagnostic Findings CHEST CTA for PULMONARY ARTERIES CT DOSE: 430.97 mGy.cm HISTORY: Shortness of breath. TECHNIQUE: Multiaxial CT images of the chest were performed following the intravenous administration of contrast to evaluate the pulmonary arteries. Maximal intensity projection images were also obtained. A dose lowering technique was utilized adhering to the principles of ALARA. COMPARISON STUDY: Chest 09/23/2018. Chest CT 11/16/2016. PET CT 07/11/2018. 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 This has progressed in the inte rval. No pneumothorax. Small bilateral pleural effusions have slightly improved. Patchy left basilar densities are nonspecific but favor atelectasis. Patchy consolidative and nodular groundglass densities within the base of the right lower lobe and right middle lobe are new from the prior studies. Dominant right middle lobe nodule measures 8 mm and is best seen on image 96. Progressive focal hyperdensity within the right posterior pleural space. No change in the consolidation/atelectasis is seen within the anteromedial aspect of the right upper lobe and right middle lobe. Diffuse bronchial wall thickening within the right lung and within the mainstem bronchi. There is also mild bronchial wall thickening within the left central airways. Surgical clips within the left axilla. Prior left mastectomy. Normal esophagus. No change in the left supraclavicular soft tissue thickening. No significant mediastinal or hilar lymphadenopathy. Progressive thickening within the bilateral mainstem bronchi. The heart remains enlarged. Normal caliber thoracic aorta with no evidence for dissection. Suboptimal evaluation of the bilateral lower lobe subsegmental pulmonary arteries due to motion artifact. Otherwise, no filling defects within the remaining pulmonary arteries to suggest pulmonary embolus. IMPRESSION: 1. No evidence for pulmonary embolus with limitations as described above. 2. Small bilateral pleural effusions have slightly improved. 3. 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 4. Bilateral bronchial wall thickening, right greater than left has progressed. This could be due to metastatic disease. 5. There are new patchy consolidative and groundglass nodular densities within the right middle and right lower lobes. This may represent a pneumonia or metastatic disease. 6. Progressive hyperdensity within the right pleural space posteriorly. This could represent prior pleurodesis or enhancing metastatic disease. 7. No change in the left supraclavicular soft tissue thickening consistent with metastatic disease. XR chest 1V portable HISTORY: Cough. Short of breath. COMPARISON: Chest 03/23/2018. FINDINGS: No pneumothorax. Small bilateral pleural effusions and bibasilar densities have slightly improved. The heart remains mildly enlarged. There are surgical clips within the left axilla. Right jugular Port-A-Cath terminates at the SVC. No evidence for pulmonary edema. Osteoblastic metastatic lesions are again noted. IMPRESSION: Slight improvement in the small bilateral pleural effusions and bibasilar densities. No new focal lung consolidations. Code Status & VTE Plan Code Status Full VTE Prophylaxis Plan VTE Prophylaxis will be ordered: Yes Supervising Physician Co-Signing Physician Notes Attending addendum: I have physically seen this patient, have supervised the medical residents activities, and agree with the H&P unless as otherwise noted. Assessment and Plan: Pneumonia involving right middle lobe and right lower lobe/bilateral pleural effusions-- Ceftriaxone 1 g IV daily Azithromycin 500 mg IV every 24 hours Solu-Medrol 60 mg IV every 8 hours Guaifenesin extended release 600 mg by mouth twice a day Duonebs q6hwa and q2h prn Nasal cannula 2 L of oxygen titrating to keep pulse ox greater than or equal to 92%. Remainder of orders and notations as noted. Resident Activity Tracking Resident Involvement: Resident Care Provided Care Provided: Adult Hospital Medicine (1) Hypertension Hypertension type: essential hypertension Qualified Code(s): I10 - Essential (primary) hypertension (2) Pneumonia Laterality: right Lung location: unspecified part of lung Pneumonia type: due to unspecified organism Qualified Code(s): J18.9 - Pneumonia, unspecified organism
[2018-09-23] MEDS ORDERED: methylPREDNISolone 125 MG/2 ML VIAL IV STA (21:06)
[2018-09-23] MEDS ORDERED: ALUMINUM/MAGNESIUM SUSP 30 ML UDC PO PRN (21:19)
[2018-09-23] MEDS ORDERED: cloNIDine HCl 0.1 MG TAB PO PRN (21:19)
[2018-09-23] MEDS ORDERED: POLYETHYLENE (MIRALAX) 17 GM PACK PO PRN (21:19)
[2018-09-23] MEDS ORDERED: PROCHLORPERAZINE MALEATE 10 MG TAB PO PRN (21:19)
[2018-09-23] MEDS ORDERED: MAGNESIUM HYDROXIDE SUSP 30 ML UDC PO PRN (21:19)
[2018-09-23] MEDS ORDERED: ACETAMINOPHEN 325 MG TAB PO PRN (21:19)
[2018-09-23] MEDS ORDERED: methylPREDNISolone 125 MG in SYRINGE 0 ML IV SCH (21:30)
[2018-09-23] MEDS: TRAMADOL HCL 50 MG TABLET PO PRN (21:52)
[2018-09-23] MEDS: CALCIUM 600MG + VIT D 400 IU TAB PO SCH (23:55)
[2018-09-23] MEDS: RIVAROXABAN 20 MG TAB PO SCH (23:56)
[2018-09-23] MEDS: LETROZOLE 2.5 MG TAB PO SCH (23:56)
[2018-09-24] MEDS: methylPREDNISolone 60 MG in SYRINGE 0 ML IV SCH ×3 (05:54→21:33)
[2018-09-24 06:15] LABS: Basophils # (auto) 0.01 K/uL (0-0.2); Basophils % (auto) 0.3 %; Hematocrit (blood only) 40.5 % (37-47); Hemoglobin 13.3 g/dL (12.0-16.0); Immature Granulocytes # (auto) 0.01 K/uL (0.00-0.02); Immature Granulocytes % (auto) 0.3 %; Lymphocytes # (auto) 0.62 K/uL (1.2-3.4); Lymphocytes % (auto) 15.7 %; Mean Corpuscular Hgb Conc 32.8 g/dL (32-36); Mean Corpuscular Volume 98.1 fL (80-100); Mean Platelet Volume 11.1 fL (7.4-10.4); Monocytes % (auto) 2.5 %; Neutrophils # (auto) 3.22 K/uL (1.4-6.5); Neutrophils % (auto) 81.2 %; Platelet Count 154 K/uL (130-400); RDW Coefficient of Variation 14.3 % (11.5-14.5); RDW Standard Deviation 51.1 fL (36.4-46.3); Red Blood Count 4.13 M/uL (4.2-5.4); White Blood Count 3.96 K/uL (4.8-10.8)
[2018-09-24 06:44] LABS: BUN Creatinine Ratio 17.2 (10-20); Calcium 8.4 mg/dl (8.5-10.1); Creatinine Clr Calc Pharmacy 43.1 ml/min; Est GFR (African American) 53.5; Est GFR (Non-African American) 46.2; Potassium 4.5 mmol/L (3.5-5.1)
[2018-09-24] MEDS: ALBUT/IPRATROP 3MG/0.5MG NEB 3 ML VIAL NEB SCH ×3 (07:15→16:02)
[2018-09-24] MEDS: LISINOPRIL 40 MG TAB PO SCH (08:26)
[2018-09-24] MEDS: FOLIC ACID 1 MG TAB PO SCH (08:26)
[2018-09-24] MEDS: TRIAMTERENE/HCTZ 37.5/25MG TAB PO SCH (08:27)
[2018-09-24] MEDS: AZITHROMYCIN 250 MG TAB PO SCH (08:27)
[2018-09-24] MEDS: CHOLECALCIFEROL 1,000 UNITS TAB PO SCH (08:27)
[2018-09-24] MEDS: predniSONE 1 MG TAB PO SCH (08:28)
[2018-09-24] MEDS: CALCIUM 600MG + VIT D 400 IU TAB PO SCH ×2 (08:29→21:35)
--- NOTE | 2018-09-24 10:25 | Hospitalist Progress Note ---
Date of Service September 24, 2018 Assessment & Plan (1) Pneumonia: (2) Hypertension: (3) Ankylosing spondylitis: (4) Aortic stenosis: (5) Gastroesophageal reflux disease: (6) Metastatic breast cancer: 77 yo female with hx of recurrent pleural and pericardial effusions s/p pericardial window, metastatic breast cancer, atrial fibrillation, HTN, L arm lymphedema, ankylosing spondylitis, GERD, aortic stenosis admitted September 23, 2018 because of pneumonia with productive cough x 3 days PNA with bilateral pleural effusion Patient is immunocompromised with breast cancer metastasis, CTA chest - RML and RLL paresh consolidation, small bilateral pleural effusion - improving from previously; extensive osteoblastic metastatic disease of lung - progressive per CTA She was given Rocephin and azithromycin upon admission, which seems help, patient is improving will continue the same antibiotic for now Continue methylpred 60mg Q8H deniz Continue Duoneb Q6H Accelerated HTN, improved, continue home lisinopril, clonidine, triamtere-hctz Atrial fibrillation, rate controlled, continue home Xarelto Hx of Aortic stenosis, stable Ankylosing spondylitis, stable, continue monthly denosumab and methotrexate weekly, continue home tramadol PRN for pain Metastatic Breast cancer s/p left mastectomy, extensive osteoblastic metastatic disease of lung - progressive per CTA, stable lymphedema - L arm GERD, stable , continue home ranitidine and prochlorperazine PRN for nausea Continue current care, follow-up blood culture results, possible discharge in day 1 or 2, Subjective Out of bed to the restroom by herself, report cough less however still have some yellow sputum, reported wheezing is better however still have some wheezing, Denies fever and chills Left swelling which is need for edema from breast cancer which is not new Review of Systems Constitutional: positive weakness, or fatigue Respiratory: See HPI Cardiac: No chest pain, No orthopnea, No PND, No claudication, No palpitations, Abdomen: No pain, No nausea, No vomiting, No diarrhea, No constipation, No GI bleeding Musculoskeletal: No joint pain, No muscle pain, No swelling, No calf pain, No problem reported : No dysuria, No urinary frequency, No incontinence, No hematuria Neurologic: No paralysis, No weakness, No numbness/tingling, Psychiatric: No depression symptoms, No anhedonism, No anxiety, No insomnia, No substance abuse Heme: No abnormal bleeding/bruising, Skin: No rash, No itch, No new/changing skin lesions, Physical Exam Vital Signs (Past 24 Hours): Last Vital Signs Temp 36.6 C 09/24/18 07:11 Pulse 56 L 09/24/18 07:15 Resp 16 09/24/18 07:15 BP 132/60 09/24/18 09:00 Pulse Ox 94 09/24/18 07:15 Physical Exam: General: appears tired but cooperative and pleasant conversational, Neuro: A&O x 4 CV: RRR, systolic murmur 2/6, no rugs/gallops Pulm: diminished breath sounds throughout with occasional wheezing and bibasilar rales appreciated, no crackles, GI: +BS, non-distended, NTTP in all quadrants, bilateral CVA nontender LE: Healed L lower ag[place]era region ulcer, no LE edema or calf tenderness Neurological evaluation, cranial nerves II through XII was intact and there was no local deficits Results & Data Laboratory Results Laboratory Results - last 24 hr 09/23/18 09/23/18 09/23/18 16:20 16:20 16:20 WBC 6.02 RBC 4.08 L Hgb 13.0 Hct 40.1 MCV 98.3 MCH 31.9 MCHC 32.4 RDW Std Deviation 50.8 H RDW Coeff of Bubba 14.1 Plt Count 173 MPV 10.9 H Immature Gran % (Auto) 0.3 Neut % (Auto) 86.4 Lymph % (Auto) 8.5 [place] % (Auto) 4.2 Eos % (Auto) 0.3 Baso % (Auto) 0.3 Immature Gran # (Auto) 0.02 Neut # (Auto) 5.20 Lymph # (Auto) 0.51 L [place] # (Auto) 0.25 Eos # (Auto) 0.02 Baso # (Auto) 0.02 PT 11.3 INR 1.1 Sodium 133 L Potassium 4.1 Chloride 99 Carbon Dioxide 29 Anion Gap 5.0 BUN 23 H Creatinine 1.14 Est Cr Clr Drug Dosing 42.7 Est GFR ( Amer) 53.0 Est GFR (Non-Af Amer) 45.7 BUN/Creatinine Ratio 20.4 H Glucose 110 H POC Lactic Acid [place] Calcium 8.5 Magnesium 1.9 Total Bilirubin 0.5 AST 23 ALT 21 Alkaline Phosphatase 49 Troponin I 0.037 NT-Pro-B Natriuret Pep 4927 H Total Protein 7.5 Albumin 3.5 Globulin 4.0 Albumin/Globulin Ratio 0.9 Lipase 80 Influenza Type A (PCR) Influenza Type B (PCR) 09/23/18 09/23/18 09/24/18 16:23 18:00 05:35 WBC 3.96 L RBC 4.13 L Hgb 13.3 Hct 40.5 MCV 98.1 MCH 32.2 MCHC 32.8 RDW Std Deviation 51.1 H RDW Coeff of Bubba 14.3 Plt Count 154 MPV 11.1 H Immature Gran % (Auto) 0.3 Neut % (Auto) 81.2 Lymph % (Auto) 15.7 [place] % (Auto) 2.5 Eos % (Auto) 0.0 Baso % (Auto) 0.3 Immature Gran # (Auto) 0.01 Neut # (Auto) 3.22 Lymph # (Auto) 0.62 L [place] # (Auto) 0.10 L Eos # (Auto) 0.00 Baso # (Auto) 0.01 PT INR Sodium Potassium Chloride Carbon Dioxide Anion Gap BUN Creatinine Est Cr Clr Drug Dosing Est GFR ( Amer) Est GFR (Non-Af Amer) BUN/Creatinine Ratio Glucose POC Lactic Acid [place] 0.95 Calcium Magnesium Total Bilirubin AST ALT Alkaline Phosphatase Troponin I NT-Pro-B Natriuret Pep Total Protein Albumin Globulin Albumin/Globulin Ratio Lipase Influenza Type A (PCR) Neg for Influ A Influenza Type B (PCR) Neg for Influ B 09/24/18 05:35 WBC RBC Hgb Hct MCV MCH MCHC RDW Std Deviation RDW Coeff of Bubba Plt Count MPV Immature Gran % (Auto) Neut % (Auto) Lymph % (Auto) [place] % (Auto) Eos % (Auto) Baso % (Auto) Immature Gran # (Auto) Neut # (Auto) Lymph # (Auto) [place] # (Auto) Eos # (Auto) Baso # (Auto) PT INR Sodium 136 Potassium 4.5 Chloride 101 Carbon Dioxide 29 Anion Gap 6.0 BUN 19 H Creatinine 1.13 Est Cr Clr Drug Dosing 43.1 Est GFR ( Amer) 53.5 Est GFR (Non-Af Amer) 46.2 BUN/Creatinine Ratio 17.2 Glucose 154 H POC Lactic Acid [place] Calcium 8.4 L Magnesium Total Bilirubin AST ALT Alkaline Phosphatase Troponin I NT-Pro-B Natriuret Pep Total Protein Albumin Globulin Albumin/Globulin Ratio Lipase Influenza Type A (PCR) Influenza Type B (PCR) Diagnostic Findings chest Ct per report: 1. No evidence for pulmonary embolus with limitations as described above. 2. Small bilateral pleural effusions have slightly improved. 3. 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 4. Bilateral bronchial wall thickening, right greater than left has progressed. This could be due to metastatic disease. 5. There are new patchy consolidative and groundglass nodular densities within the right middle and right lower lobes. This may represent a pneumonia or metastatic disease. 6. Progressive hyperdensity within the right pleural space posteriorly. This could represent prior pleurodesis or enhancing metastatic disease. 7. No change in the left supraclavicular soft tissue thickening consistent with metastatic disease. (1) Pneumonia Laterality: right Lung location: unspecified part of lung Pneumonia type: due to unspecified organism Qualified Code(s): J18.9 - Pneumonia, unspecified organism (2) Hypertension Hypertension type: essential hypertension Qualified Code(s): I10 - Essential (primary) hypertension
[2018-09-24] MEDS ORDERED: cefTRIAXone SODIUM 1,000 MG in DEXTROSE 5% 50 ML IV SCH (18:00)
[2018-09-24] MEDS: LEVALBUTEROL HCL 0.63 MG/3 ML NEB NEB SCH (19:38)
[2018-09-24] MEDS: RIVAROXABAN 20 MG TAB PO SCH (21:35)
[2018-09-24] MEDS: LETROZOLE 2.5 MG TAB PO SCH (21:35)
[2018-09-24] MEDS ORDERED: COUGH DROP (SUGAR FREE) LOZ 24 LOZ/1 BOX BUCCAL PRN (21:41)
[2018-09-25] MEDS: TRAMADOL HCL 50 MG TABLET PO PRN ×2 (00:42→23:58)
[2018-09-25] MEDS: methylPREDNISolone 60 MG in SYRINGE 0 ML IV SCH (05:45)
[2018-09-25 06:28] LABS: Creatinine Clr Calc Pharmacy 40.6 ml/min; Est GFR (African American) 49.8; Magnesium 2.2 mg/dl (1.8-2.4); Phosphorus 3.1 mg/dl (2.5-4.9); Potassium 3.6 mmol/L (3.5-5.1)
[2018-09-25] MEDS: LEVALBUTEROL HCL 0.63 MG/3 ML NEB NEB SCH ×3 (07:13→20:09)
[2018-09-25] MEDS: AZITHROMYCIN 250 MG TAB PO SCH (08:35)
[2018-09-25] MEDS: predniSONE 1 MG TAB PO SCH ×2 (08:36→08:45)
[2018-09-25] MEDS: CALCIUM 600MG + VIT D 400 IU TAB PO SCH ×2 (08:36→20:02)
[2018-09-25] MEDS: LISINOPRIL 40 MG TAB PO SCH (08:36)
[2018-09-25] MEDS: CHOLECALCIFEROL 1,000 UNITS TAB PO SCH (08:36)
[2018-09-25] MEDS: TRIAMTERENE/HCTZ 37.5/25MG TAB PO SCH (08:36)
[2018-09-25] MEDS: IPRATROPIUM BROMIDE NEB SOLN 0.02% 2.5 ML VIAL INH SCH ×3 (11:48→20:09)
[2018-09-25] MEDS ORDERED: XOPENEX/ATROVENT 0.63mg/0.5MG NEB COMBO NEB SCH (14:00)
[2018-09-25] MEDS ORDERED: guaiFENesin SUGAR FREE 200 MG/10 ML UDC PO PRN (18:35)
--- NOTE | 2018-09-25 18:44 | Hospitalist Progress Note ---
Date of Service September 25, 2018 Assessment & Plan (1) Pneumonia: (2) Hypertension: (3) Ankylosing spondylitis: (4) Aortic stenosis: (5) Gastroesophageal reflux disease: (6) Metastatic breast cancer: 77 yo female with hx of recurrent pleural and pericardial effusions s/p pericardial window, metastatic breast cancer, atrial fibrillation, HTN, L arm lymphedema, ankylosing spondylitis, GERD, aortic stenosis admitted September 23, 2018 because of pneumonia with productive cough x 3 days PNA with bilateral pleural effusion Patient is immunocompromised with breast cancer metastasis, CTA chest - RML and RLL paresh consolidation, small bilateral pleural effusion - improving from previously; extensive osteoblastic metastatic disease of lung - progressive per CTA She has been given Rocephin and azithromycin since admission, which seems help, patient is improving , continue oral azithromycin, change Rocephin to Augmentin, continue nebulizer treatment Discontinue methylpred, start tapering dose of oral prednisone Continue Duoneb Q6H Robitussin for cough Accelerated HTN, improved, continue home lisinopril, clonidine, triamtere-hctz Atrial fibrillation, rate controlled, continue home Xarelto Hx of Aortic stenosis, stable Ankylosing spondylitis, stable, continue monthly denosumab and methotrexate weekly, continue home tramadol PRN for pain Metastatic Breast cancer s/p left mastectomy, extensive osteoblastic metastatic disease of lung - progressive per CTA, stable lymphedema - L arm, stable GERD, stable , continue home ranitidine and prochlorperazine PRN for nausea Continue current care, follow-up blood culture results, possible discharge tomorrow Subjective Out of bed to the restroom by herself, Report has sometimes spasmatic cough no sputum, wheezing is better Denies fever and chills Left swelling which is need for edema from breast cancer which is not new Otherwise 14 point organ system review were negative Physical Exam Vital Signs (Past 24 Hours): Last Vital Signs Temp 36.4 C L 09/25/18 07:48 Pulse 66 09/25/18 13:32 Resp 18 09/25/18 13:32 BP 172/68 H 09/25/18 17:00 Pulse Ox 96 09/25/18 13:32 Physical Exam: General: appears tired but cooperative and pleasant conversational, Neuro: A&O x 4 CV: RRR, systolic murmur 2/6, no rugs/gallops Pulm: diminished breath sounds throughout with occasional wheezing , no crackles, GI: +BS, non-distended, NTTP in all quadrants, soft LE: Healed L lower [place]era region ulcer, no LE edema or calf tenderness Neurological evaluation, cranial nerves II through XII was intact and there was no local deficits Results & Data Laboratory Results Laboratory Results - last 24 hr 09/25/18 05:34 Sodium 137 Potassium 3.6 D Chloride 102 Carbon Dioxide 28 Anion Gap 6.0 BUN 32 H D Creatinine 1.20 Est Cr Clr Drug Dosing 40.6 Est GFR ( Amer) 49.8 Est GFR (Non-Af Amer) 43.0 BUN/Creatinine Ratio 27.0 H Glucose 170 H Calcium 9.0 Phosphorus 3.1 Magnesium 2.2 (1) Pneumonia Laterality: right Lung location: unspecified part of lung Pneumonia type: due to unspecified organism Qualified Code(s): J18.9 - Pneumonia, unspecified organism (2) Hypertension Hypertension type: essential hypertension Qualified Code(s): I10 - Essential (primary) hypertension
[2018-09-25] MEDS ORDERED: BENZONATATE 100 MG CAPSULE PO PRN (19:12)
[2018-09-25] MEDS: RIVAROXABAN 20 MG TAB PO SCH (20:01)
[2018-09-25] MEDS: predniSONE 20 MG TAB PO SCH (20:02)
[2018-09-25] MEDS: AMOXICILLIN/CLAVULANATE 875 MG TAB PO SCH (20:03)
[2018-09-25] MEDS: LETROZOLE 2.5 MG TAB PO SCH (20:04)
[2018-09-26] MEDS: IPRATROPIUM BROMIDE NEB SOLN 0.02% 2.5 ML VIAL INH SCH ×2 (02:17→07:03)
[2018-09-26] MEDS: LEVALBUTEROL HCL 0.63 MG/3 ML NEB NEB SCH ×2 (02:17→07:04)
[2018-09-26 07:08] VITALS: PULSE 75; O2SAT 97
[2018-09-26 07:32] VITALS: BP 118/72; TEMP 97.9
[2018-09-26] MEDS: AMOXICILLIN/CLAVULANATE 875 MG TAB PO SCH (08:49)
[2018-09-26] MEDS: CALCIUM 600MG + VIT D 400 IU TAB PO SCH (08:49)
[2018-09-26] MEDS: FOLIC ACID 1 MG TAB PO SCH (08:49)
[2018-09-26] MEDS: predniSONE 20 MG TAB PO SCH (08:49)
[2018-09-26] MEDS: CHOLECALCIFEROL 1,000 UNITS TAB PO SCH (08:49)
[2018-09-26] MEDS: AZITHROMYCIN 250 MG TAB PO SCH (08:50)
[2018-09-26] MEDS: LISINOPRIL 40 MG TAB PO SCH (08:50)
[2018-09-26] MEDS: TRIAMTERENE/HCTZ 37.5/25MG TAB PO SCH (08:50)
--- NOTE | 2018-09-26 10:00 | Discharge Summary ---
Date of Service September 26, 2018 Principal Diagnosis no Discharge Data Allergies Allergy/AdvReac Type Severity Reaction Status Date / Time amiodarone Allergy Intermediate Low BP Verified 09/23/18 15:58 metoprolol Allergy Intermediate Low BP Verified 09/23/18 15:58 cefuroxime Allergy Mild interacted Verified 09/23/18 15:58 with other medications she was on Cipro AdvReac Mild cramping Verified 03/01/18 09:15 in legs, swelling in arm ciprofloxacin AdvReac Mild cramping Verified 09/23/18 15:58 in legs, swelling in arm diphenhydramine AdvReac Mild hyperactive Verified 09/23/18 15:58 Consultations 09/23/18 18:48 ED Decision to Admit Stat Ordered Studies 09/23/18 17:11 CT angio chest PE protocol Stat Hospital Course (1) Pneumonia: (2) Hypertension: (3) Ankylosing spondylitis: (4) Aortic stenosis: (5) Gastroesophageal reflux disease: (6) Metastatic breast cancer: 77 yo female with hx of recurrent pleural and pericardial effusions s/p pericardial window, metastatic breast cancer, atrial fibrillation, HTN, L arm lymphedema, ankylosing spondylitis, GERD, aortic stenosis admitted September 23, 2018 because of pneumonia with productive cough x 3 days PNA with bilateral pleural effusion, stable improving Patient is immunocompromised with breast cancer metastasis, CTA chest - RML and RLL paresh consolidation, small bilateral pleural effusion - improving from previously; extensive osteoblastic metastatic disease of lung - progressive per CTA She has been given Rocephin and azithromycin since admission, which seems help, patient is improving , continue oral azithromycin, change Rocephin to Augmentin, continue nebulizer treatment Discontinue methylpred, has been tapering dose of oral prednisone, has adviced to resume home dose of oral prednison, but tomorrow you can take 2 tab of 4 mg, and then the day after tomorrow you just take 1 tab of 4 mg, and then resume your home dose Because patient was having palpitation and tremor therefore the inhaler was changed from albuterol to Xopenex, Accelerated HTN, improved, continue home lisinopril, clonidine, triamtere-hctz Atrial fibrillation, rate controlled, continue home Xarelto Hx of Aortic stenosis, stable Ankylosing spondylitis, stable, continue monthly denosumab and methotrexate weekly, continue home tramadol PRN for pain Metastatic Breast cancer s/p left mastectomy, extensive osteoblastic metastatic disease of lung - progressive per CTA, stable lymphedema - L arm, stable GERD, stable , continue home ranitidine and prochlorperazine PRN for nausea So far culture were negative Subjective at discharge no more pasmatic cough no sputum, less wheezing , has been up and walk, Denies fever and chills Left arm swelling which is not new , it is lymphedema, from breast cancer Otherwise 14 point organ system review were negative Physical Exam at discharge General: cooperative and pleasant conversational, speaking full sentences Neuro: A&O x 4 CV: RRR, systolic murmur 2/6, no rugs/gallops Pulm: diminished breath sounds, occasional wheezing , no crackles, GI: +BS, non-distended, NTTP in all quadrants, soft LE: Left upper swelling edema which is not new , healed L lower [place] region ulcer, no LE edema or calf tenderness Neurological evaluation, cranial nerves II through XII was intact and there was no local deficits Lab data upon discharge: Microbiology 09/24/18 08:57 Blood Blood Culture - Preliminary No growth to date. 09/24/18 08:45 Blood Blood Culture - Preliminary No growth to date. Total Time Total Time Spent Total Time Spent (In Minutes): 35 Discharge Plan Discharge Items Patient Disposition: Home - Self-Care Reason For Visit: PNEUMONIA Discharge Diagnosis: pneuminia Condition: Fair Discharge Goals: Decrease discomfort, Diagnostic testing, Improve disease cont rol and Improve function Activity: Resume your previous activity Non-emergency contact: Primary Care Provider and Oncologist Follow-up/Referrals: ProErnesto MD [Primary Care Provider] - Diet: Heart Healthy Addtl Provider Instructions: you have Pneumonia: you need to continue antibiotics and inhaler you can resume home dose of oral prednison, but tomorrow you can take 2 tab of 4 mg, and then the day after tomorrow you just take 1 tab of 4 mg, and then resume your home dose you have Metastatic Breast cancer please follow up with your oncologist you need to follow up with your primary care physician in 1 week, - take medication as instructed, never overdose or any misuse, or take with alcohol, because misuse of medicine may cause organ damage or , call me, or your primary care physician if have questions of discharge medicaitons. - call your primary care physician, or go to local emergency room if has any fever/chill, chest pain, shortness of breathing, nausea/vomiting/abdominal pain, facial droop/slurry speech/local weakness, or if has any questions. - fall precaution - diet as instructed Prescriptions: New azithromycin [Zithromax] 250 mg Tablet 250 mg PO QAM 2 Days Qty: 2 RF: 0 levalbuterol HCl 0.63 mg/3 mL Solution For Nebulization 0.63 mg NEB Q6R 7 Days Qty: 1 RF: 0 guaifenesin 100 mg/5 mL Liquid 5 ml PO Q6H 7 Days Qty: 100 RF: 0 benzonatate [Tessalon Perles] 100 mg Capsule 100 mg PO Q6H PRN (Reason: cough) 7 Days Qty: 30 RF: 0 ipratropium bromide 0.02 % Solution 0.5 mg Inhalation Q6R 7 Days Qty: 1 RF: 0 amoxicillin-pot clavulanate 875-125 mg Tablet 1 tab PO BID 7 Days Qty: 14 RF: 0 Continued prochlorperazine maleate 10 mg tablet 10 mg PO Q6H PRN (Reason: Nausea) RF: 0 tramadol 50 mg tablet 50 - 100 mg PO HS PRN (Reason: pain) RF: 0 prednisone 1 mg tablet 4 mg PO QAM RF: 0 folic acid 1 mg tablet 1 mg PO [id number] RF: 0 ranitidine HCl 150 mg capsule 150 mg PO QAM RF: 0 letrozole 2.5 mg tablet 2.5 mg PO QPM RF: 0 methotrexate 2.5 mg/mL solution 7.5 mg PO WK RF: 0 clonidine HCl 0.1 mg tablet 0.1 mg PO DAILY PRN (Reason: Hypertension) RF: 0 lisinopril 20 mg tablet 40 mg PO QAM RF: 0 triamterene-hydrochlorothiazid 37.5-25 mg tablet 1 tab PO QAM RF: 0 Calcium 600 + D(3) 600 mg calcium- 200 unit Capsule 1 cap PO BID RF: 0 cholecalciferol (vitamin D3) [Vitamin D3] 2,000 unit Capsule 2,000 units PO QAM RF: 0 Xgeva 120 mg/1.7 mL (70 mg/mL) Solution 120 mg SUBCUT MONTHLY RF: 0 Xarelto 20 mg tablet 20 mg PO QPM RF: 0 Stand-Alone Forms: My [facility] Discharge Orders: Discharge Order (Routine); Ordered 09/26/18 Ordered By: Ian Zhang Admission Data Admit Date/Time: 09/23/18 20:31 Attending Provider: Ian Zhang Admit Provider: Baldemar Brasher Primary Care Provider: Ernesto Becker Other Providers: Martin Smalls ; Baldemar Brasher Service: Medical
== END 2018-09-26 11:30 | disposition home or self-care (01) | DRG 194 ==
LOC: ED 14:38 → SUATTDRO 20:31 → 4E 20:31